=== PATIENT | male | born 1945 | race Hispanic/Latino ===

== ENCOUNTER 2018-07-03 10:36 | Emergency (ER) | payer MEDICARE ==
--- OUTSIDE RECORDS SUMMARY | 2018-07-03 10:38 | XMS REPORT | Clinical Summary ---
:1945 Author Organization [facility] Address [address] [place] [address] Care Team Providers Name Role Phone Unavailable Primary Care Provider Unavailable Allergies No Known Allergies Medications Medication Sig Dispensed Refills Start Date End Date Status tamsulosin (FLOMAX) 0.4 Take 0.4 mg by 0 Active mg Cap 24 hr capsule mouth daily. finasteride (PROSCAR) 5 Take 5 mg by 0 Active mg tablet mouth daily. pantoprazole (PROTONIX) Take 40 mg by 0 Active 40 MG tablet mouth daily. doxazosin (CARDURA) 2 MG Take 2 mg by 0 Active tablet mouth nightly. Active Problems Not on file Encounters Date Type Specialty Care Team Description 07/03/2018 Hospital Encounter Pre-Admission Testing Resource, Ana María Arrived Preadmit Phone after 07/02/2017 Social History Tobacco Use Types Packs/Day Years Used Date Former Smoker Quit: 2002 Smokeless Tobacco: Never Used Alcohol Use Drinks/Week oz/Week Comments No Alcohol Habits Answer Date Recorded How often do you have a drink containing alcohol? Never 07/03/2018 How many drinks containing alcohol do you have on a typical Not asked day when you are drinking? How often do you have six or more drinks on one occasion? Not asked Sex Assigned at Date Recorded Not on file Job Start Date Occupation Industry Not on file Not on file Not on file Travel History Travel Start Travel End No recent travel history available. Last Filed Vital Signs Vital Sign Reading Time Taken Blood Pressure - - Pulse - - Temperature - - Respiratory Rate - - Oxygen Saturation - - Inhaled Oxygen Concentration - - Weight 88.9 kg (196 lb) 07/03/2018 8:27 AM CONVERTIBLE SOFA BEDSPRING TESTER Height 165.1 cm (5' 5") 07/03/2018 8:27 AM CONVERTIBLE SOFA BEDSPRING TESTER Body Mass Index 32.62 07/03/2018 8:27 AM CONVERTIBLE SOFA BEDSPRING TESTER Plan of Treatment Date Type Specialty Care Team Description 07/05/2018 Hospital Encounter George Kaplan MD [address] [place] [address] 07/05/2018 Surgery George Kaplan MD CYSTOSCOPY,TURP [address] [place], [place] [id number] Results Not on fileafter 07/02/2017 Insurance Payer Benefit Plan / Group Subscriber ID Type Phone Address [employer] - MEDICARE AARP/MEDICARE COMPLETE xxxxxxxxx [facility] (Home) [place] [address]
--- NOTE | 2018-07-03 11:54 | RAD REPORT ---
EXAM DESCRIPTION: CT - Head Brain Wo Cont - 07/03/2018 11:43 am CLINICAL HISTORY: dizziness, dysequilibrium Headache, hypertension COMPARISON: HEAD BRAIN W O CONTRAST dated 01/07/2012; MAXILLOFACIAL W O CONTRAST dated 10/13/2011; Ches t Abdomen Pelvis W Cont dated 04/22/2016 TECHNIQUE: All CT scans are performed using dose optimization technique as appropriate and may inclu de automated exposure control or mA/KV adjustment according to patient size. FINDINGS: No intracranial hemorrhage, hydrocephalus or extra-axial fluid collection.Mild generalized brain atrophy is present with mild periventricular and deep white matter chronic microvascular ische amanda changes.No areas of brain edema or evidence of midline shift. Mild mucosal thickening is seen involving the ethmoid and sphenoid sinuses. The paranasal sinuses and mastoids are otherwise clear. The calvarium is intact. IMPRESSION: No acute intracranial abnormality.
[2018-07-03 12:05] LABS: Absolute Lymphocytes (CBC) 1.8 K/uL (0.7-4.9); Absolute Monocytes 0.8 K/uL (0.1-1.3); Basophils % 1.5 % (0-1.3); Eosinophils % 4.5 % (0-4.4); Lymphocytes % 19.8 % (15.3-44.8); Monocytes % 8.9 % (3.3-12.3); RBC Red Blood Cell Count 5.37 M/uL (4.33-5.43)
[2018-07-03 12:08] LABS: Protime INR 1.03
[2018-07-03] MEDS ORDERED: LORazepam 2 MG/ML VIAL ONE (12:10)
[2018-07-03 12:26] LABS: ALT/SGPT 31 U/L (12-78); AST/SGOT 19 U/L (15-37); Alkaline Phosphatase 88 U/L (45-117); BUN Blood Urea Nitrogen 12 mg/dL (7-18); Bicarbonate 27 mmol/L (21-32); Bilirubin Direct < 0.1 mg/dL (0-0.2); Bilirubin Total 0.3 mg/dL (0.2-1.0); Glucose Level 106 mg/dL (74-106); NT PRO-BNP 128 pg/mL (<125); Potassium 4.2 mmol/L (3.5-5.1); Protein, Total 8.7 g/dL (6.4-8.2); Sodium Level 140 mmol/L (136-145); Troponin (Emerg Dept Use Only) < 0.02 ng/mL (0.0-0.045)
[2018-07-03] MEDS ORDERED: DOXAZOSIN 2 MG TAB PO ONE (13:15)
[2018-07-03 13:45] LABS: Urine Blood NEGATIVE (NEG); Urine Glucose NEGATIVE (NEG); Urine Protein NEGATIVE (NEG); Urine Specific Gravity 1.015 (1.005-1.030); Urine pH 5.5 (5.0-7.0)
--- NOTE | 2018-07-03 14:38 | ER ---
Nurse's Notes [facility] Name: Jaswant Funes Age: 73 yrs Sex: Male : 1945 Arrival Date: 07/03/2018 Time: 10:39 Bed 5 Private MD: Malina Greenwood H Diagnosis: Elevated Blood Pressure;Intermittent Dizziness Presentation: 07/03 10:56 Presenting complaint: Patient states: "I'm about to have prostate surgery and ss the doctor told me to go to the ER because my blood pressure has been running high and they don't want me having a stroke." Pt reports he has been out of his BP medication x 3 week and he has not been able to get a refill due to finances. Pt c/o intermittent dizziness and headaches x 4 days. Transition of care: patient was not received from another setting of care. Onset of symptoms is unknown. Risk Assessment: Do you want to hurt yourself or someone else? Patient reports no desire to harm self or others. Initial Sepsis Screen: Does the patient meet any 2 criteria? No. Patient's initial sepsis screen is negative. Does the patient have a suspected source of infection? No. Patient's initial sepsis screen is negative. Care prior to arrival: None. 10:56 Method Of Arrival: Wheelchair ss 10:56 Acuity: TODD 4 ss Historical: - Allergies: 10:48 Morphine; tw2 - Home Meds: 10:58 tamsulosin 0.4 mg oral cp24 1 cap once daily [Active]; pantoprazole 40 mg oral TbEC 1 ss tab once daily [Active]; finasteride 5 mg oral tab 1 tab once daily [Active]; doxazosin 2 mg oral tab 1 tab once daily [Active]; - PMHx: 10:48 Bat Bite - left hand; GERD; Hypertension; Rattlesnake Bite - right hand; tw2 10:58 BPH; ss - Immunization history:: Adult Immunizations. - Social history:: Smoking status: . - Ebola Screening: : Patient denies travel to an Ebola-affected area in the 21 days before illness onset. - Family history:: pertinent for hypertension. - Hospitalizations: : No recent hospitalization is reported. Screenin:46 Abuse screen: Denies threats or abuse. Nutritional screening: No deficits noted. tw2 Tuberculosis screening: No symptoms or risk factors identified. Fall Risk None identified. Assessment: 11:30 General: Appears in no apparent distress. uncomfortable, Behavior is calm, cooperative, jl7 appropriate for age. Pain: Complains of pain in NG Pain currently is 5 out of 10 on a pain scale. Neuro: Level of Consciousness is awake, alert, obeys commands, Oriented to person, place, time, situation, Analog Ic Design Architect are equal bilaterally Moves all extremities. Full function Speech is normal, Facial symmetry appears normal. Cardiovascular: Patient's skin is warm and dry. Respiratory: Airway is patent Respiratory effort is even, unlabored, Respiratory pattern is regular, symmetrical. Derm: Skin is pink, warm \\T\\ dry. 11:50 Reassessment: Pt states "Can I get something to calm me down?" Pt appears mildly jl7 anxious at this time. Instructed pt to take some slow deeps breaths. ERD notified, see MAR for orders. 12:30 Reassessment: Patient appears in no apparent distress at this time. Patient and/or jl7 family updated on plan of care and expected duration. Pain level reassessed. Patient is alert, oriented x 3, equal unlabored respirations, skin warm/dry/pink. Patient states symptoms have improved. 13:30 Reassessment: Patient appears in no apparent distress at this time. Patient and/or jl7 family updated on plan of care and expected duration. Pain level reassessed. Patient is alert, oriented x 3, equal unlabored respirations, skin warm/dry/pink. 14:30 Reassessment: Patient appears in no apparent distress at this time. Patient and/or jl7 family updated on plan of care and expected duration. Pain level reassessed. Patient is alert, oriented x 3, equal unlabored respirations, skin warm/dry/pink. Patient states feeling better. Patient states symptoms have improved. Vital Signs: 10:58 BP 175 / 115; Pulse 75; Resp 18; Temp 97.6(TE); Pulse Ox 98% on R/A; Weight 88.9 kg; ss Height 5 ft. 5 in. (165.10 cm); Pain 5/10; 12:00 BP 149 / 101; Pulse 75; Resp 16 S; Pulse Ox 98% on R/A; jl7 13:00 BP 143 / 99; Pulse 73; Resp 16 S; Pulse Ox 98% on R/A; jl7 14:00 BP 130 / 79; Pulse 87; Resp 20 S; Pulse Ox 96% on R/A; jl7 10:58 Body Mass Index 32.62 (88.90 kg, 165.10 cm) ED Course: 10:39 Patient arrived in ED. mr 10:39 Malina Greenwood DO is Private Physician. mr 10:45 Belle Serrano, RN is Primary Nurse. 10:45 Hugo Meek MD is Attending Physician. wa 10:46 Arm band placed on. tw2 10:46 Bed in low position. Call light in reach. monitor car operator on. Pulse ox on. NIBP on. tw2 10:57 Triage completed. 11:17 Azalea Yoon RN is Primary Nurse. jl7 11:34 CT completed. Patient tolerated procedure well. Patient moved to CT via wheelchair. Patient moved back from CT. 11:43 CT Head Brain wo Cont In Process Unspecified. EDCA 12:00 Initial lab(s) drawn, by me, sent to lab. Inserted saline lock: 20 gauge in left hand, jl7 using aseptic technique. Blood collected. 14:36 Malina Greenwood DO is Referral Physician. wa 14:37 Colin Mace MD is Referral Physician. wa 14:54 No provider procedures requiring assistance completed. IV discontinued, intact, jl7 bleeding controlled, No redness/swelling at site. Pressure dressing applied. Administered Medications: 13:25 Drug: Doxazosin 2 mg Route: PO; jl7 14:24 Follow up: Response: No adverse reaction; Blood pressure is lowered jl7 14:54 Drug: Aspirin Chewable Tablet 324 mg Route: PO; jl7 14:54 Follow up: Response: Medication administered at discharge. jl7 Outcome: 14:37 Discharge ordered by . wa 14:54 Discharged to home ambulatory. jl7 14:54 Condition: stable 14:54 Discharge instructions given to patient, family, Instructed on discharge instructions, follow up and referral plans. medication usage, Demonstrated understanding of instructions, follow-up care, medications, Prescriptions given X 1. 14:55 Patient left the ED. jl7 Signatures: Dispatcher [employer] EDCA Sandy Coleman Thania Minaya Belle Serrano, RN RN ss Tamy Mora RN RN tw2 Azalea Yoon RN RN jl7 Hugo Meek MD MD wa Corrections: (The following items were deleted from the chart) : 10:48 Home Meds: Prevacid 30 mg Oral cpDR 1 cap once daily; 10:58 10:48 Home Meds: acetaminophen-codeine 300-30 mg Oral tab 1 tab as needed;
--- NOTE | 2018-07-03 14:39 | EDPHYS ---
Physician Documentation [facility] Name: Jaswant Funes Age: 73 yrs Sex: Male : 1945 Arrival Date: 07/03/2018 Time: 10:39 Bed 5 Private MD: Malina Greenwood H ED Physician Hugo Meek HPI: 07/03 11:37 This 73 yrs old Male presents to ER via Wheelchair with complaints of High wa Blood Pressure, Dizziness, Headache. 11:37 The patient presents with lightheadedness. Onset: The symptoms/episode began/occurred 4 wa day(s) ago. Context: c/o occasional dizziness x 1 month. last 4 days more persistent. describes as lightheaded, feeling like about to pass out. admits to mild NG. states BP elevated. Has not filled his doxaxosin for the past 2 weeks. slated for surgery on prostate this week. advised to seek care for elevated BP. denies vomiting or off balance. denies photophobia. Denies chest pain or SOB. admits to LE swelling. Also has chronic low back pain. denies bloody urine or difficulty voiding at the moment. denies fever or chills. Modifying factors: The symptoms are alleviated by nothing, the symptoms are aggravated by walking, standing.. Associated signs and symptoms: Pertinent positives: headache, Pertinent negatives: agitation, chest pain, confusion, diaphoresis, focal weakness, head injury, nausea, numbness, palpitations, shortness of breath, syncope, tingling, vomiting. Severity of symptoms: At their worst the symptoms were moderate in the emergency department the symptoms are unchanged. Patient's baseline: Neuro: alert and fully oriented, Motor: no deficits, Ambulation: walks without assistance, Speech: normal, The patient has a previous history of HTN. The patient has experienced similar episodes in the past, a few times. The patient has not recently seen a physician. PMD: Dr. Greenwood. Scheduled for a TURP at a [facility] location this week. Historical: - Allergies: 10:48 Morphine; tw2 - Home Meds: 10:58 tamsulosin 0.4 mg oral cp24 1 cap once daily [Active]; pantoprazole 40 mg oral TbEC 1 ss tab once daily [Active]; finasteride 5 mg oral tab 1 tab once daily [Active]; doxazosin 2 mg oral tab 1 tab once daily [Active]; - PMHx: 10:48 Bat Bite - left hand; GERD; Hypertension; Rattlesnake Bite - right hand; tw2 10:58 BPH; ss - Immunization history:: Adult Immunizations. - Social history:: Smoking status: . - Ebola Screening: : Patient denies travel to an Ebola-affected area in the 21 days before illness onset. - Family history:: pertinent for hypertension. - Hospitalizations: : No recent hospitalization is reported. ROS: 12:17 Constitutional: Negative for fever, chills, and weight loss, Eyes: Negative for injury, wa pain, redness, and discharge, ENT: Negative for injury, pain, and discharge, Neck: Negative for injury, pain, and swelling, Cardiovascular: Negative for chest pain, palpitations, and edema, Respiratory: Negative for shortness of breath, cough, wheezing, and pleuritic chest pain, Abdomen/GI: Negative for abdominal pain, nausea, vomiting, diarrhea, and constipation, Back: Negative for injury and pain, : Negative for injury, bleeding, discharge, and swelling, MS/Extremity: Negative for injury and deformity, Skin: Negative for injury, rash, and discoloration, Psych: Negative for depression, anxiety, suicide ideation, homicidal ideation, and hallucinations. 12:17 Neuro: Positive for dizziness, headache, Negative for seizure activity, syncope, tingling, tremor, visual changes, weakness. 12:17 All other systems are negative. Exam: 12:20 Constitutional: This is a well developed, well nourished patient who is awake, alert, wa and in no acute distress. Head/Face: Normocephalic, atraumatic. Eyes: Pupils equal round and reactive to light, extra-ocular motions intact. Lids and lashes normal. Conjunctiva and sclera are non-icteric and not injected. Cornea within normal limits. Periorbital areas with no swelling, redness, or edema. ENT: Nares patent. No nasal discharge, no septal abnormalities noted. Tympanic membranes are normal and external auditory canals are clear. Oropharynx with no redness, swelling, or masses, exudates, or evidence of obstruction, uvula midline. Mucous membranes moist. Neck: Trachea midline, no thyromegaly or masses palpated, and no cervical lymphadenopathy. Supple, full range of motion without nuchal rigidity, or vertebral point tenderness. No Meningismus. Chest/axilla: Normal chest wall appearance and motion. Nontender with no deformity. No lesions are appreciated. Cardiovascular: Regular rate and rhythm with a normal S1 and S2. No gallops, murmurs, or rubs. Normal PMI, no JVD. No pulse deficits. Respiratory: Lungs have equal breath sounds bilaterally, clear to auscultation and percussion. No rales, rhonchi or wheezes noted. No increased work of breathing, no retractions or nasal flaring. Abdomen/GI: Soft, non-tender, with normal bowel sounds. No distension or tympany. No guarding or rebound. No evidence of tenderness throughout. Back: No spinal tenderness. No costovertebral tenderness. Full range of motion. Skin: Warm, dry with normal turgor. Normal color with no rashes, no lesions, and no evidence of cellulitis. MS/ Extremity: Pulses equal, no cyanosis. Neurovascular intact. Full, normal range of motion. Psych: Awake, alert, with orientation to person, place and time. Behavior, mood, and affect are within normal limits. 12:20 Neuro: Orientation: is normal, Mentation: is normal, Memory: is normal, Cranial nerves: grossly normal, Cerebellar function: is grossly normal based on the patient's age, normal finger to nose testing, heel to villa testing is normal, able to perform alternating rapid hand movements. Vital Signs: 10:58 BP 175 / 115; Pulse 75; Resp 18; Temp 97.6(TE); Pulse Ox 98% on R/A; Weight 88.9 kg; ss Height 5 ft. 5 in. (165.10 cm); Pain 5/10; 12:00 BP 149 / 101; Pulse 75; Resp 16 S; Pulse Ox 98% on R/A; jl7 13:00 BP 143 / 99; Pulse 73; Resp 16 S; Pulse Ox 98% on R/A; jl7 14:00 BP 130 / 79; Pulse 87; Resp 20 S; Pulse Ox 96% on R/A; jl7 10:58 Body Mass Index 32.62 (88.90 kg, 165.10 cm) MDM: 10:45 Patient medically screened. hi 12:23 Differential diagnosis: dizziness. on tamsulosin started recently. also on finasteride wa and doxazosin. Consider med involvement. out of meds. noted HTN. needs work up to r/o neuro vs cardiovascular etiology. will monitor, work up and reassess. 12:39 Data reviewed: vital signs, nurses notes, lab test result(s), EKG, radiologic studies. wa Test interpretation: by ED physician or midlevel provider: EKG: interpreted by me: HR 74. [place] normal. Intervals within normal limits. normal QRS and T waves. no obvious ischemic or dysrhythmic changes. . 12:41 Test interpretation: by ED physician or midlevel provider: normal CBC; CMP; troponin; wa BNP; PT/INR. . 12:41 Test interpretation: by ED physician or midlevel provider: normal CXR. Head CT: no wa acute process. Response to treatment: the patient's symptoms have markedly improved after treatment, noted repeat BP at 1230 Hrs: 149/101. improved. pt resting comfortably. ordered own dose of doxazoxin. pending admin.. 12:52 Test interpretation: by ED physician or midlevel provider: UA normal. wa 13:44 ED course: 1345 hrs: BP 143/99. pt eating lunch. no complaints at this time. advised me wa to call pre-op nurse at [facility] regarding his results as they referred him here. got voice-mail. Left message to call back. 14:35 ED course: 1435 hrs: BP 143/79. spoke with pre-op nurse Latoya. will have pt take his wa results to his PCP to discuss clearance. . 07/03 11:27 Order name: Basic Metabolic Panel; Complete Time: 12:07/03 11:27 Order name: CBC with Diff; Complete Time: 12:24 07/03 11:27 Order name: Hepatic Function; Complete Time: 12:07/03 11:27 Order name: Magnesium; Complete Time: 12:07/03 11:27 Order name: Protime (+inr); Complete Time: 12:24 07/03 11:27 Order name: Troponin (emerg Dept Use Only); Complete Time: 12:31 07/03 11:27 Order name: CT Head Brain wo Cont; Complete Time: 12:03 07/03 11:27 Order name: EKG; Complete Time: 11:28 07/03 11:27 Order name: Cardiac monitoring; Complete Time: 13:04 hi 07/03 11:27 Order name: BNP; Complete Time: 12:29 hi 07/03 12:55 Order name: Urine Dipstick--Ancillary (enter results) 07/03 12:58 Order name: Diet Regular; Complete Time: 12:59 07/03 11:27 Order name: EKG - Nurse/Tech; Complete Time: 13:04 hi 07/03 11:27 Order name: IV Saline Lock; Complete Time: 13: hi 07/03 11:27 Order name: Labs collected and sent; Complete Time: 13:04 07/03 11:27 Order name: O2 Sat Monitoring; Complete Time: 13: hi 07/03 11:27 Order name: Urine Dipstick-Ancillary (obtain specimen); Complete Time: 14:17 hi Administered Medications: 13:25 Drug: Doxazosin 2 mg Route: PO; [facility] 14:24 Follow up: Response: No adverse reaction; Blood pressure is lowered [facility] 14:54 Drug: Aspirin Chewable Tablet 324 mg Route: PO; [facility] 14:54 Follow up: Response: Medication administered at discharge. [facility] Disposition: 07/03/18 14:37 Discharged to Home. Impression: Elevated Blood Pressure, Intermittent Dizziness. - Condition is Stable. - Discharge Instructions: Hypertension, Dizziness, [id number]. - Prescriptions for Doxazosin 2 mg Oral Tablet - take 1 tablet by ORAL route once daily; 30 tablet. - Medication Reconciliation Form, Thank You Letter, Antibiotic Education, Prescription Opioid Use form. - Follow up: Malina Greenwood DO; When: Today; Reason: discuss presentation. Follow up: Colin Mace MD; When: 2 - 3 days; Reason: Recheck today's complaints. - Problem is new. - Symptoms have improved. - Notes: call Dr. Greenwood to connect with your surgeon for clearance for surgery. follow up with Dr. Mace, the Neurologist, for further evaluation of your dizziness. Return to ER immediately if rapidly worsening symptoms and or concerns. Continue to take your blood pressure pills daily as prescribed. Signatures: Dispatcher [employer] EDAR Belle Serrano RN RN ss Tamy Mora RN RN 2 Azalea Yoon RN RN jl7 Hugo Meek MD MD wa Corrections: (The following items were deleted from the chart) 10:58 10:48 Home Meds: Prevacid 30 mg Oral cpDR 1 cap once daily; 2 10:58 10:48 Home Meds: acetaminophen-codeine 300-30 mg Oral tab 1 tab as needed; 2 14:55 14:37 07/03/2018 14:37 Discharged to Home. Impression: Elevated Blood Pressure; jl7 Intermittent Dizziness. Condition is Stable. Forms are Medication Reconciliation Form, Thank You Letter, Antibiotic Education, Prescription Opioid Use. Follow up: Malina Greenwood; When: Today; Reason: discuss presentation. Follow up: Colin Mace; When: 2 - 3 days; Reason: Recheck today's complaints. Problem is new. Symptoms have improved. ann marie
[2018-07-03] MEDS ORDERED: ASPIRIN 81 MG CHEWABLE TABLET ONE (14:57)
[2018-07-03 15:02] VITALS: TEMP 97.6
[2018-07-03 15:05] VITALS: BP 130/79; O2SAT 96
--- NOTE | 2018-07-03 17:08 | EKG ---
Test Date: 2018-07-03 Test Time: 11:49:20 Electrical System Specialist: ROXANNE MEASUREMENT RESULTS: Intervals: Rate: 74 AK: 188 QRSD: 80 QT: 366 QTc: 406 [place]: P: 35 AK: 188 QRS: 23 T: 50 INTERPRETIVE STATEMENTS: Normal sinus rhythm Normal ECG Compared to ECG 06/21/2018 11:37:05 ST (T wave) deviation no longer present Electronically Signed On 07-03-18 17:06:49 REAL ESTATE MANAGEMENT SPECIALIST by Alejandro Urrutia
== END 2018-07-03 14:55 | disposition home or self-care (01) ==
LOC: ER 10:36
DX: I10 Essential (primary) hypertension (principal); K21.9 Gastro-esophageal reflux disease without esophagitis; Z88.5 Allergy status to narcotic agent
CPT/HCPCS: 36415; 70450; 80048; 80076; 81003; 83735; 83880; 84484; 85025; 85610; 93005; 99285

== ENCOUNTER 2019-01-02 10:51 | Emergency (ER) | payer MEDICARE ==
--- OUTSIDE RECORDS SUMMARY | 2019-01-02 10:55 | XMS REPORT | Encounter Summary ---
:1945 Author Reason for Visit POST OP Instructions 1. Benign prostatic hyperplasia PSA, total + free, serum or plasma benign prostatic hyperplasia: care instructions Myrbetriq 25 mg tablet,extended release Discussion Note: None recorded. Plan of Care Reminders Provider Appointments FOLLOW-UP George Kaplan MD 30 02/13/2019 12:30PM Lab PSA, Total [facility] + Free, Serum or 08/09/2018 [facility] (Lab) Plasma Referral None recorded. Procedures None recorded. Surgeries None recorded. Imaging None recorded. Medications Name Start Date acetaminophen 300 mg-codeine 30 mg tablet amantadine HCl 100 mg capsule doxazosin 2 mg tablet finasteride 5 mg tablet Take 1 tablet every day by oral route for 90 days. Fluzone High-Dose [id number] (PF) 180 mcg/0.5 mL intramuscular syringe levofloxacin 500 mg tablet Myrbetriq 25 mg tablet,extended release Take 1 tablet every day by oral route. pantoprazole 40 mg tablet,delayed release ProAir HFA 90 mcg/actuation aerosol inhaler sulfamethoxazole 800 mg-trimethoprim 160 mg tablet Take 1 tablet twice a day by oral route for 5 days. tamsulosin 0.4 mg capsule Take 1 capsule every day by oral route. tramadol 50 mg tablet Medications Administered None recorded. Vitals Weight 185 lbs Lab Results None recorded. Allergies Code Code System Name Reaction Severity Status Onset NKDA Problems No Known Problems Procedures None recorded. Vaccine List None recorded. Social History Smoking Status Never Smoker Past Encounters 08/09/2018 Benign Prostatic Hyperplasia George Kaplan MD: [address] [place] [address], [address], [place] [address], Ph. [phone] History of Present Illness None recorded. Review of Systems None recorded. Physical Exam None recorded.
--- OUTSIDE RECORDS SUMMARY | 2019-01-02 10:55 | XMS REPORT | Encounter Summary ---
:1945 Author Reason for Visit Follow Up Results Instructions 1. Raised prostate specific antigen urinalysis, dipstick prostate biopsy and ultrasound: about this test Discussion Note: None recorded. Plan of Care Reminders Provider Appointments POST-op George Kaplan MD 08/09/2018 10:00AM Lab Urinalysis, In-House Results Dipstick 05/17/2018 Referral None recorded. Procedures None recorded. Surgeries None recorded. Imaging None recorded. Medications Name Start Date acetaminophen 300 mg-codeine 30 mg tablet amantadine HCl 100 mg capsule doxazosin 2 mg tablet finasteride 5 mg tablet Take 1 tablet every day by oral route for 90 days. Fluzone High-Dose [id number] (PF) 180 mcg/0.5 mL intramuscular syringe levofloxacin 500 mg tablet pantoprazole 40 mg tablet,delayed release ProAir HFA 90 mcg/actuation aerosol inhaler sulfamethoxazole 800 mg-trimethoprim 160 mg tablet Take 1 tablet twice a day by oral route for 5 days. tamsulosin 0.4 mg capsule Take 1 capsule every day by oral route. tramadol 50 mg tablet Medications Administered None recorded. Vitals None recorded. Lab Results Date Name Specimen Result Interpretation Description Value Range Status Address 07/02/2018 Urinalysis Normal Color, yellow Final [place] Complete, Urine [facility] (Lab): [address] [place] [address] Normal Appearance, clear clear Final [place] Urine [facility] (Lab): [address] [place] [address] Normal Urine negative negative Final [place] Glucose [facility] (Lab): [address] [place] [address] Normal Bilirubin, negative negative Final [place] Urine [facility] (Lab): [address] [place] [address] Normal Ketone, negative negative Final [place] Urine [facility] (Lab): [address] [place] [address] Normal Specific 1.017 1.003-1.03 Final [place] 0 [facility] (Lab): [address] [place] [address] Normal Blood Urine negative negative Final [place] [facility] (Lab): [address] [place] [address] Normal pH,urine 5.500 5-9 Final [place] [facility] (Lab): [address] [place] [address] Normal Protein negative negative Final [place] Urine (UA) [facility] (Lab): [address] [place] [address] Normal Urobilinoge normal 0.2-1.0 Final [place] n, Urine mg/dL mg/dL [facility] (Lab): [address] [place] [address] Normal Nitrate, negative negative Final [place] Urine [facility] (Lab): [address] [place] [address] Normal Urine negative negative Final [place] Leukocyte [facility] (Lab): [address] [place] [address] Normal RBC, Urine =1-5 0-5 /[hpf] Final [place] /[hpf] [facility] (Lab): [address] [place] [address] Normal WBC, Urine =1-5 0-5 /[hpf] Final [place] /[hpf] [facility] (Lab): [address] [place] [address] Normal Epithelial <1 /[hpf] 0-5 /[hpf] Final [place] Cell [facility] (Lab): [address] [place] [address] Normal Bacteria, none none Final [place] Urine detected [facility] /[hpf] /[hpf] [facility] (Lab): [address] [place] [address] Normal Casts,urine =2-5 /lpf none Final [place] [facility] /lpf [facility] (Lab): [address] [place] [address] Normal Urine no Final [place] Culture [facility] (Lab): [address] [place] [address] 07/02/2018 Culture, Bacteria Ur no growth Final [place] Urine Cult at 48 hrs. [facility] (Lab): [address] [place] [address] Allergies Code Code System Name Reaction Severity Status Onset NKDA Problems No Known Problems Procedures None recorded. Vaccine List None recorded. Social History Smoking Status Never Smoker Past Encounters 06/14/2018 George Kaplan MD: [address] [place] [address], [address], [place] [address], Ph. 05/17/2018 Raised Prostate Specific Antigen George Kaplan MD: [address] [place] [address], [facility], [place] [address], Ph. History of Present Illness None recorded. Review of Systems None recorded. Physical Exam None recorded.
--- OUTSIDE RECORDS SUMMARY | 2019-01-02 10:55 | XMS REPORT | Encounter Summary ---
:1945 Author Reason for Visit Follow Up Visit Instructions None recorded.Discussion Note: None recorded.Patient educational handouts: No information available. Plan of Care Reminders Provider Appointments None recorded. Lab None recorded. Referral None recorded. Procedures None recorded. Surgeries None recorded. Imaging None recorded. Medications Name Start Date acetaminophen 300 mg-codeine 30 mg tablet amantadine HCl 100 mg capsule doxazosin 2 mg tablet finasteride 5 mg tablet Take 1 tablet every day by oral route for 90 days. Flomax 0.4 mg capsule Take 1 capsule every day by oral route. Fluzone High-Dose 7649-8541 (PF) 180 mcg/0.5 mL intramuscular syringe levofloxacin 500 mg tablet Myrbetriq 25 mg tablet,extended release Take 1 tablet every day by oral route. pantoprazole 40 mg tablet,delayed release ProAir HFA 90 mcg/actuation aerosol inhaler sulfamethoxazole 800 mg-trimethoprim 160 mg tablet Take 1 tablet twice a day by oral route for 5 days. tramadol 50 mg tablet Medications Administered None recorded. Vitals Height Weight BMI Blood Pressure 57 in 185 lbs 40 kg/m2 130/80 mm[Hg] Lab Results None recorded. Allergies Code Code System Name Reaction Severity Status Onset NKDA Problems No Known Problems Procedures None recorded. Vaccine List None recorded. Social History Smoking Status Never Smoker Past Encounters 10/25/2018 George Kaplan MD: [address] [place] [address], [address], [place] [address], Ph. History of Present Illness None recorded. Review of Systems None recorded. Physical Exam None recorded.
--- OUTSIDE RECORDS SUMMARY | 2019-01-02 10:55 | XMS REPORT ---
:1945 Author Organization [facility] Address [address] [place] [address] [address] Care Team Providers Name Role Phone CHEYANNE HICKMAN Unavailable Unavailable Problems This patient has no known problems. Allergies, Adverse Reactions, Alerts This patient has no known allergies or adverse reactions. Medications This patient has no known medications. Results Test Description Test Time Test Comments Text Results Atomic Results Result Comments TISSUE EXAM 2018-07-11 14:20:00 Surgical Pathology Report Case: [id number] Authorizing Provider: Cheyanne Hickman MD Collected: 07/05/2018 1015 Ordering Location: [facility] PERIOPERATIVE Received: 07/05/2018 1218 SERVICES Pathologist: Roger Sun MD Specimen: Prostate, TURP, PROSTATE CHIPS PROSTATE, TURP: - NODULAR HYPERPLASIA Signing Pathologist Direct Phone Line: [phone] signed by Roger Sun MD on 07/11/2018 at 2:20 [id number] prostatic hyperplasiaProstate chipsThe specimen is received in a formalin-filled container and labeled with the patient's information and labeled "prostate chips" and consists of 9 gm of salas-pink prostate chips measuring 3.5 x 3 x 2 cm in aggregate. Grossly, no areas of suspicion are seen. The specimen is entirely submitted A1 through A8. CG/pl Performed. BASIC METABOLIC PANEL 2018-07-06 05:23:00 Test Item Value Reference Range Comments SODIUM (BEAKER) (test 136 meq/L 136-145 jueu=724) POTASSIUM (BEAKER) (test 4.3 meq/L 3.5-5.1 xfmm=426) CHLORIDE (BEAKER) (test 105 meq/L 98-107 mxsn=630) CO2 (BEAKER) (test yahl=424) 21 meq/L 22-29 BLOOD UREA NITROGEN (BEAKER) 15 mg/dL 7-21 (test ksgn=380) CREATININE (GREGAKER) (test 0.93 mg/dL 0.57-1.25 qsaj=044) GLUCOSE RANDOM (GREGAKER) 110 mg/dL 70-105 (test gpyy=828) CALCIUM (GREGAKER) (test 9.1 mg/dL 8.4-10.2 qpab=645) EGFR (MIKAELA) (test 80 mL/min/1.73 sq m ESTIMATED GFR IS NOT drej=3449) ACCURATE CREATININE CLEARANCE IN PREDICTING GLOMERULAR FILTRATION RATE. ESTIMATED GFR IS NOT APPLICABLE FOR DIALYSIS PATIENTS. HEMOGLOBIN AND [id number] 05:06:00 Test Item Value Reference Range Comments HEMOGLOBIN (MIKAELA) (test olei=450) 12.1 GM/DL 13.7-17.5 HEMATOCRIT (MIKAELA) (test pvka=269) 38.0 % 40.1-51.0 POCT-HEMOGLOBIN [id number] 07:55:00 Test Item Value Reference Range Comments POC-HEMOGLOBIN METER 12.9 g/dL 13.0-16.8 TESTED AT [facility] [address] (MIKAELA) (test zzpt=8423) [facility] [id number]
--- OUTSIDE RECORDS SUMMARY | 2019-01-02 10:55 | XMS REPORT | Clinical Summary ---
:[address] [facility] Address [address] [place] [address] Care Team Providers Name Role Phone Malina Greenwood Primary Care Provider Allergies No Known Allergies Medications Medication Sig Dispensed Refills Start Date End Date Status tamsulosin (FLOMAX) Take 0.4 mg 0 Active 0.4 mg Cap 24 hr by mouth capsule daily. finasteride (PROSCAR) Take 5 mg by 0 Active 5 mg tablet mouth daily. pantoprazole Take 40 mg by 0 Active (PROTONIX) 40 MG mouth daily. tablet doxazosin (CARDURA) 2 Take 2 mg by 0 Active MG tablet mouth nightly. traMADol (ULTRAM) 50 Take 2 30 tablet 0 07/06/2018 mg tablet tablets (100 9 mg total) by mouth every 6 (six) hours as needed for up to 10 days. Max Daily Amount: 400 mg docusate sodium Take 1 10 capsule 0 07/06/2018 (COLACE) 100 MG capsule (100 9 capsule mg total) by mouth 2 (two) times daily for 10 days. ciprofloxacin HCl Take 1 tablet 14 tablet 0 07/06/2018 Discontinued (CIPRO) 500 MG tablet (500 mg 9 total) by mouth 2 (two) times daily for 7 days. levoFLOXacin Take 1 tablet 7 tablet 0 07/06/2018 (LEVAQUIN) 500 MG (500 mg 9 tablet total) by mouth daily for 7 days. phenazopyridine Take 1 tablet 10 tablet 0 07/06/2018 (PYRIDIUM) 200 MG (200 mg 9 tablet total) by mouth 3 (three) times daily as needed for up to 3 days. Active Problems Problem Noted Date BPH (benign prostatic hyperplasia) 07/05/2018 Encounters Date Type Specialty Care Team Description 07/05/2018 Anesthesia Event Iván Moses MD 07/05/2018 Surgery George Kaplan CYSTOSCOPY,TURP MD Ariel 07/05/2018 - Hospital Encounter General Internal George Kaplan 07/06/2018 Medicine MD Ariel 07/05/2018 Travel 07/03/2018 Hospital Encounter Pre-Admission Resource, Oqmt Testing Preadmit Phone after 01/01/2018 Social History Tobacco Use Types Packs/Day Years [...] Vital Sign Reading Time Taken Blood Pressure 144/74 07/06/2018 11:34 AM [employer] Pulse 63 07/06/2018 11:34 AM [employer] Temperature 35.6 C (96.1 F) 07/06/2018 11:34 AM [employer] Respiratory Rate 16 07/06/2018 11:34 AM [employer] Oxygen Saturation 95% 07/06/2018 11:34 AM [employer] Inhaled Oxygen Concentration - - Weight 88.9 kg (196 lb) 07/05/2018 7:14 AM [employer] Height 165.1 cm (5' 5") 07/05/2018 7:14 AM [employer] Body Mass Index 32.62 07/05/2018 7:14 AM [employer] Plan of Treatment Not on file Procedures Procedure Name Priority Date/Time Associated Diagnosis Comments HEMOGLOBIN AND Routine 07/06/2018 3:39 Results for this HEMATOCRIT [facility] [employer] procedure are in the results section. BASIC METABOLIC Routine 07/06/2018 3:39 Results for this PANEL (7) [facility] [employer] procedure are in the results section. TISSUE EXAM AP Routine 07/05/2018 10:15 Results for this AM [employer] procedure are in the results section. CYSTOSCOPY,TURP 07/05/2018 8:00 Benign prostatic AM [employer] hyperplasia, unspecified whether lower urinary tract symptoms present Case Notes 60 MINS PER WES POCT-HEMOGLOBIN METER Routine 07/05/2018 7:54 AM [employer] after 01/01/2018 Results Hemoglobin and hematocrit - in AM (07/06/2018 3:39 AM [employer]) Hemoglobin 12.1 (L) 13.7 - 17.5 GM/DL [facility] Hematocrit 38.0 (L) 40.1 - 51.0 % [facility] Specimen Blood Performing Organization Address City/State/Zipcode Phone Number [address] [address] CENTER Basic Metabolic Panel - In AM (07/06/2018 3:39 AM [employer]) Sodium 136 136 - 145 meq/L [facility] Potassium 4.3 3.5 - 5.1 meq/L [facility] Chloride 105 98 - 107 meq/L [facility] CO2 21 (L) 22 - 29 meq/L [facility] BUN 15 7 - 21 mg/dL [facility] Creatinine 0.93 0.57 - 1.25 mg/dL [facility] Glucose 110 (H) 70 - 105 mg/dL [facility] Calcium 9.1 8.4 - 10.2 mg/dL [facility] EGFR 80Comment: ESTIMATED GFR IS mL/min/1.73 sq m [facility] NOT ACCURATE CREATININE [facility] CENTER CLEARANCE IN PREDICTING GLOMERULAR FILTRATION RATE. ESTIMATED GFR IS NOT APPLICABLE FOR DIALYSIS PATIENTS. Specimen Blood Performing Organization Address City/[facility] Phone Number [address] [address] [place] Tissue Exam (07/05/2018 10:15 AM [employer]) Case Report Surgical Pathology Report Case: [id number] [facility] Authorizing Provider:George Kaplan MDCollected: 07/05/2018 1015 [facility] Ordering Location: [facility] OQMT PERIOPERATIVE Received: 07/05/2018 1218 SERVICES Pathologist: Roger Sun MD Specimen:Prostate, TURP, PROSTATE CHIPS DIAGNOSIS PROSTATE, TURP: [facility] - NODULAR HYPERPLASIA [facility] Signing Pathologist Direct Phone Line: [phone] CPT Code(s) 865[address] [facility] CLINICAL HISTORY Benign prostatic [facility] hyperplasia [facility] SPECIMEN SOURCE Prostate chips [facility] GROSS DESCRIPTION The specimen is received in [facility] a formalin-filled container [facility] and labeled with the patient's information and labeled "prostate chips" and consists of 9 gm of salas-pink prostate chips measuring 3.5 x 3 x 2 cm in aggregate. Grossly, no areas of suspicion are seen. The specimen is entirely submitted A1 through A8. CG/pl MICROSCOPIC DESCRIPTION Performed. [facility] Specimen Tissue - Prostate, TURP Performing Organization Address City/[facility] Phone Number [address] [address] CENTER POC-Hemoglobin meter (07/05/2018 7:54 AM [employer]) POC-Hemoglobin Meter 12.9 (L)Comment: TESTED 13.0 - 16.8 g/dL [facility] AT [address] [address] Specimen Blood Performing Organization Address City/[facility] Phone Number [address] [address] CENTER after 01/01/2018 Insurance Payer Benefit Plan / Group Subscriber ID Type Phone Address [facility] - MEDICARE AARP/MEDICARE COMPLETE xxxxxxxxx MGD CARE Advance Directives For more information, please contact:[place] [phone] Bethany GarciamarianEast [place], [place] [phone] Code Status Date Activated Date Inactivated Comments Full Code 07/05/2018 10:49 AM This code status was determined by: Patient
--- OUTSIDE RECORDS SUMMARY | 2019-01-02 10:55 | XMS REPORT | Encounter Summary ---
:1945 Author Reason for Visit POST OP Instructions 1. Benign prostatic hyperplasia PSA, total + free, serum or plasma benign prostatic hyperplasia: care instructions Discussion Note: None recorded. Plan of Care Reminders Provider Appointments FOLLOW-UP George Kaplan MD 30 02/13/2019 12:30PM Lab PSA, Total [facility] + Free, Serum or 08/09/2018 [facility] (Lab) Plasma Referral None recorded. Procedures None recorded. Surgeries None recorded. Imaging None recorded. Medications Name Start Date acetaminophen 300 mg-codeine 30 mg tablet amantadine HCl 100 mg capsule doxazosin 2 mg tablet finasteride 5 mg tablet Take 1 tablet every day by oral route for 90 days. Fluzone High-Dose 2220-4112 (PF) 180 mcg/0.5 mL intramuscular syringe levofloxacin [...] 08/09/2018 Benign Prostatic Hyperplasia George Kaplan MD: [address] [place] [address], [address], [place] [address], Ph. History of Present Illness None recorded. Review of Systems None recorded. Physical Exam None recorded.
[2019-01-02] MEDS ORDERED: HYDROMORPHONE HCL 1 MG/ML INJ ONE (11:41)
[2019-01-02] MEDS ORDERED: PROMETHAZINE 25 MG/ML VIAL ONE (11:41)
[2019-01-02] MEDS ORDERED: FENTANYL CITR 100 MCG/2 ML ONE (11:45)
[2019-01-02] MEDS ORDERED: ONDANSETRON 4 MG/2 ML VIAL ONE (11:45)
[2019-01-02] MEDS ORDERED: NA CHLORIDE 0.9% 500 ML ONE (11:46)
[2019-01-02 11:57] LABS: Absolute Lymphocytes (CBC) 1.7 K/uL (0.7-4.9); Basophils % 0.9 % (0-1.3); Hematocrit 39.5 % (39.6-49.0); Lymphocytes % 21.8 % (15.3-44.8); MPV 8.9 fL (7.6-11.3); RBC Red Blood Cell Count 4.69 M/uL (4.33-5.43)
[2019-01-02 12:13] LABS: Bilirubin Direct 0.1 mg/dL (0-0.2); Bilirubin Total 0.3 mg/dL (0.2-1.0); Potassium 4.5 mmol/L (3.5-5.1); Protein, Total 8.3 g/dL (6.4-8.2)
[2019-01-02 12:53] LABS: Urine Blood NEGATIVE (NEG); Urine Glucose NEGATIVE (NEG); Urine Protein NEGATIVE (NEG); Urine Specific Gravity 1.015 (1.005-1.030)
--- NOTE | 2019-01-02 13:04 | RAD REPORT ---
EXAM DESCRIPTION: CTAbdomen Pelvis W Contrast - 01/02/2019 12:56 pm CLINICAL HISTORY: Abdominal pain. right flank pain COMPARISON: No comparisons TECHNIQUE: Biphasic CT imaging of the abdomen and pelvis was performed with 100 ml non-ionic IV cont rast. All CT scans are performed using dose optimization technique as appropriate and may include automated exposure control or mA/KV adjustment according to patient size. FINDINGS: The lung bases are clear.Small hiatal hernia. Mild fatty liver is noted. No aggressive mass or biliary dilatation. The spleen, pancreas and adrenal glands are normal. Multiple bilateral renal cysts are present, including a large exophytic cyst post erior left kidney measuring 5.5 cm. No bowel obstruction, free air, free fluid or abscess. Prominent diverticulosis of the sigmoid colon seen. No finding to indicate diverticulitis. Small appendiceal stump seen. Bilateral fat containing i nguinal hernias, slightly larger on the left. No evidence of significant lymphadenopathy. Prostate gl and is mildly prominent and projects into the bladder base. Lumbar degenerative changes are present. IMPRESSION: Moderate to large bilateral inguinal hernias, slightly larger on the left. No bowel invo lvement. Prominent sigmoid diverticulosis without diverticulitis.
[2019-01-02] MEDS ORDERED: DIAZEPAM 10 MG/2 ML INJ SYRINGE ONE (15:03)
[2019-01-02] MEDS ORDERED: dexAMETHasone 10 MG/ML VIAL ONE (15:03)
--- NOTE | 2019-01-02 15:38 | ER ---
Nurse's Notes [facility] Name: Jaswant Funes Age: 73 yrs Sex: Male : 1945 Arrival Date: 01/02/2019 Time: 10:55 Bed 19 Private MD: Malina Greenwood H Diagnosis: Inguinal hernia;Sciatica, right side Presentation: 01/02 11:08 Presenting complaint: Right flank pain that radiates to right groin x 2 weeks, fall hb from standing yesterday, pain is worse after fall. Denies fever/urinary s/s. On Bactrim Day 7 for UTI. Transition of care: patient was not received from another setting of care. Onset of symptoms was December 31, 2018. Risk Assessment: Do you want to hurt yourself or someone else? Patient reports no desire to harm self or others. Initial Sepsis Screen: Does the patient meet any 2 criteria? No. Patient's initial sepsis screen is negative. Does the patient have a suspected source of infection? No. Patient's initial sepsis screen is negative. Care prior to arrival: None. 11:08 Method Of Arrival: Wheelchair hb 11:08 Acuity: TODD 3 hb Historical: - Allergies: 11:12 Morphine; hb - Home Meds: 11:12 doxazosin 2 mg Oral tab 1 tab once daily [Active]; finasteride 5 mg Oral tab 1 tab once hb daily [Active]; pantoprazole 40 mg Oral TbEC 1 tab once daily [Active]; tamsulosin 0.4 mg Oral cp24 1 cap once daily [Active]; - PMHx: 11:12 Bat Bite - left hand; BPH; GERD; Hypertension; Rattlesnake Bite - right hand; hb - PSHx: 11:12 TURP; hb - Immunization history:: Adult Immunizations up to date. - Social history:: Smoking status: Patient/guardian denies using tobacco. - Ebola Screening: : No symptoms or risks identified at this time. Screenin:40 Abuse screen: Denies threats or abuse. Denies injuries from another. Nutritional jl7 screening: No deficits noted. Tuberculosis screening: No symptoms or risk factors identified. Fall Risk IV access (20 points). Total Tucker Fall Scale indicates No Risk (0-24 pts). Assessment: 11:40 General: Appears in no apparent distress. uncomfortable, Behavior is cooperative, jl7 anxious. Pain: Complains of pain in right lower quadrant Pain currently is 8 out of 10 on a pain scale. Quality of pain is described as sharp, Pain began 2-3 days ago. Is continuous. Neuro: Level of Consciousness is awake, alert, obeys commands, Oriented to person, place, time, situation. Cardiovascular: Patient's skin is warm and dry. Respiratory: Airway is patent Respiratory effort is even, unlabored, Respiratory pattern is regular, symmetrical. GI: Abdomen is round non-distended, Reports lower abdominal pain. : Reports Currently being treated for UTI. Derm: Skin is pink, warm \\T\\ dry. 12:30 Reassessment: Patient appears in no apparent distress at this time. Patient and/or jl7 family updated on plan of care and expected duration. Pain level reassessed. Patient is alert, oriented x 3, equal unlabored respirations, skin warm/dry/pink. 13:44 Reassessment: Patient appears in no apparent distress at this time. Patient and/or jl7 family updated on plan of care and expected duration. Pain level reassessed. Patient is alert, oriented x 3, equal unlabored respirations, skin warm/dry/pink. pt denies any pain at this time, reports "It hurts if I move though.". 15:22 Reassessment: Pt ambulated with cane approximately 50 ft with steady gate, reports jl7 decreased pain at this time. Vital Signs: 11:10 BP 127 / 83; Pulse 77; Resp 16; Temp 98.8(TE); Pulse Ox 100% on R/A; Weight 88.9 kg; hb Height 5 ft. 5 in. (165.10 cm); Pain 8/10; 13:00 BP 131 / 79; Pulse 69; Resp 16 S; Pulse Ox 100% on R/A; jl7 13:46 BP 135 / 76; Pulse 64; Resp 16; Pulse Ox 99% ; Pain 0/10; jl7 14:30 BP 140 / 76; Pulse 68; Resp 16 S; Pulse Ox 100% on R/A; Pain 2/10; jl7 15:24 Pain 0/10; jl7 15:25 Pain 0/10; jl7 15:48 BP 136 / 75; Pulse 67; Resp 16 S; Pulse Ox 100% on R/A; jl7 11:10 Body Mass Index 32.62 (88.90 kg, 165.10 cm) hb ED Course: 10:55 Patient arrived in ED. ag5 10:56 Malina Greenwood DO is Private Physician. ag5 11:10 Triage completed. hb 11:10 Arm band placed on. hb 11:14 Salo Esposito PA is PHCP. [facility] 11:14 Julio C Lopes MD is Attending Physician. m 11:26 Azalea Yoon RN is Primary Nurse. jl7 11:40 Patient has correct armband on for positive identification. Bed in low position. Call jl7 light in reach. Side rails up X 1. Pulse ox on. NIBP on. 11:45 No provider procedures requiring assistance completed. Inserted saline lock: 20 gauge jl7 in right forearm, using aseptic technique. Blood collected. 11:45 Initial lab(s) drawn, by wa, sent to lab. First set of blood cultures drawn by wa. jl7 12:03 Second set of blood cultures drawn by me. jl7 12:56 CT Abd/Pelvis - IV Contrast Only In Process Unspecified. EDMS 15:37 Malina Greenwood DO is Referral Physician. [facility] 15:49 IV discontinued, intact, bleeding controlled, No redness/swelling at site. Pressure jl7 dressing applied. Administered Medications: 11:45 Drug: NS 0.9% 500 ml Route: IV; Rate: bolus; Site: right forearm; jl7 12:30 Follow up: Response: No adverse reaction; IV Status: Completed infusion; IV Intake: jl7 500ml 11:45 Drug: Zofran 4 mg Route: IVP; Site: right forearm; jl7 12:30 Follow up: Response: No adverse reaction jl7 11:47 Drug: fentaNYL (PF) 25 mcg Route: IVP; Site: right forearm; jl7 12:15 Follow up: Response: No adverse reaction; Pain is decreased jl7 14:55 Drug: Valium 2 mg Route: IVP; Site: right antecubital; jl7 15:24 Follow up: Pain 0/10 Adult; Response: No adverse reaction; Pain is decreased jl7 14:58 Drug: Decadron - Dexamethasone 10 mg Route: IVP; Site: right antecubital; jl7 15:25 Follow up: Pain 0/10 Adult; Response: No adverse reaction; Pain is decreased jl7 Intake: 12:30 IV: 500ml; Total: 500ml. jl7 Outcome: 15:37 Discharge ordered by . orlin 15:49 Discharged to home ambulatory, with cane jl7 15:49 Condition: stable 15:49 Discharge instructions given to patient, Instructed on discharge instructions, follow up and referral plans. medication usage, Demonstrated understanding of instructions, follow-up care, medications, Prescriptions given X 1. 15:50 Patient left the ED. jl7 Signatures: Dispatcher [employer] EDMS Salo Esposito PA PA jmm Baxter, Heather RN RN Azalea Sin RN RN jl7 Carly Anderson ag5 Corrections: (The following items were deleted from the chart) 11:14 11:08 Presenting complaint: Right flank pain that radiates to right groin x 2 days. hb Denies fever/urinary s/s. On Bactrim Day 7 for UTI hb
--- NOTE | 2019-01-02 15:38 | EDPHYS ---
Physician Documentation [facility] Name: Jaswant Funes Age: 73 yrs Sex: Male : 1945 Arrival Date: 01/02/2019 Time: 10:55 Bed 19 Private MD: Malina Greenwood H ED Physician Julio C Lopes HPI: 01/02 11:21 This 73 yrs old Male presents to ER via Wheelchair with complaints of Back jmm Pain, Fall Injury, Shortness Of Breath. 11:21 The patient presents with pain that is acute. Onset: The symptoms/episode jmm began/occurred acutely, 2 week(s) ago. The pain radiates to the abdomen. Associated signs and symptoms: Pertinent positives: fever. This is a 73 year old male with a history of GERD, HTN, that presents to the ED with complaints of right flank pain for the past 2 weeks. Began bactrim 1 week ago with no relief of symptoms. patient complaints of subjective fever and chills. . Historical: - Allergies: 11:12 Morphine; hb - Home Meds: 11:12 doxazosin 2 mg Oral tab 1 tab once daily [Active]; finasteride 5 mg Oral tab 1 tab once hb daily [Active]; pantoprazole 40 mg Oral TbEC 1 tab once daily [Active]; tamsulosin 0.4 mg Oral cp24 1 cap once daily [Active]; - PMHx: 11:12 Bat Bite - left hand; BPH; GERD; Hypertension; Rattlesnake Bite - right hand; hb - PSHx: 11:12 TURP; hb - Immunization history:: Adult Immunizations up to date. - Social history:: Smoking status: Patient/guardian denies using tobacco. - Ebola Screening: : No symptoms or risks identified at this time. ROS: 11:21 Cardiovascular: Negative for chest pain, palpitations, and edema, Respiratory: Negative jmm for shortness of breath, cough, wheezing, and pleuritic chest pain. 11:21 : Negative for injury, bleeding, discharge, and swelling, MS/Extremity: Negative for injury and deformity, Skin: Negative for injury, rash, and discoloration, Neuro: Negative for headache, weakness, numbness, tingling, and seizure. 11:21 Constitutional: Positive for body aches, fever. 11:21 Abdomen/GI: Positive for abdominal pain. 11:21 Back: Positive for flank pain, on the right. Exam: 11:21 Head/Face: atraumatic. Eyes: EOMI, no conjunctival erythema appreciated ENT: Moist jm Mucus Membranes Neck: Trachea midline, Supple Chest/axilla: Normal chest wall appearance and motion. Cardiovascular: Regular rate and rhythm. No edema appreciated Respiratory: Normal respirations, no respiratory distress appreciated 11:21 Constitutional: The patient appears in no acute distress, alert, awake. 11:21 Abdomen/GI: Inspection: abdomen appears normal, Bowel sounds: normal, Palpation: soft, mild abdominal tenderness, in the right lower quadrant. 11:21 Back: CVA tenderness, that is moderate, is noted on the right. 11:21 Musculoskeletal/extremity: ROM: no acute changes. 11:21 Neuro: Orientation: is normal, Mentation: is normal, Memory: is normal, Motor: is normal. 11:21 Psych: Behavior/mood is pleasant, cooperative. Vital Signs: 11:10 BP 127 / 83; Pulse 77; Resp 16; Temp 98.8(TE); Pulse Ox 100% on R/A; Weight 88.9 kg; hb Height 5 ft. 5 in. (165.10 cm); Pain 8/10; 13:00 BP 131 / 79; Pulse 69; Resp 16 S; Pulse Ox 100% on R/A; jl7 13:46 BP 135 / 76; Pulse 64; Resp 16; Pulse Ox 99% ; Pain 0/10; jl7 14:30 BP 140 / 76; Pulse 68; Resp 16 S; Pulse Ox 100% on R/A; Pain 2/10; jl7 15:24 Pain 0/10; jl7 15:25 Pain 0/10; jl7 15:48 BP 136 / 75; Pulse 67; Resp 16 S; Pulse Ox 100% on R/A; jl7 11:10 Body Mass Index 32.62 (88.90 kg, 165.10 cm) hb MDM: 11:21 Patient medically screened. [facility] 15:36 Data reviewed: vital signs, nurses notes. Counseling: I had a detailed discussion with orlin the patient and/or guardian regarding: the historical points, exam findings, and any diagnostic results supporting the discharge/admit diagnosis, lab results, radiology results, the need for outpatient follow up, to return to the emergency department if symptoms worsen or persist or if there are any questions or concerns that arise at home. ED course: Decreased pain in the ED. Patient able to ambulate. Extensor hallucis longus intact. I do not suspect cord compression or cauda equina. Patient will follow up with pcp and otherwise advised to return to the ED if symptoms worsen. . 01/02 11:24 Order name: Basic Metabolic Panel; Complete Time: 12:48 [facility] 01/02 11:24 Order name: CBC with Diff; Complete Time: 12:05 [facility] 01/02 11:24 Order name: Creatinine for Radiology; Complete Time: 12:12 [facility] 01/02 11:24 Order name: Hepatic Function; Complete Time: 12:48 [facility] 01/02 11:24 Order name: Lipase; Complete Time: 12:48 [facility] 01/02 11:24 Order name: Blood Culture Adult (2) [facility] 01/02 11:24 Order name: Procalcitonin; Complete Time: 12:48 [facility] 01/02 11:24 Order name: Lactate; Complete Time: 12:48 [facility] 01/02 11:24 Order name: CT Abd/Pelvis - IV Contrast Only; Complete Time: 13:07 [facility] 01/02 12:27 Order name: Urine Dipstick--Ancillary (enter results); Complete Time: 12:55 01/02 11:24 Order name: IV Saline Lock; Complete Time: 12:07 [facility] 01/02 11:24 Order name: Labs collected and sent; Complete Time: 12:07 [facility] 01/02 11:24 Order name: Urine Dipstick-Ancillary (obtain specimen); Complete Time: 12:28 [facility] 01/02 11:51 Order name: Labs - recollect needed; Complete Time: 12:06 bd Administered Medications: 11:45 Drug: NS 0.9% 500 ml Route: IV; Rate: bolus; Site: right forearm; jl7 12:30 Follow up: Response: No adverse reaction; IV Status: Completed infusion; IV Intake: jl7 500ml 11:45 Drug: Zofran 4 mg Route: IVP; Site: right forearm; jl7 12:30 Follow up: Response: No adverse reaction jl7 11:47 Drug: fentaNYL (PF) 25 mcg Route: IVP; Site: right forearm; jl7 12:15 Follow up: Response: No adverse reaction; Pain is decreased jl7 14:55 Drug: Valium 2 mg Route: IVP; Site: right antecubital; jl7 15:24 Follow up: Pain 0/10 Adult; Response: No adverse reaction; Pain is decreased jl7 14:58 Drug: Decadron - Dexamethasone 10 mg Route: IVP; Site: right antecubital; jl7 15:25 Follow up: Pain 0/10 Adult; Response: No adverse reaction; Pain is decreased jl7 Disposition: 16:21 Co-signature as Attending Physician, Julio C Lopes MD. rn Disposition: 01/02/19 15:37 Discharged to Home. Impression: Inguinal hernia, Sciatica, right side. - Condition is Stable. - Discharge Instructions: Sciatica, Inguinal Hernia, Adult. - Prescriptions for Valium 2 mg Oral Tablet - take 1 tablet by ORAL route every 8 hours As needed; 20 tablet. - Medication Reconciliation Form, Thank You Letter, Antibiotic Education, Prescription Opioid Use form. - Follow up: Malina Greenwood DO; When: 2 - 3 days; Reason: Recheck today's complaints, Continuance of care, Re-evaluation by your physician. Signatures: Dispatcher [employer] EDMS Ani Madden Joel, PA PA [facility] Julio C Lopes MD MD rn Baxter, Heather, RN RN hb Leal, Jahala, RN RN jl7 Corrections: (The following items were deleted from the chart) 15:50 15:37 01/02/2019 15:37 Discharged to Home. Impression: Inguinal hernia; Sciatica, right jl7 side. Condition is Stable. Forms are Medication Reconciliation Form, Thank You Letter, Antibiotic Education, Prescription Opioid Use. Follow up: Malina Greenwood; When: 2 - 3 days; Reason: Recheck today's complaints, Continuance of care, Re-evaluation by your physician. reyes
[2019-01-02 16:15] VITALS: O2SAT 100
[2019-01-02 16:19] VITALS: BP 136/75
== END 2019-01-02 15:50 | disposition home or self-care (01) ==
LOC: ER 10:51
DX: K40.90 Unilateral inguinal hernia, without obstruction or gangrene, not specified as recurrent (principal); M54.31 Sciatica, right side; I10 Essential (primary) hypertension; N40.0 Benign prostatic hyperplasia without lower urinary tract symptoms; K21.9 Gastro-esophageal reflux disease without esophagitis; Z88.5 Allergy status to narcotic agent
CPT/HCPCS: 87040 ×2; 85025; 80048; 36415; 80076; 83605; 81003; 83690; 84145; 74177; Q9967; J3360; J3010; J1100; J2405; J1170; J2550

== ENCOUNTER 2019-01-04 12:30 | Emergency (ER) | payer MEDICARE ==
--- OUTSIDE RECORDS SUMMARY | 2019-01-04 12:31 | XMS REPORT ---
:1945 [facility] Address [address] [place] [address] [address] Care Team Providers Name Role Phone CHEYANNE HICKMAN Unavailable Unavailable Problems This patient has no known problems. Allergies, Adverse Reactions, Alerts This patient has no known allergies or adverse reactions. Medications This patient has no known medications. Results Test Description Test Time Test Comments Text Results Atomic Results Result Comments TISSUE EXAM 2018-07-11 14:20:00 Surgical Pathology Report Case: [id number] Authorizing Provider: Cheyanne Hickman MD Collected: 07/05/2018 1015 Ordering Location: [facility] PERIOPERATIVE Received: 07/05/2018 1218 SERVICES Pathologist: Roger Sun MD Specimen: Prostate, TURP, PROSTATE CHIPS PROSTATE, TURP: - NODULAR HYPERPLASIA Signing Pathologist Direct Phone Line: [phone] signed by Roger Sun MD on 07/11/2018 at 2:20 [id number] prostatic hyperplasiaProstate chipsThe specimen is received in [...] Comments SODIUM (BEAKER) (test 136 meq/L 136-145 loyy=630) POTASSIUM (BEAKER) (test 4.3 meq/L 3.5-5.1 jezo=073) CHLORIDE (BEAKER) (test 105 meq/L 98-107 jwrp=233) CO2 (BEAKER) (test kutx=272) 21 meq/L 22-29 BLOOD UREA NITROGEN (BEAKER) 15 mg/dL 7-21 (test xndc=302) CREATININE (GREGAKER) (test 0.93 mg/dL 0.57-1.25 kjoz=365) GLUCOSE RANDOM (GREGAKER) 110 mg/dL 70-105 (test pwip=586) CALCIUM (GREGAKER) (test 9.1 mg/dL 8.4-10.2 qygr=239) EGFR (MIKAELA) (test 80 mL/min/1.73 sq m ESTIMATED GFR IS NOT ergp=7579) ACCURATE CREATININE CLEARANCE IN PREDICTING GLOMERULAR FILTRATION RATE. ESTIMATED GFR IS NOT APPLICABLE FOR DIALYSIS PATIENTS. HEMOGLOBIN AND [id number] 05:06:00 Test Item Value Reference Range Comments HEMOGLOBIN (MIKAELA) (test uevx=021) 12.1 GM/DL 13.7-17.5 HEMATOCRIT (MIKAELA) (test olka=582) 38.0 % 40.1-51.0 POCT-HEMOGLOBIN [id number] 07:55:00 Test Item Value Reference Range Comments POC-HEMOGLOBIN METER 12.9 g/dL 13.0-16.[address] [facility] [address] (MIKAELA) (test wzoj=9784) [facility] [id number]
--- OUTSIDE RECORDS SUMMARY | 2019-01-04 12:31 | XMS REPORT | Clinical Summary ---
:1945 Author Organization [facility] Address [address] [place] [address] Care Team Providers Name Role Phone Malina [...] Pre-Admission Resource, Oqmt Testing Preadmit Phone after 01/03/2018 Social History Tobacco Use Types Packs/Day Years [...] Taken Blood Pressure 144/74 07/06/2018 11:34 AM SENIOR INFORMATION SECURITY ANALYST Pulse 63 07/06/2018 11:34 AM SENIOR INFORMATION SECURITY ANALYST Temperature 35.6 C (96.1 F) 07/06/2018 11:34 AM SENIOR INFORMATION SECURITY ANALYST Respiratory Rate 16 07/06/2018 11:34 AM SENIOR INFORMATION SECURITY ANALYST Oxygen Saturation 95% 07/06/2018 11:34 AM SENIOR INFORMATION SECURITY ANALYST Inhaled Oxygen Concentration - - Weight 88.9 kg (196 lb) 07/05/2018 7:14 AM SENIOR INFORMATION SECURITY ANALYST Height 165.1 cm (5' 5") 07/05/2018 7:14 AM SENIOR INFORMATION SECURITY ANALYST Body Mass Index 32.62 07/05/2018 7:14 AM SENIOR INFORMATION SECURITY ANALYST Plan of Treatment Not on file Procedures Procedure Name Priority Date/Time Associated Diagnosis Comments HEMOGLOBIN AND Routine 07/06/2018 3:39 Results for this HEMATOCRIT AM SENIOR INFORMATION SECURITY ANALYST procedure are in the results section. BASIC METABOLIC Routine 07/06/2018 3:39 Results for this PANEL (7) AM SENIOR INFORMATION SECURITY ANALYST procedure are in the results section. TISSUE EXAM AP Routine 07/05/2018 10:15 Results for this AM SENIOR INFORMATION SECURITY ANALYST procedure are in the results section. CYSTOSCOPY,TURP 07/05/2018 8:00 Benign prostatic AM SENIOR INFORMATION SECURITY ANALYST hyperplasia, unspecified whether lower urinary tract symptoms present Case Notes 60 MINS PER WES POCT-HEMOGLOBIN METER Routine 07/05/2018 7:54 AM SENIOR INFORMATION SECURITY ANALYST after 01/03/2018 Results Hemoglobin and hematocrit - in AM (07/06/2018 3:39 AM SENIOR INFORMATION SECURITY ANALYST) Hemoglobin 12.1 (L) 13.7 - 17.5 GM/DL [facility] Hematocrit 38.0 (L) 40.1 - 51.0 % [facility] Specimen Blood Performing Organization Address City/State/Zipcode Phone Number [address] [address] CENTER Basic Metabolic Panel - In AM (07/06/2018 3:39 AM SENIOR INFORMATION SECURITY ANALYST) Sodium 136 136 - 145 meq/L [facility] Potassium 4.3 3.5 - 5.1 meq/L [facility] Chloride 105 98 - 107 meq/L [facility] CO2 21 (L) 22 - 29 meq/L [facility] BUN 15 7 - 21 mg/dL [facility] Creatinine 0.93 0.57 - 1.25 mg/dL [facility] Glucose 110 (H) 70 - 105 mg/dL [facility] Calcium 9.1 8.4 - 10.2 mg/dL [facility] EGFR 80Comment: ESTIMATED GFR IS mL/min/1.73 sq m [facility] NOT ACCURATE CREATININE [facility] CLEARANCE IN PREDICTING GLOMERULAR FILTRATION RATE. ESTIMATED GFR IS NOT APPLICABLE FOR DIALYSIS PATIENTS. Specimen Blood Performing Organization Address City/[facility]/Zipcode Phone Number [address] [address] [phone] [facility] Tissue Exam (07/05/2018 10:15 AM SENIOR INFORMATION SECURITY ANALYST) Case Report Surgical Pathology Report Case: [id number] [facility] Authorizing Provider:George Kaplan MDCollected: 07/05/2018 1015 [facility] Ordering Location: [facility] OQMT PERIOPERATIVE Received: 07/05/2018 1218 SERVICES Pathologist: Roger Sun MD Specimen:Prostate, TURP, PROSTATE CHIPS DIAGNOSIS PROSTATE, TURP: [facility] - NODULAR HYPERPLASIA [facility] Signing Pathologist Direct Phone Line: [phone] CPT Code(s) [address]4825 [facility] CLINICAL HISTORY Benign prostatic [facility] hyperplasia [facility] SPECIMEN SOURCE Prostate chips [facility] GROSS DESCRIPTION The specimen is received in [facility] a formalin-filled container [facility] and labeled with the patient's information and labeled "prostate chips" and consists of 9 gm of salas-pink prostate chips measuring 3.5 x 3 x 2 cm in aggregate. Grossly, no areas of suspicion are seen. The specimen is entirely submitted A1 through A8. CG/pl MICROSCOPIC DESCRIPTION Performed. [facility] Specimen Tissue - Prostate, TURP Performing Organization Address City/[facility] Phone Number [address] [address] [phone] CENTER POC-Hemoglobin meter (07/05/2018 7:54 AM SENIOR INFORMATION SECURITY ANALYST) POC-Hemoglobin Meter 12.9 (L)Comment: TESTED 13.0 - 16.8 g/dL [facility] AT [address] [address] Specimen Blood Performing Organization Address City/[facility] Cent[facility]ode Phone Number [address] [address] CENTER after 01/03/2018 Insurance Payer Benefit Plan / Group Subscriber ID Type Phone Address [facility] - MEDICARE AARP/MEDICARE COMPLETE xxxxxxxxx MGD CARE Advance Directives For more information, please contact:[place] [phone] Bethany GarciamarianSaint [place], [place] [phone] Code Status Date Activated Date Inactivated Comments Full Code 07/05/2018 10:49 AM This code status was determined by: Patient
[2019-01-04] MEDS ORDERED: FENTANYL CITR 100 MCG/2 ML ONE ×2 (13:07→14:32)
[2019-01-04] MEDS ORDERED: ONDANSETRON 4 MG/2 ML VIAL ONE (13:07)
[2019-01-04] MEDS ORDERED: NA CHLORIDE 0.9% 1,000 ML ONE (13:07)
[2019-01-04 13:25] LABS: Absolute Lymphocytes (CBC) 2.8 K/uL (0.7-4.9); Basophils % 0.5 % (0-1.3); Hematocrit 42.3 % (39.6-49.0); Lymphocytes % 27.4 % (15.3-44.8); MPV 9.4 fL (7.6-11.3); RBC Red Blood Cell Count 4.97 M/uL (4.33-5.43)
[2019-01-04 13:26] LABS: ALT/SGPT 40 U/L (12-78); AST/SGOT 17 U/L (15-37); Albumin 4.3 g/dL (3.4-5.0); Alkaline Phosphatase 79 U/L (45-117); BUN Blood Urea Nitrogen 23 mg/dL (7-18); Bicarbonate 25 mmol/L (21-32); Bilirubin Direct < 0.1 mg/dL (0-0.2); Bilirubin Total 0.2 mg/dL (0.2-1.0); Glucose Level 85 mg/dL (74-106); Lipase 143 U/L (73-393); Potassium 4.9 mmol/L (3.5-5.1); Protein, Total 8.5 g/dL (6.4-8.2); Sodium Level 140 mmol/L (136-145)
--- NOTE | 2019-01-04 14:48 | RAD REPORT ---
EXAM DESCRIPTION: CT - Stone Protocol - 01/04/2019 2:31 pm CLINICAL HISTORY: Abdominal pain. Flank pain COMPARISON: January 02, 2019 CT TECHNIQUE: Computed axial tomography of the abdomen pelvis was obtained without oral or IV contrast. Lack of IV and oral contrast limits evaluation of solid organs, bowel, and vessels. Coronal reformat mahesh images were obtained and reviewed. All CT scans are performed using dose optimization technique as appropriate and may include automated exposure control or mA/KV adjustment according to patient size. FINDINGS: A renal calculus is not seen. An ureteral calculus is not noted. A bladder calculus is not present. Bilateral renal cysts. No change since the prior exam The liver, spleen, pancreas and adrenals appear grossly normal There is no evidence of diverticulitis. Small hiatal hernia Small umbilical hernia. Moderate bilateral fat containing inguinal hernias. A small portion of sigmoi d colon is present within the left inguinal hernia. Prostate gland is moderately enlarged. IMPRESSION: Negative for a genitourinary calculus Bilateral inguinal hernias
[2019-01-04] MEDS ORDERED: DIAZEPAM 10 MG/2 ML INJ SYRINGE ONE (15:19)
[2019-01-04] MEDS ORDERED: dexAMETHasone 10 MG/ML VIAL ONE (15:19)
[2019-01-04] MEDS ORDERED: NA CHLORIDE 0.9% 250 ML ONE (16:36)
--- NOTE | 2019-01-04 18:13 | EDPHYS ---
Physician Documentation [facility] Name: Jaswant Funes Age: 73 yrs Sex: Male : 1945 Arrival Date: 01/04/2019 Time: 12:32 Bed 7 Private MD: Malina Greenwood H ED Physician Guanaco Mccall HPI: 01/04 13:10 This 73 yrs old Male presents to ER via Wheelchair with complaints of cp Abdominal Pain. 13:10 The patient presents with abdominal pain in the lower abdomen. cp 13:10 Onset: The symptoms/episode began/occurred 2 week(s) ago, and became worse 2 day(s) ago.cp 13:10 The symptoms radiate to cp 13:10 Associated signs and symptoms: Pertinent negatives: blood in stools, constipation, cp dysuria, fever, hematuria, testicular pain, vomiting. Modifying factors: the symptoms are aggravated by movement, walking. Severity of pain: in the emergency department the pain is unchanged despite home interventions. Patient reports history of bilateral inguinal hernias and having appt with DR Herrera next week. Historical: - Allergies: 12:37 Morphine; hb - Immunization history:: Adult Immunizations up to date. - Social history:: Smoking status: Patient/guardian denies using tobacco. - Ebola Screening: : No symptoms or risks identified at this time. ROS: 13:17 Constitutional: Negative for body aches, chills, fever, poor PO intake. cp 13:17 Eyes: Negative for injury, pain, redness, and discharge. cp 13:17 ENT: Negative for drainage from ear(s), ear pain, sore throat, difficulty swallowing, difficulty handling secretions. 13:17 Cardiovascular: Negative for chest pain, edema, palpitations. 13:17 Respiratory: Negative for cough, shortness of breath, wheezing. 13:17 Abdomen/GI: Positive for abdominal pain, Negative for vomiting, diarrhea, constipation, black/tarry stool, flatulence. 13:17 : Positive for groin pain, Negative for urinary symptoms, penile pain. 13:17 All other systems are negative. Exam: 13:20 ECG was reviewed by the Attending Physician. cp 13:25 Constitutional: The patient appears in no acute distress, alert, awake, cp non-diaphoretic, non-toxic, well developed, well nourished, uncomfortable. 13:25 Head/Face: Normocephalic, atraumatic. cp 13:25 Eyes: Periorbital structures: appear normal, Conjunctiva: normal, no exudate, no injection, Sclera: no appreciated abnormality, Lids and lashes: appear normal, bilaterally. 13:25 ENT: External ear(s): are unremarkable, Nose: is normal, Mouth: is normal, Posterior pharynx: Airway: no evidence of obstruction, patent. 13:25 Neck: ROM/movement: is normal, is supple, without pain, no range of motions limitations, no nuchal rigidity. 13:25 Chest/axilla: Inspection: normal, Palpation: is normal, no crepitus, no tenderness. 13:25 Cardiovascular: Rate: normal, Rhythm: regular, Edema: is not appreciated, JVD: is not appreciated. 13:25 Respiratory: the patient does not display signs of respiratory distress, Respirations: normal, no use of accessory muscles, no retractions, no splinting, no tachypnea, labored breathing, is not present, Breath sounds: are clear throughout, no decreased breath sounds, no stridor, no wheezing. 13:25 Abdomen/GI: Inspection: abdomen appears normal, Bowel sounds: active, all quadrants, Palpation: soft, in all quadrants, moderate abdominal tenderness, in the right lower quadrant and left lower quadrant, rebound tenderness, is not appreciated, voluntary guarding, is not appreciated, involuntary guarding, is not appreciated. 13:25 Back: pain, that is moderate, ROM is painful, with all movement, Straight leg raises: of both lower extremities does not illicit pain. 13:25 Skin: no rash present. 13:25 Neuro: Orientation: to person, place \T\ time. Mentation: is normal, Cerebellar function: is grossly normal, Motor: moves all fours, strength is normal, Sensation: no obvious gross deficits, Deep tendon reflexes are 2+ (normal) in the right patellar, right Achilles, left patellar and left Achilles. Vital Signs: 12:36 BP 138 / 75; Pulse 76; Resp 15; Temp 99.4(TE); Pulse Ox 98% ; Weight 74.84 kg; Height 5 hb ft. 5 in. (165.10 cm); Pain 10/10; 13:41 BP 132 / 69; Pulse 71; Resp 16; Pulse Ox 97% on R/A; aj 14:44 BP 123 / 71; Pulse 62; Resp 16; Pulse Ox 99% on R/A; aj 15:53 BP 114 / 58; Pulse 57; Resp 16; Pulse Ox 98% on R/A; aj 17:25 BP 144 / 86; Pulse 66; Resp 18; Pulse Ox 98% on R/A; aj 18:35 BP 135 / 82; Pulse 67; Resp 18; Pulse Ox 99% on R/A; aj 12:36 Body Mass Index 27.46 (74.84 kg, 165.10 cm) hb MDM: 12:50 Patient medically screened. cp 14:00 Differential diagnosis: Pyelonephritis, Testicular Torsion, Ureterolithiasis, urinary cp tract infection, incarcerated hernia, cauda equina, spinal stenosis. 18:11 Data reviewed: vital signs, nurses notes, lab test result(s), radiologic studies, CT cp scan. 18:11 Counseling: I had a detailed discussion with the patient and/or guardian regarding: the cp historical points, exam findings, and any diagnostic results supporting the discharge/admit diagnosis, radiology results, the need for outpatient follow up, a general surgeon, to return to the emergency department if symptoms worsen or persist or if there are any questions or concerns that arise at home. Response to treatment: the patient's symptoms have markedly improved after treatment, VSS. Pain markedly improved. Will discharge to home for continued monitoring. 01/04 13:01 Order name: Basic Metabolic Panel; Complete Time: 14:04 cp 01/04 14:04 Interpretation: Normal except: BUN 23; CRE 1.46; GFR 48. cp 01/04 13:01 Order name: CBC with Diff; Complete Time: 14:04 cp 01/04 13:01 Order name: Creatinine for Radiology; Complete Time: 14:04 cp 01/04 13:01 Order name: Hepatic Function; Complete Time: 14:04 cp 01/04 13:01 Order name: Lipase; Complete Time: 14:04 cp 01/04 14:04 Order name: CT Stone Protocol; Complete Time: 15:05 cp 01/04 14:05 Order name: EKG Electrocardiogram; Complete Time: 14:46 EDMS 01/04 13:01 Order name: IV Saline Lock; Complete Time: 13:03 cp 08/02 13:01 Order name: Labs collected and sent; Complete Time: 13:03 cp EC:20 Rate is 70 beats/min. Rhythm is regular. MT interval is normal. QRS interval is normal. cp QT interval is normal. Interpreted by me. Reviewed by me. Administered Medications: 13:11 Drug: Zofran 4 mg Route: IVP; Site: right antecubital; aj 16:30 Follow up: Response: No adverse reaction bp 13:11 Drug: fentaNYL (PF) 25 mcg Route: IVP; Site: right antecubital; aj 16:30 Follow up: Response: No adverse reaction bp 14:36 Drug: fentaNYL (PF) 25 mcg Route: IVP; Site: right antecubital; aj 16:30 Follow up: Response: No adverse reaction bp 15:20 Drug: Decadron - Dexamethasone 10 mg Route: IVP; Site: right antecubital; bp 16:30 Follow up: Response: No adverse reaction bp 15:20 Drug: Diazepam 2 mg Route: IVP; Site: right antecubital; bp 16:30 Follow up: Response: No adverse reaction bp 16:39 Drug: NS 0.9% 250 ml Route: IV; Rate: bolus; Site: right antecubital; aj 18:36 Follow up: Response: No adverse reaction; IV Status: Completed infusion; IV Intake: aj 250ml Disposition: 01/04/19 18:12 Discharged to Home. Impression: Bilateral inguinal hernia, without obstruction or gangrene, Low back pain. - Condition is Stable. - Discharge Instructions: Back Pain, Adult, Inguinal Hernia, Adult. - Prescriptions for Tramadol 50 mg Oral Tablet - take 1 tablet by ORAL route every 8 hours as needed; 20 tablet. ketoprofen 50 mg Oral capsule - take 1 capsule by ORAL route every 6 hours; 30 capsule. - Medication Reconciliation Form, Thank You Letter, Antibiotic Education, Prescription Opioid Use form. - Follow up: Malina Greenwood DO; When: 2 - 3 days; Reason: Recheck today's complaints. - Problem is an ongoing problem. - Symptoms have improved. Addendum: 01/07/2019 09:04 Co-signature as Attending Physician, Guanaco Mccall MD I agree with the assessment and k dr plan of care. Signatures: Dispatcher [employer] EDSahara Atkins RN RN aj Rittger, Kevin, MD MD kdr Lalo Walter PA PA cp Kathy Spicer RN RN Jadiel Crowley RN RN bp Corrections: (The following items were deleted from the chart) 01/04 18:20 13:02 UA MICROSCOPIC+U.LAB.BRZ ordered. EDMS EDMS 18:37 18:12 01/04/2019 18:12 Discharged to Home. Impression: Bilateral inguinal hernia, aj without obstruction or gangrene; Low back pain. Condition is Stable. Forms are Medication Reconciliation Form, Thank You Letter, Antibiotic Education, Prescription Opioid Use. Follow up: Malina Greenwood; When: 2 - 3 days; Reason: Recheck today's complaints. Problem is an ongoing problem. Symptoms have improved. cp
--- NOTE | 2019-01-04 18:13 | ER ---
Nurse's Notes [facility] Name: Jaswant Funes Age: 73 yrs Sex: Male : 1945 Arrival Date: 01/04/2019 Time: 12:32 Bed 7 Private MD: Malina Greenwood H Diagnosis: Bilateral inguinal hernia, without obstruction or gangrene;Low back pain Presentation: 01/04 12:35 Presenting complaint: Low back pain that wraps around to abdomen x 2 weeks, worse over hb last 2 days. Transition of care: patient was not received from another setting of care. Onset of symptoms was January 04, 2019. Risk Assessment: Do you want to hurt yourself or someone else? Patient reports no desire to harm self or others. Care prior to arrival: None. 12:35 Method Of Arrival: Wheelchair hb 12:35 Acuity: TODD 3 hb Historical: - Allergies: 12:37 Morphine; hb - Immunization history:: Adult Immunizations up to date. - Social history:: Smoking status: Patient/guardian denies using tobacco. - Ebola Screening: : No symptoms or risks identified at this time. Screenin:11 Abuse screen: Denies threats or abuse. Denies injuries from another. Nutritional aj screening: No deficits noted. Tuberculosis screening: No symptoms or risk factors identified. Fall Risk None identified. Assessment: 13:11 General: Appears in no apparent distress. comfortable, Behavior is calm, cooperative, aj appropriate for age. Pain: Complains of pain in abdomen. Neuro: Level of Consciousness is awake, alert, obeys commands, Oriented to person, place, time, situation, Appropriate for age. Respiratory: Airway is patent Respiratory effort is even, unlabored, Respiratory pattern is regular, symmetrical. GI: Abdomen is non-distended, obese, Bowel sounds present X 4 quads. Abd is soft and non tender X 4 quads. Reports lower abdominal pain, upper abdominal pain. Derm: Skin is intact, is healthy with good turgor, Skin is pink, warm \T\ dry. normal. 18:35 Reassessment: Patient appears in no apparent distress at this time. No changes from aj previously documented assessment. Patient and/or family updated on plan of care and expected duration. Pain level reassessed. Patient is alert, oriented x 3, equal unlabored respirations, skin warm/dry/pink. Ambulated to wheelchair with steady slow gait. Vital Signs: 12:36 BP 138 / 75; Pulse 76; Resp 15; Temp 99.4(TE); Pulse Ox 98% ; Weight 74.84 kg; Height 5 hb ft. 5 in. (165.10 cm); Pain 10/10; 13:41 BP 132 / 69; Pulse 71; Resp 16; Pulse Ox 97% on R/A; aj 14:44 BP 123 / 71; Pulse 62; Resp 16; Pulse Ox 99% on R/A; aj 15:53 BP 114 / 58; Pulse 57; Resp 16; Pulse Ox 98% on R/A; aj 17:25 BP 144 / 86; Pulse 66; Resp 18; Pulse Ox 98% on R/A; aj 18:35 BP 135 / 82; Pulse 67; Resp 18; Pulse Ox 99% on R/A; aj 12:36 Body Mass Index 27.46 (74.84 kg, 165.10 cm) hb ED Course: 12:32 Patient arrived in ED. cl3 12:32 Malina Greenwood DO is Private Physician. cl3 12:36 Triage completed. hb 12:36 Arm band placed on. hb 12:41 Lalo Walter PA is PHCP. cp 12:41 Guanaco Mccall MD is Attending Physician. cp 12:59 Sahara Mackay RN is Primary Nurse. aj 12:59 Initial lab(s) drawn, by id, sent to lab. Inserted saline lock: 18 gauge in right aa5 antecubital area, using aseptic technique. Blood collected. 13:11 Patient has correct armband on for positive identification. aj 13:17 EKG done, by solar fabrication technician. reviewed by Lalo VILLATORO. at1 14:32 CT Stone Protocol In Process Unspecified. EDMS 18:11 Malina Greenwood DO is Referral Physician. cp 18:35 No provider procedures requiring assistance completed. IV discontinued, intact, aj bleeding controlled, No redness/swelling at site. Pressure dressing applied. Administered Medications: 13:11 Drug: Zofran 4 mg Route: IVP; Site: right antecubital; aj 16:30 Follow up: Response: No adverse reaction bp 13:11 Drug: fentaNYL (PF) 25 mcg Route: IVP; Site: right antecubital; aj 16:30 Follow up: Response: No adverse reaction bp 14:36 Drug: fentaNYL (PF) 25 mcg Route: IVP; Site: right antecubital; aj 16:30 Follow up: Response: No adverse reaction bp 15:20 Drug: Decadron - Dexamethasone 10 mg Route: IVP; Site: right antecubital; bp 16:30 Follow up: Response: No adverse reaction bp 15:20 Drug: Diazepam 2 mg Route: IVP; Site: right antecubital; bp 16:30 Follow up: Response: No adverse reaction bp 16:39 Drug: NS 0.9% 250 ml Route: IV; Rate: bolus; Site: right antecubital; aj 18:36 Follow up: Response: No adverse reaction; IV Status: Completed infusion; IV Intake: aj 250ml Intake: 18:36 IV: 250ml; Total: 250ml. aj Outcome: 18:12 Discharge ordered by MD. cp 18:35 Discharged to home via wheelchair, with family. aj 18:35 Condition: good 18:35 Discharge instructions given to patient, Instructed on discharge instructions, follow up and referral plans. medication usage, Demonstrated understanding of instructions, follow-up care, medications, Prescriptions given X 1. 18:37 Patient left the ED. aj Signatures: Dispatcher [employer] Sahara Thomas RN RN aj Calderon, Audri RN RN aa5 Sahara Funes, metal bumper EKG Tat1 Lalo Walter PA PA cp Baxter, Heather, RN RN hb Peltier, Brian, RN RN bp Lewis, Charde cl3
[2019-01-04 18:44] VITALS: TEMP 99.4
[2019-01-04 18:51] VITALS: BP 135/82; O2SAT 99
--- NOTE | 2019-01-05 06:49 | EKG ---
Test Date: 2019-01-04 Test Time: 13:12:03 Master Cosmetologist: ROXANNE MEASUREMENT RESULTS: Intervals: Rate: 70 RI: 170 QRSD: 86 QT: 372 QTc: 401 [place]: P: 4 RI: 170 QRS: 25 T: 35 INTERPRETIVE STATEMENTS: Normal sinus rhythm Normal ECG Compared to ECG 07/03/2018 11:49:20 No significant changes Electronically Signed On 01-05-19 06:46:16 CDT by Alejandro Urrutia
== END 2019-01-04 18:37 | disposition home or self-care (01) ==
LOC: ER 12:30
DX: K40.20 Bilateral inguinal hernia, without obstruction or gangrene, not specified as recurrent (principal); M54.5 Low back pain; Z88.5 Allergy status to narcotic agent
CPT/HCPCS: 96365; 93005; 85025; 80048; 36415; 80076; 83690; 76377; 74176; 96375; 99284; 96366; J3360; J3010 ×2; J1100; J7030; J2405

== ENCOUNTER 2020-02-12 17:40 | Observation (INO) | payer MEDICARE, OTHER ==
--- OUTSIDE RECORDS SUMMARY | 2020-02-12 17:43 | XMS REPORT | Clinical Summary ---
:1945 Author Organization [facility] Address [address] [place] [address] Care Team Providers Name Role Phone Malina Greenwood DO Primary Care Provider Allergies Active Allergy Reactions Severity Noted Date Comments Morphine Rash Low 07/11/2019 chills Medications Medication Sig Dispensed Refills Start Date End Date Status cyclobenzaprine Take 5 mg by 0 05/27/2019 Active (FLEXERIL) 5 mg tablet mouth. pantoprazole (PROTONIX) Take 40 mg by 0 07/04/2019 Active 40 MG EC tablet mouth daily. doxazosin (CARDURA) 2 MG Take 2 mg by 0 Active tablet mouth nightly. gabapentin (NEURONTIN) Take 600 mg by 0 Active 600 mg tablet mouth 2 (two) times a day. lisinopril (PRINIVIL) 5 Take 5 mg by 0 Active mg tablet mouth daily. HYDROcodone-acetaminophen Take 1 tablet 0 09/11/2019 Active (NORCO) 10-325 mg per by mouth. tablet Active Problems Problem Noted Date Right arm weakness 11/01/2019 Traumatic brain injury with loss of consciousness 10/04 Involuntary jerky movements 11/01/2019 Encounters Date Type Specialty Care Team Description 12/16/2019 Telephone Neurology Maria G Thurman MA 11/21/2019 Hospital Encounter Neurology Shoaib Linares ry bette Zendejas MD movements 11/21/2019 Hospital Encounter Radiology Vijay, Right arm weakness; MD Cristiana Traumatic brain injury with loss of consciousness, sequela (HCC) 11/21/2019 Hospital Encounter Radiology Vijay, Right arm weakness; MD Cristiana Traumatic brain injury with loss of consciousness, sequela (HCC); Involuntary bharat ky movements 11/21/2019 Travel 11/15/2019 Travel 11/13/2019 Travel 11/04/2019 Travel 11/01/2019 Office Visit Neurology Vijay, Right arm weakn ess (Primary Dx); MD Cristiana Traumatic brain injury with loss of consciousness, sequela (HCC); Involuntary bharat ky movements 11/01/2019 Travel 09/19/2019 Telephone Orthopedic Surgery Luke Contractu re of hand Irvin Mccullough MD 09/16/2019 Telephone Orthopedic Surgery Sally Prakash MA 08/05/2019 Office Visit Orthopedic Surgery Luke, Cubital t unnel syndrome on right (Primary Dx); Irvin Mcclulough MD Stiffness of right hand joint 07/18/2019 Procedure visit Neurology Luke, Contracture of hand joint, right; Irvin Mccullough MD Nerve entrapment; Vijay, Carpal tunnel s yndrome, right upper limb; MD Cristiana Lesion of ulnar nerve, right upper limb; Right hand pain 07/11/2019 Office Visit Orthopedic Surgery Luke Contractu re of hand joint, right (Primary Dx); Irvin Mccullough MD Nerve entrap ment 07/10/2019 Orders Only Orthopedic Surgery Dwain, Pain of r ight hand AGUEDA Zavala (Primary Dx) after 02/11/2019 Family History Medical History Relation Name Comments Liver disease Father Cesar Cancer Sister Sandy cohen Relation Name Status Comments Father Tejarino Sister Sandy cohen Social History Tobacco Use Types Packs/Day Years Used Date Former Smoker 0 0 Smokeless Tobacco: Never Used Comments: Quit 15 yrs ago Alcohol Use Drinks/Week oz/Week Comments Yes seldom Sex Assigned at Date Recorded Not on file Job Start Date Occupation Industry Not on file Not on file Not on file Travel History Travel Start Travel End No recent travel history available. 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 MRI BRAIN WO Routine 11/21/2019 9:57 AM Right arm we akness Results for this CONTRAST CDT Traumatic brain procedure ar e in injury with loss of the resu lts consciousness, section. sequela (HCC) Involuntary jerky movements MRI CERVICAL SPINE Routine 11/21/2019 9:40 AM Right arm weakness Results for this WO CONTRAST CDT Traumatic brain procedure ar e in injury with loss of the resu lts consciousness, section. sequela (HCC) XR HAND 3+ VW RIGHT Routine 07/11/2019 10:32 AM Pain of right hand Results for this [employer]CH[employer]IAN procedure are i n the results section. after 02/11/2019 Results Outpatient EEG (11/21/2019 11:06 AM CDT) Impressions Performed At This is a normal electroencephalogram. N o epileptiform activity is seen. Cristiana Linares MD Narrative Performed At This result has an attachment that is no t available. REFERRING PHYSICIAN:Cristiana Linares MD INTRODUCTION: The patient is a 34-year-old gentleman with history of right leg shaking.EEG was performed to evaluate for seizures or other focal abnormalities. TECHNIQUE: This is a routine electroencephalogram recorded using the International 10/20 electrode placement system. The EEG is technical ly adequate for interpretation. FINDINGS: There is an occipital dominant rhythm of 9Hz, which is symmetrical and well sustained with eye closure. With the onset of erik wsiness, there is mild attenuation and slowing of the background rhythm. During sleep, there are vertex waves and sleep spindles present, which are symmetrical. No epileptiform discharges, focal or lateralizing abnorma lities are seen. Photic stimulation was performed with no abnormalities elicited. MRI Brain Wo Contrast (11/21/2019 9:57 AM CDT) Specimen Narrative Performed At EXAMINATION: MRI BRAIN WO CONTRAST [facility] MRI BRAIN WITHOUT CONTRAST: CLINICAL HISTORY: Syncope and right arm weakness. Hi story of traumatic brain injury COMPARISON: None available. TECHNIQUE: Multiplanar multisequence images were obt ained through the brain without intravenous contrast. FINDINGS: The ventricles, sulci and CSF-containing spaces are no rmal size and configuration for the patient's age. Foci of increased signal intensity on T2 and FLAIR sequences are seen within the supraten torial white matter. No other macrostructural abnormalities are noted in th e cerebral hemispheres, basal ganglia, brainstem or cerebellum. There is no diffusion signal abnormality to suggest ac daniel ischemia. There is no evidence of hemorrhage, focal mass, mass effect or extra-axial collection. The major arteries and dural sinuses are patent. Although this examination is not optimized for the ladi la, pituitary is grossly normal in appearance. The craniovertebral junction and visualized portion of upper cord are unremarkable. Bilateral orbits are unremarkable; there is no evidenc e of mass of inflammatory changes seen. The visualized parts of the upper neck, skull base and face are normal. Diffuse mucosal thickening of the parana rasta sinuses. IMPRESSION: 1. Negative for acute intracranial abnormality, mass, hemorrhage, extra-axial fluid collection or hydrocep halus. 2. Foci of increased signal intensity on T2 and FLAIR seen within the supratentorial white matter. This is a nonspecific fin dings most likely represents chronic microvascular ischemi c changes. 3. Diffuse mucosal thickening of the paranasal sinuses suggestive for sinusitis. [id number] Procedure Note Hm Interface, Radiology Results Incoming - 11/21/2019 10:27 AM CDT EXAMINATION: MRI BRAIN WO CONTRAST MRI BRAIN WITHOUT CONTRAST: CLINICAL HISTORY: Syncope and right arm weakness. History of traumatic brain injury COMPARISON: None available. TECHNIQUE: Multiplanar multisequence im ages were obtained through the brain without intravenous contrast. FINDINGS: The ventricles, sulci and CSF-containing spaces are normal size and configuration for the patient's age. Foci of increased signal intensity on T2 and FLAIR sequences are seen within the supratentorial white matter. No other macrostructural abnormalities a re noted in the cerebral hemispheres, basal ganglia, brainstem or cerebellum. There is no diffusion signal abnormality to suggest acute ischemia. There is no evidence of hemorrhage, focal mass, mass effect or extra-axial collection. The major arteries and dural sinuses are patent. Although this examination is not optimiz ed for the sella, pituitary is grossly normal in appearance. The craniovertebral junction and visuali zed portion of upper cord are unremarkable. Bilateral orbits are unremarkable; there is no evidence of mass of inflammatory changes seen. The visualized parts of the upper neck, skull base and face are normal. Diffuse mucosal thickening of the paranasal sinuses. IMPRESSION: 1. Negative for acute intracranial abnor mality, mass, hemorrhage, extra-axial fluid collection or hydrocephalus. 2. Foci of increased signal intensity on T2 and FLAIR seen within the supratentorial white matter. This is a nonspecific findings most likely represents chronic microvascular ischemic changes. 3. Diffuse mucosal thickening of the par anasal sinuses suggestive for sinusitis. [id number] Performing Organization Address City/State/Zipcode Phone Number [facility] [address] [place] [address] MRI Cervical Spine Wo Contrast (11/21/2019 9:40 AM CDT) Specimen Narrative Performed At EXAMINATION: MRI CERVICAL SPINE WO CON TRAST [facility] CLINICAL HISTORY: Right arm and leg we akness. COMPARISON: None. TECHNIQUE: Multiplanar multisequence images were obt ained through the cervical spine including the following pulse sequences , sagittal T2, sagittal STIR, sagittal T1, axial T2 FSE and T2 gradient echo. DISCUSSION: There is straightening of cervical lordosis. 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 Status post posterio r cervical decompression and fusion. Stability sacha fact associated to surgical hardware slightly limiting i nterpretation. There is long segment area of increased signal intensi ty on T2/STIR seen within the central cervical cord at C3-C 5. The visualized posterior fossa and craniocervical junc tion are unremarkable. There is no evidence of intra or extradural mass or co llection. There is atrophy of posterior paraspinal muscles. Evaluation of individual intervertebral disc demonstra te the following findings: - C1-C2: Degenerative thickening of tectorial membrane and atlantodental ligamental apparatus there is chronic erosions of the odontoid process of C2 most likely degenerative. - C2-C3: Facet arthropathy. No significant posterior d isc disease, spinal canal or neural foraminal stenosi s. - C3-C4: Mild facet arthropathy. Otherwi se, unremarkable. - C4-C5: Mild facet arthropathy. Otherwi se, unremarkable. - C5-C6: Mild uncovertebral and facet arthropathy. Oth erwise, unremarkable. - C6-C7: Mild facet arthropathy. Otherwi se, unremarkable. - C7-T1: Shallow posterior disc protrusion remodeling the ventral thecal sac. Otherwise, unremarkable. IMPRESSION: 1. 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 2. Postsurgical changes seen within the cervical spine associated posterior decompression and fusion. Susceptibility art ifact used to surgical hardware slightly limiting inte rpretation. 3. There is long segment area of increased signal inte nsity on T2/STIR seen within the central cervical cord at C3-C5 suggest golden for myelomalacia/chronic compressive myelopa thy. 4. Multilevel uncovertebral and facet arthropathy resu lting in mild neural foraminal stenosis. The central c anal appears patent. 5. There is atrophy of posterior paraspi nal muscles. [id number] Procedure Note Hm Interface, Radiology Results - 11/21/2019 11:52 AM CDT EXAMINATION: MRI CERVICAL SPINE WO CONTRAST CLINICAL HISTORY: Right arm and leg wea kness. COMPARISON: None. TECHNIQUE: Multiplanar multisequence im ages were obtained through the cervical spine including the following pulse sequences, sagittal T2, sagittal STIR, sagittal T1, axial T2 FSE and T2 gradient echo. DISCUSSION: There is straightening of cervical lordo sis. 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 Status post posterior cervical decompression and fusion. Stability sacha fact associated to surgical hardware slightly limiting i nterpretation. There is long segment area of increased signal intensity on T2/STIR seen within the central cervical cord at C3-C5. The visualized posterior fossa and crani ocervical junction are unremarkable. There is no evidence of intra or extradu ral mass or collection. There is atrophy of posterior paraspinal muscles. Evaluation of individual intervertebral disc demonstrate the following findings: - C1-C2: Degenerative thickening of tect orial membrane and atlantodental ligamental apparatus there is chronic erosions of the odontoid process of C2 most likely degenerative. - C2-C3: Facet arthropathy. No significa nt posterior disc disease, spinal canal or neural foraminal stenosis. - C3-C4: Mild facet arthropathy. Otherwi se, unremarkable. - C4-C5: Mild facet arthropathy. Otherwi se, unremarkable. - C5-C6: Mild uncovertebral and facet ar thropathy. Otherwise, unremarkable. - C6-C7: Mild facet arthropathy. Otherwi se, unremarkable. - C7-T1: Shallow posterior disc protrusi on remodeling the ventral thecal sac. Otherwise, unremarkable. IMPRESSION: 1. 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 2. Postsurgical changes seen within the cervical spine associated posterior decompression and fusion. Susceptibility artifact used to surgical hardware slightly limiting interpretation. 3. There is long segment area of increas ed signal intensity on T2/STIR seen within the central cervical cord at C3-C5 suggestive for myelomalacia/chronic compressive myelopathy. 4. Multilevel uncovertebral and facet ar thropathy resulting in mild neural foraminal stenosis. The central canal appears patent. 5. There is atrophy of posterior paraspi nal muscles. 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 [email or web address] Xrays: The x-rays were ordered and personally reviewed by me. 

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
--- OUTSIDE RECORDS SUMMARY | 2020-02-12 17:43 | XMS REPORT | Clinical Summary ---
:1945 Author Organization [facility] Address [address] [place] [address] Care Team Providers Name Role Phone Casey Greenwood Primary Care Provider Allergies No Known [...] 0 Active tablet mouth nightly. Active Problems Problem Noted Date BPH (benign prostatic hyperplasia) 07/05/2018 Social History Tobacco Use Types Packs/Day Years [...] six or more drinks on one occasion? No t asked Sex Assigned at Date Recorded Not on file Job Start Date Occupation Industry Not on file Not on file Not on file Travel History Travel Start Travel End No recent travel history available. Last Filed Vital Signs Not on file Plan of Treatment Not on file Results Not on fileafter 02/11/2019 Insurance Payer Benefit Plan / Group Subscriber ID Type Phone A ddress [facility] MEDICARE AARP/MEDICARE COMPLETE xxxxxxxxx MGD CARE Advance Directives For more information, please contact:[address] [place], [place] [phone] Code Status Date Activated Date Inactivated Comments Full Code 07/05/2018 10:49 AM This code status was determined by: Patient
--- NOTE | 2020-02-12 18:12 | RAD REPORT ---
EXAM DESCRIPTION: CT - Ct Stroke Brain Wo Cont - 02/12/2020 5:54 pm CLINICAL HISTORY: LEFT ARM NUMBNESS Headache, drowsiness COMPARISON: Head Brain Wo Cont dated 07/03/2018; HEAD BRAIN W O CONTRAST dated 01/07/2012 TECHNIQUE: All CT scans are performed using dose optimization technique as appropriate and may inclu de automated exposure control or mA/KV adjustment according to patient size. FINDINGS: No intracranial hemorrhage, hydrocephalus or extra-axial fluid collection.Moderate brain a trophy is seen. Mild periventricular chronic microvascular ischemic changes. No areas of brain edema or evidence of midline shift. Mild mucosal thickening is present involving the ethmoid sphenoid sinuses. The calvarium is intact. IMPRESSION: No acute intracranial abnormality. The findings were discussed with Dr. Lopes On 02/12/2020 at 6:05 p.m. by telephone.
[2020-02-12 18:21] LABS: Absolute Lymphocytes (CBC) 2.3 K/uL (0.7-4.9); Basophils % 1.3 % (0-1.3); Hematocrit 39.3 % (39.6-49.0); Lymphocytes % 24.8 % (15.3-44.8); MPV 8.8 fL (7.6-11.3); RBC Red Blood Cell Count 4.77 M/uL (4.33-5.43)
[2020-02-12 18:25] LABS: Protime INR 0.99
--- NOTE | 2020-02-12 18:29 | EDPHYS ---
Physician Documentation [facility] Name: Jaswant Funes Age: 75 yrs Sex: Male : 1945 Arrival Date: 02/12/2020 Time: 17:41 Bed 20 Private MD: ED Physician Julio C Lopes HPI: 02/11 18:05 This 75 yrs old Male presents to ER via Unassigned with complaints of Numbness rn Of Arm - leg. 18:05 The patient or guardian complains of weakness. rn 18:05 The patient presents to the emergency department with weakness of the left upper rn extremity, left lower extremity, a speech or higher order brain function problem, paresthesias of the left lower extremity, left upper extremity. Severity of symptoms: At their worst the symptoms were moderate in the emergency department the symptoms have improved. Current symptoms: weakness LUE/LLE. The patient has not experienced similar symptoms in the past. Reports around 1330, noticed left sided weakness and numbness, assoc with difficulty speaking and dizziness, speaking has improved, but still feels weak on left side, requiring help to move. Numbness improving as well. No recent head injury or surgery. Did just come from eye doctor and received "eye injection" of unknown medication. No acute change in vision. . Historical: - Allergies: 18:07 Morphine; ca1 - PMHx: 18:07 Bat Bite - left hand; BPH; GERD; Hypertension; Rattlesnake Bite - right hand; ca1 - PSHx: 18:07 R shoulder Surgery; ca1 - Immunization history:: Adult Immunizations up to date. - Social history:: Smoking status: Patient/guardian denies using tobacco, the patient reports quitting approximately 15 years ago. - Family history:: not pertinent. - Hospitalizations: : No recent hospitalization is reported. ROS: 18:20 Constitutional: Negative for fever, chills, and weight loss, Eyes: Negative for injury, rn pain, redness, and discharge, Neck: Negative for injury, pain, and swelling, Cardiovascular: Negative for palpitations, and edema, Respiratory: Negative for cough, wheezing, and pleuritic chest pain, Abdomen/GI: Negative for abdominal pain, nausea, vomiting, diarrhea, and constipation, MS/Extremity: Negative for injury and deformity, Skin: Negative for injury, rash, and discoloration, Neuro: Negative for seizure Exam: 18:20 Constitutional: Overweight male, requires assistance to get out of wheelchair rn Head/Face: Normocephalic, atraumatic. Eyes: Pupils equal round and reactive to light, extra-ocular motions intact. Cardiovascular: Regular rate and rhythm . No pulse deficits. Respiratory: Mild tachypnea, no retractions Abdomen/GI: soft, non-tender Skin: Warm, dry MS/ Extremity: Pulses equal, no cyanosis. Neuro: Awake and alert, GCS 15. Vital Signs: 17:50 BP 136 / 80; Pulse 82; Resp 16 S; Temp 97.5(TE); Pulse Ox 100% on R/A; Weight 84.82 kg ca1 (R); Height 5 ft. 5 in. (165.10 cm) (R); 18:30 BP 117 / 69; Pulse 76; Resp 16; Pulse Ox 99% on R/A; jr10 19:09 BP 120 / 70; Pulse 72; Resp 16; Pulse Ox 98% on R/A; Pain 0/10; jr10 21:00 BP 106 / 71; Pulse 54; Resp 11; Pulse Ox 97% on R/A; vc 21:48 BP 85 / 64; Pulse 80; Resp 20; Pulse Ox 99% on R/A; vc 21:51 BP 115 / 67; Pulse 62; Resp 12; Pulse Ox 99% on R/A; vc 17:50 Body Mass Index 31.12 (84.82 kg, 165.10 cm) ca1 NIH Stroke Scale Scores: 18:05 NIHSS Score: 1 jr10 18:19 NIHSS Score: 4 rn MDM: 17:47 Patient medically screened. rn 18:20 ED course: Consulted with Dr. correa at 1808, states outside of window, and does not rn recommend TPA. Requests standard stroke w/u, aspirin, folic acid, and admission for stroke w/u. Had long discussion with patient, and understands that outside TPA window and not indicated at this time, patient had gone to eye doctor and didn't want to miss appt, then wanted his family to get him and bring him, so presented late. . 18:27 Data reviewed: vital signs, nurses notes, radiologic studies, CT scan, and as a result, rn I will admit patient. Counseling: I had a detailed discussion with the patient and/or guardian regarding: the historical points, exam findings, and any diagnostic results supporting the discharge/admit diagnosis, radiology results, the need for further work-up and treatment in the hospital. Admission orders: after a detailed discussion of the patient's condition and case, the admit orders are written by me. 02/11 18:04 Order name: Basic Metabolic Panel; Complete Time: 18:43 rn 02/11 18:04 Order name: CBC with Diff; Complete Time: 18:43 rn 02/11 18:04 Order name: Protime (+inr); Complete Time: 18:43 rn 02/11 18:04 Order name: Ptt, Activated; Complete Time: 18:43 rn 02/11 18:15 Order name: Glucose, Ancillary Testing; Complete Time: 18:24 EDNM 02/11 18:19 Order name: Troponin (emerg Dept Use Only) rn 02/11 17:51 Order name: Ct Stroke Brain Wo Cont; Complete Time: 18:24 EDNM 02/11 18:04 Order name: Stroke CXR 1 View rn 02/11 18:04 Order name: EKG; Complete Time: 18:04 rn 02/11 18:04 Order name: Accucheck; Complete Time: 18:18 rn 02/11 19:20 Order name: CONS Physician Consult EDNM 02/11 18:04 Order name: Cardiac monitoring; Complete Time: 18:18 rn 02/11 18:04 Order name: EKG - Nurse/Tech; Complete Time: 18:18 rn 02/11 18:04 Order name: IV Saline Lock; Complete Time: 18:18 rn 02/11 18:04 Order name: Labs collected and sent; Complete Time: 18:18 rn 02/11 18:04 Order name: NPO; Complete Time: 18:18 rn 02/11 18:04 Order name: O2 Per Protocol; Complete Time: 18:18 rn 02/11 18:04 Order name: O2 Sat Monitoring; Complete Time: 18:18 rn 02/11 18:04 Order name: Stroke Swallow Screen; Complete Time: 18:18 rn Administered Medications: 18:30 Drug: Aspirin Chewable Tablet 324 mg Route: PO; jr10 19:27 Follow up: Response: No adverse reaction jr10 18:30 Drug: foLIC Acid 1 mg Route: IVPB; Site: right antecubital; jr10 19:27 Follow up: Response: No adverse reaction; IV Status: Completed infusion 10 Point of Care Testing: Blood Glucose: 18:03 Blood Glucose: 88 mg/dL; tw2 Ranges: Critical Glucose Levels:Adult <50 mg/dl or >400 mg/dl <40 mg/dl or >180 mg/dl Disposition: 02/12/20 18:28 Hospitalization ordered by Chicho Lowe for Inpatient Admission. Preliminary diagnosis are Weakness, Dysarthria following cerebral infarction, Paresthesia of skin. - Bed requested for Telemetry/MedSurg (Inpatient). - Status is Inpatient Admission. vc - Condition is Stable. - Problem is new. - Symptoms are unchanged. NIH Stroke Scale - NIH Stroke Score Date: 02/12/2020 Time: 18:05 Total Score = 1 1a. Level of Consciousness (LOC) - 0(Alert) 1b. Level of Consciousness (LOC) (Year \\T\\ Age) - 0(Both) 1c. LOC Commands (Open \\T\\ Closes Eyes/Spot Facer) - 0(Both) 2. Best Gaze (Lateral Gaze Paresis) - 0(Normal) 3. Visual Field Loss - 0(No visual loss) 4. Facial Palsy - 0(Normal) 5a. Left Arm: Motor (10-second hold) - 0(No drift) 5b. Right Arm: Motor (10-second hold) - 0(No drift) 6a. Left Leg: Motor (5-second hold - always test supine) - 0(No drift) 6b. Right Leg: Motor (5-second hold - always test supine) - 0(No drift) 7. Limb Ataxia (finger/nose \\T\\ heel/villa - test with eyes open) - 0(Absent) 8. Sensory Loss (pinprick arms/legs/face) - 0(Normal) 9. Best Language: Aphasia (description/naming/reading) - 1(Mild to moderate aphasia) 10. Dysarthria (speech clarity - read or repeat words) - 0(Normal) 11. Extinction and Inattention (visual/tactile/auditory/spatial/personal) - 0(No abnormality) Initials: jr10 NIH Stroke Scale - NIH Stroke Score Date: 02/12/2020 Time: 18:19 Total Score = 4 1a. Level of Consciousness (LOC) - 0(Alert) 1b. Level of Consciousness (LOC) (Year \\T\\ Age) - 0(Both) 1c. LOC Commands (Open \\T\\ Closes Eyes/Spot Facer) - 0(Both) 2. Best Gaze (Lateral Gaze Paresis) - 0(Normal) 3. Visual Field Loss - 0(No visual loss) 4. Facial Palsy - 0(Normal) 5a. Left Arm: Motor (10-second hold) - 1(Drift) 5b. Right Arm: Motor (10-second hold) - 0(No drift) 6a. Left Leg: Motor (5-second hold - always test supine) - 1(Drift) 6b. Right Leg: Motor (5-second hold - always test supine) - 0(No drift) 7. Limb Ataxia (finger/nose \\T\\ heel/villa - test with eyes open) - 0(Absent) 8. Sensory Loss (pinprick arms/legs/face) - 1(Mild to moderate loss) 9. Best Language: Aphasia (description/naming/reading) - 0(No aphasia) 10. Dysarthria (speech clarity - read or repeat words) - 1(Mild to Moderate) 11. Extinction and Inattention (visual/tactile/auditory/spatial/personal) - 0(No abnormality) Initials: rn Signatures: Dispatcher [employer] EDNM Julio C Lopes MD MD rn Lasagna, Tonya, RN RN tl1 Arianna Brink, RN RN Katelin Casper, RN Allison Covington vc, RN RN jr10 Corrections: (The following items were deleted from the chart) 18:24 18:20 Constitutional: Overweight male, requires assistance to get out of rn wheelchair Head/Face: Normocephalic, atraumatic. Eyes: Pupils equal round and reactive to light, extra-ocular motions intact. Cardiovascular: Regular rate and rhythm . No pulse deficits. Respiratory: Mild tachypnea, no retractions Abdomen/GI: soft, non-tender Skin: Warm, dry MS/ Extremity: Pulses equal, no cyanosis. Neuro: Awake and alert, GCS 15. rn 18:38 18:04 CT-STROKE BRAIN W/O CONTRAST+CT.RAD.BRZ ordered. EDNM EDMS 21:37 18:28 Hospitalization Ordered by Chicho Lowe for Inpatient Admission. tl1 Preliminary diagnosis is Weakness; Dysarthria following cerebral infarction; Paresthesia of skin. Bed requested for Telemetry/MedSurg (Inpatient). Status is Inpatient Admission. Condition is Stable. Problem is new. Symptoms are unchanged. rn 23:09 21:37 02/12/2020 18:28 Hospitalization Ordered by Chicho Lowe for Inpatient vc Admission. Preliminary diagnosis is Weakness; Dysarthria following cerebral infarction; Paresthesia of skin. Bed requested for Telemetry/MedSurg (Inpatient). Status is Inpatient Admission. Condition is Stable. Problem is new. Symptoms are unchanged. tl1
--- NOTE | 2020-02-12 18:29 | ER ---
Nurse's Notes [facility] Name: Jaswant Funes Age: 75 yrs Sex: Male : 1945 Arrival Date: 02/12/2020 Time: 17:41 Bed 20 Private MD: Diagnosis: Weakness;Dysarthria following cerebral infarction;Paresthesia of skin Presentation: 02/11 17:50 Chief complaint: Patient states: Around 1330 this afternoon started feeling dizziness, ca1 blurring of vision, headache, numbness of L arm and numbness of L leg. Still complains of numbness L arm at this time, L sided headache and L sided neck pain. Denies HX of stroke. Pt got dizzy on CT when sitting up after laying flat. A\T\Ox4. Coronavirus screen: Client denies travel out of the [place] in the last 14 days. At this time, the client does not indicate any symptoms associated with coronavirus-19. Ebola Screen: Patient negative for fever greater than or equal to 101.5 degrees Fahrenheit, and additional compatible Ebola Virus Disease symptoms Patient denies exposure to infectious person. Patient denies travel to an Ebola-affected area in the 21 days before illness onset. No symptoms or risks identified at this time. Initial Sepsis Screen: Does the patient meet any 2 criteria? No. Patient's initial sepsis screen is negative. Does the patient have a suspected source of infection? No. Patient's initial sepsis screen is negative. Risk Assessment: Do you want to hurt yourself or someone else? Patient reports no desire to harm self or others. Onset of symptoms was February 12, 2020 at 13:30. 17:50 Method Of Arrival: Wheelchair ca1 17:50 Acuity: TODD 2 ca1 Historical: - Allergies: 18:07 Morphine; ca1 - PMHx: 18:07 Bat Bite - left hand; BPH; GERD; Hypertension; Rattlesnake Bite - right hand; ca1 - PSHx: 18:07 R shoulder Surgery; ca1 - Immunization history:: Adult Immunizations up to date. - Social history:: Smoking status: Patient/guardian denies using tobacco, the patient reports quitting approximately 15 years ago. - Family history:: not pertinent. - Hospitalizations: : No recent hospitalization is reported. Screenin:05 Abuse screen: Denies threats or abuse. Denies injuries from another. Nutritional jr10 screening: No deficits noted. Tuberculosis screening: No symptoms or risk factors identified. VAN Screening: Arm Drift: Patient shows no arm weakness. Patient is VAN negative. Fall Risk No fall in past 12 months (0 pts). No secondary diagnosis (0 pts). IV access (20 points). Ambulatory Aid- None/Bed Rest/Nurse Assist (0 pts). Gait- Weak (10 pts.). Mental Status- Oriented to own ability (0 pts). Assessment: 17:47 Reassessment: Pt to CT. ca1 17:55 VAN Scoring: Arm Drift: Patients demonstrates NO arm weakness. Patient is VAN Negative. ca1 18:05 Patient has been NPO before screening. The patient is alert, and able to follow jr10 commands. The patient does not exhibit slurred or garbled speech. The patient is not exhibiting difficulty speaking. The patient does not exhibit difficulty understanding words. The patient is able to swallow own secretions with no drooling or need for suction. Patient tolerated one teaspoon of water. No drooling, immediate coughing, gurgling, or clearing of the throat was noted. The patient tolerated 90mL of water. No drooling, immediate coughing, gurgling, or clearing of the throat was noted. The patient passed the bedside swallow screening. Oral medications may be given as ordered. Contact Physician for further diet orders. Provider notified of bedside swallow screening results: Julio C Lopes MD. T-PA (Activase) Screening: Contraindications: Intracranial hemorrhage and its risk factor and suspicion of subarachnoid bleed: Yes. Patient reports onset of signs and symptoms of stroke greater than 6 hours ago: No. General: Appears in no apparent distress. Behavior is anxious. Pain: Complains of pain in chest Pain does not radiate. Pain currently is 8 out of 10 on a pain scale. Quality of pain is described as heavy, pressure, Pain began at 1330 Is continuous, Noted to be grimacing, moaning. Neuro: Level of Consciousness is awake, alert, obeys commands, Oriented to person, place, time, situation, Appropriate for age Home Appliance Technician are equal bilaterally Moves all extremities. Gait is steady, Speech mild stutter noted. Facial symmetry appears normal, Pupils are Pupil Size: right 4mm, left 2mm; this is pt baseline; hx of head injury 7 years ago Intact Reports dizziness, numbness paresthesias weakness that started at approx 1330 this afternoon; states that he was going to get an injection in his eye when he started to experience numbness and weakness to his left side extremities with difficulty in speech. Pt reports hx of head injury with head bleed approx 7 years ago, denies the use of blood thinners currently; denies any hx of CVA, TIA, ND; pt denies numbness/tingling to affected extremities at present, does continue to report weakness; denies NG, no aphasia noted however pt does have a mild stutter which he reports is not normal for him. Cardiovascular: Reports chest pain, shortness of breath, Patient's skin is warm and dry. Pulses are all present. Edema is 2+ to left ankle, left foot, right ankle and right foot Rhythm is sinus rhythm. Respiratory: Reports shortness of breath on exertion cough that is dry, Airway is patent Respiratory effort is even, unlabored, Respiratory pattern is symmetrical, tachypnea Breath sounds are clear bilaterally. GI: No deficits noted. No signs and/or symptoms were reported involving the gastrointestinal system. Patient currently denies nausea, vomiting. : No deficits noted. No signs and/or symptoms were reported regarding the genitourinary system. EENT: No deficits noted. No signs and/or symptoms were reported regarding the EENT system. Derm: No deficits noted. No signs and/or symptoms reported regarding the dermatologic system. Musculoskeletal: No deficits noted. Reports weakness in left arm and left leg. 18:34 Reassessment: Pt family contact information: Sandy Almonte (daughter): [phone]. jr10 19:00 Reassessment: Assumed care from LUIS Cooper. vc 20:00 Reassessment: Patient appears in no apparent distress at this time. Patient and/or vc family updated on plan of care and expected duration. Pain level reassessed. Patient is alert, oriented x 3, equal unlabored respirations, skin warm/dry/pink. 21:00 Reassessment: Patient appears in no apparent distress at this time. Patient and/or vc family updated on plan of care and expected duration. Pain level reassessed. Patient is alert, oriented x 3, equal unlabored respirations, skin warm/dry/pink. Patient states symptoms have improved. 21:52 Reassessment: Patient appears in no apparent distress at this time. Patient and/or vc family updated on plan of care and expected duration. Pain level reassessed. Patient is alert, oriented x 3, equal unlabored respirations, skin warm/dry/pink. Patient states symptoms have improved. 22:00 Reassessment: Patient and/or family updated on plan of care and expected duration. Pain vc level reassessed. Patient is alert, oriented x 3, equal unlabored respirations, skin warm/dry/pink. Patient given a sandwich and some water, patient able to eat and drink without coughing. 23:06 Reassessment: Patient appears in no apparent distress at this time. Patient and/or vc family updated on plan of care and expected duration. Pain level reassessed. Patient is alert, oriented x 3, equal unlabored respirations, skin warm/dry/pink. Vital Signs: 17:50 BP 136 / 80; Pulse 82; Resp 16 S; Temp 97.5(TE); Pulse Ox 100% on R/A; Weight 84.82 kg ca1 (R); Height 5 ft. 5 in. (165.10 cm) (R); 18:30 BP 117 / 69; Pulse 76; Resp 16; Pulse Ox 99% on R/A; jr10 19:09 BP 120 / 70; Pulse 72; Resp 16; Pulse Ox 98% on R/A; Pain 0/10; jr10 21:00 BP 106 / 71; Pulse 54; Resp 11; Pulse Ox 97% on R/A; vc 21:48 BP 85 / 64; Pulse 80; Resp 20; Pulse Ox 99% on R/A; vc 21:51 BP 115 / 67; Pulse 62; Resp 12; Pulse Ox 99% on R/A; vc 17:50 Body Mass Index 31.12 (84.82 kg, 165.10 cm) ca1 NIH Stroke Scale Scores: 18:05 NIHSS Score: 1 jr10 18:19 NIHSS Score: 4 buyer intern Course: 17:41 Patient arrived in ED. as 17:47 Julio C Lopes MD is Attending Physician. rn 17:51 Ct Stroke Brain Wo Cont In Process Unspecified. EDMS 18:05 Patient has correct armband on for positive identification. Placed in gown. Bed in low jr10 position. Call light in reach. Side rails up X2. monitor and storage bin tender on. Pulse ox on. NIBP on. 18:06 Triage completed. ca1 18:07 Arm band placed on right wrist. ca1 18:18 Allison Coleman, LUIS is Primary Nurse. jr10 18:19 No provider procedures requiring assistance completed. Inserted saline lock: 20 gauge jr10 in right antecubital area, using aseptic technique. IV is patent, is intact, with good blood return, Flushed. 18:28 Chicho Lowe is Hospitalizing Provider. rn 18:55 Stroke CXR 1 View In Process Unspecified. EDMS 19:25 Report given to LUIS Thomason. jr10 Administered Medications: 18:30 Drug: Aspirin Chewable Tablet 324 mg Route: PO; jr10 19:27 Follow up: Response: No adverse reaction jr10 18:30 Drug: foLIC Acid 1 mg Route: IVPB; Site: right antecubital; jr10 19:27 Follow up: Response: No adverse reaction; IV Status: Completed infusion jr10 Point of Care Testing: Blood Glucose: 18:03 Blood Glucose: 88 mg/dL; tw2 Ranges: Outcome: 18:28 Decision to Hospitalize by Provider. rn 23:08 Admitted to Med/surg accompanied by tech, via wheelchair, room 218, with chart, Report vc called to LUIS Rankin 23:08 Condition: stable 23:08 Instructed on the need for admit. 23:09 Patient left the ED. vc NIH Stroke Scale - NIH Stroke Score Date: 02/12/2020 Time: 18:05 Total Score = 1 1a. Level of Consciousness (LOC) - 0(Alert) 1b. Level of Consciousness (LOC) (Year \T\ Age) - 0(Both) 1c. LOC Commands (Open \T\ Closes Eyes/Travel Registered Nurse Oncology) - 0(Both) 2. Best Gaze (Lateral Gaze Paresis) - 0(Normal) 3. Visual Field Loss - 0(No visual loss) 4. Facial Palsy - 0(Normal) 5a. Left Arm: Motor (10-second hold) - 0(No drift) 5b. Right Arm: Motor (10-second hold) - 0(No drift) 6a. Left Leg: Motor (5-second hold - always test supine) - 0(No drift) 6b. Right Leg: Motor (5-second hold - always test supine) - 0(No drift) 7. Limb Ataxia (finger/nose \T\ heel/villa - test with eyes open) - 0(Absent) 8. Sensory Loss (pinprick arms/legs/face) - 0(Normal) 9. Best Language: Aphasia (description/naming/reading) - 1(Mild to moderate aphasia) 10. Dysarthria (speech clarity - read or repeat words) - 0(Normal) 11. Extinction and Inattention (visual/tactile/auditory/spatial/personal) - 0(No abnormality) Initials: marisol NIH Stroke Scale - NIH Stroke Score Date: 02/12/2020 Time: 18:19 Total Score = 4 1a. Level of Consciousness (LOC) - 0(Alert) 1b. Level of Consciousness (LOC) (Year \T\ Age) - 0(Both) 1c. LOC Commands (Open \T\ Closes Eyes/Travel Registered Nurse Oncology) - 0(Both) 2. Best Gaze (Lateral Gaze Paresis) - 0(Normal) 3. Visual Field Loss - 0(No visual loss) 4. Facial Palsy - 0(Normal) 5a. Left Arm: Motor (10-second hold) - 1(Drift) 5b. Right Arm: Motor (10-second hold) - 0(No drift) 6a. Left Leg: Motor (5-second hold - always test supine) - 1(Drift) 6b. Right Leg: Motor (5-second hold - always test supine) - 0(No drift) 7. Limb Ataxia (finger/nose \T\ heel/villa - test with eyes open) - 0(Absent) 8. Sensory Loss (pinprick arms/legs/face) - 1(Mild to moderate loss) 9. Best Language: Aphasia (description/naming/reading) - 0(No aphasia) 10. Dysarthria (speech clarity - read or repeat words) - 1(Mild to Moderate) 11. Extinction and Inattention (visual/tactile/auditory/spatial/personal) - 0(No abnormality) Initials: rn Signatures: Dispatcher [employer] Karen Rogers Roman, MD MD rn Wise, Tara RN RN tw2 Arianna Brink RN RN ca1 Katelin Huizar, RN Allison Covington vc, RN RN jr10
[2020-02-12 18:31] LABS: Potassium 4.4 mmol/L (3.5-5.1)
[2020-02-12] MEDS ORDERED: ASPIRIN 81 MG CHEWABLE TABLET ONE (18:33)
[2020-02-12] MEDS ORDERED: FOLIC ACID 5 MG/ML VIAL ONE (18:36)
--- NOTE | 2020-02-12 19:36 | RAD REPORT ---
EXAM DESCRIPTION: RAD - Chest Single View - 02/12/2020 6:56 pm CLINICAL HISTORY: weakness, numbness Chest pain. COMPARISON: Chest Pa And Lat (2 Views) dated 06/21/2018; Chest Single View dated 06/16/2017; Abdomen 1 View (KUB) dated 04/21/2016; Chest Pa And Lat (2 Views) dated 11/27/2015 FINDINGS: Portable technique limits examination quality. The lungs are grossly clear. The heart is mildly enlarged in size with a tortuous thoracic aorta. No displaced fractures. IMPRESSION: No acute intrathoracic process suspected.
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
[2020-02-12 23:31] VITALS: BMI 31.6
[2020-02-13] MEDS: HEPARIN 5000 UNIT/ML 1 ML VIAL SQ SCH ×3 (01:12→17:00)
[2020-02-13] MEDS: NA CHLORIDE 0.9% 1,000 ML IV SCH ×3 (01:12→10:46)
[2020-02-13 02:54] VITALS: O2SAT 94
[2020-02-13 05:37] LABS: Basophils % 1.1 % (0-1.3); Hematocrit 34.1 % (39.6-49.0); Lymphocytes % 27.9 % (15.3-44.8); MPV 8.8 fL (7.6-11.3); RBC Red Blood Cell Count 4.16 M/uL (4.33-5.43)
[2020-02-13 05:51] LABS: Magnesium 2.3 mg/dL (1.8-2.4)
[2020-02-13 08:03] LABS: Urine Appearance CLEAR; Urine Bilirubin NEGATIVE (NEG); Urine Blood NEGATIVE (NEG); Urine Color YELLOW; Urine Glucose NEGATIVE (NEG); Urine Protein NEGATIVE (NEG); Urine Urobilinogen 0.2 mg/dL (0.2-1.0); Urine pH 5.5 (5.0-7.0)
[2020-02-13 08:04] LABS: Urine Microscopic Reflex NO UMIC
[2020-02-13] MEDS ORDERED: ASPIRIN 81 MG CHEWABLE TABLET PO SCH (09:00)
--- NOTE | 2020-02-13 10:10 | CON ---
Date of Consultation: 02/13/2020 Reason For Consultation: TIA and second-degree AV block. History Of Present Illness: Mr. Funes is a 75-year-old Latin-Tongan male with history of gastro esophageal reflux and hypertension. He has had history of cat bite and snake bite in the past. He c cheli in with what appeared to be a CVA with left lower extremity and upper extremity numbness and weak ness that has completely resolved since admission. While he was asleep at night, he was noted to be bradycardic with a second-degree AV block and I was consulted. I noted that the block is a second-de gree Wenckebach block type 1 with no need for intervention. He is in sinus rhythm. Today, his basel ine EKG is normal. He had a brain CT that was negative. His blood work was all unremarkable except for a creatinine of 2.05. Past Medical History: As stated above. Allergies: INCLUDE MORPHINE. Medications: At home include Prilosec and Cardura. Review of Systems: Negative. Social History: Negative. Family History: Negative. Physical Examination: Vital Signs: Stable. He was in sinus rhythm, rate of 68. HEENT: Negative. Neck: Supple with no bruit, lymphadenopathy, JVD, or thyromegaly. Chest: Clear to auscultation and percussion. Cardiac: Reveals a regular rhythm and rate. No murmurs, gallops, or rubs. Abdomen: Benign. Extremities: Revealed no clubbing, cyanosis, or edema. Neurologic: He was nonfocal. Impression: 1.Second-degree atrioventricular block, type 1. This is Wenckebach block. No need for intervention . This is normal during sleep pattern. No syncope reported, no palpitations, no chest pain. 2.Renal insufficiency. 3.Transient ischemic attack. I think Nephrology, Neurology consultation may be reasonable. He has an echocardiogram and a carotid Doppler that are pending. I will discuss the case further with Dr. Baez. LIDIA/MARTÍNEZ Voice ID: [id number] Report ID: [id number]
--- NOTE | 2020-02-13 16:52 | RAD REPORT ---
EXAM DESCRIPTION: MRI - Brain Wo Cont - 02/13/2020 4:06 pm CLINICAL HISTORY: cva COMPARISON: Ct Stroke Brain Wo Cont dated 02/12/2020 TECHNIQUE: Sagittal T1-weighted images were obtained along with axial PD, heavily T2-weighted and T2 -FLAIR images. Axial DWI and ADC mapping sequences were also obtained along with coronal heavily T2-w eighted images. FINDINGS: No intracranial hemorrhage, mass or acute infarction. There is no edema or shift of midlin e structures. No extra-axial fluid collections. Ruth-matter/white matter junction is preserved. Signa l voids are seen as a normal finding in the major intracranial vessels. Patient has chronic ischemic change scattered in the cerebral white matter with a mild underlying atr ophy. Mastoid air cells are clear. Scattered sinus mucosal thickening. Basilar artery is ectatic. No aneurysm suspected. IMPRESSION: Atrophy and chronic ischemic changes are present as detailed. No acute or subacute infar ction changes.
--- NOTE | 2020-02-13 17:13 | RAD REPORT ---
EXAM DESCRIPTION: US - CP - 02/13/2020 4:37 pm CLINICAL HISTORY: cva COMPARISON: CT HEAD CSPINE MPR WO CONTRAST dated 10/13/2011 TECHNIQUE: Real-time sonographic evaluation of bilateral carotid and vertebral systems was performed . Ruth scale and Doppler interrogation were performed with waveform tracing bilaterally. FINDINGS: Normal high resistance waveforms are noted in both external carotid arteries. The common c arotid arteries and internal carotid arteries show normal low resistance waveforms. Mild plaquing changes are seen in the bulb and ICA regions of each carotid distribution. No significa nt luminal narrowing identified. Peak systolic and end diastolic velocity values and the ICA/CCA rati os are in the non-hemodynamically significant range. Dissection findings. Antegrade flow seen in both vertebral arteries. Velocity values and ratios were recorded and are retained in the patient's imaging records. IMPRESSION: Mild bilateral atherosclerotic change. No evidence of a hemodynamically significant stenosis.
[2020-02-13 18:34] VITALS: BP 176/78; TEMP 97.1
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
--- NOTE | 2020-02-14 09:26 | ECHO ---
HEIGHT: 5 ft 5 in WEIGHT: 190 lb 0 oz DATE OF STUDY: 02/13/[address]: Kalen Knox 2-DIMENSIONAL: YES M.MODE: YES DOPPLER: YES COLOR FLOW: YES TDS: NO PORTABLE: NO DEFINITY: NO BUBBLE STUDY: NO DIAGNOSIS: CEREBRAL VASCULAR ACCIDENT CARDIAC HISTORY: CATHERIZATION: SURGERY: PROSTHETIC VALVE: PACEMAKER: MEASUREMENTS (cm) DIASTOLIC (NORMALS) SYSTOLIC (NORMALS) IVSd 0.9 (0.6-1.2) LA Diam (1.9-4.0) LVEF 56% LVIDd 4.3 (3.5-5.7) LVIDs 3.1 (2.0-3.5) %FS 29% LVPWd 1.0 (0.6-1.2) Ao Diam 3.1 (2.0-3.7) 2 DIMENSIONAL ASSESSMENT: RIGHT ATRIUM: NORMAL LEFT ATRIUM: NORMAL RIGHT VENTRICLE: NORMAL LEFT VENTRICLE: NORMAL TRICUSPID VALVE: NORMAL MITRAL VALVE: NORMAL PULMONIC VALVE: NORMAL AORTIC VALVE: NORMAL PERICARDIAL EFFUSION: NONE AORTIC ROOT: NORMAL LEFT VENTRICULAR WALL MOTION: NORMAL DOPPLER/COLOR FLOW: NORMAL COMMENTS: NORMAL LEFT VENTRICULAR EJECTION FRACTION 55-60%. NORMAL WALL MOTION. TECHNOLOGIST: Dewayne AGUIRRE
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
== END 2020-02-13 18:47 | disposition home or self-care (01) ==
LOC: ER 17:40 → ERHOLD 19:25 → 2ND 22:23
PROVIDERS: ADMIT Hospitalist; ATTEND Hospitalist
DX: G45.9 Transient cerebral ischemic attack, unspecified (principal); I44.1 Atrioventricular block, second degree; I12.9 Hypertensive chronic kidney disease with stage 1 through stage 4 chronic kidney disease, or unspecified chronic kidney disease; N18.9 Chronic kidney disease, unspecified; N17.9 Acute kidney failure, unspecified; R13.10 Dysphagia, unspecified; K21.9 Gastro-esophageal reflux disease without esophagitis; N40.0 Benign prostatic hyperplasia without lower urinary tract symptoms; R00.1 Bradycardia, unspecified; R29.704 NIHSS score 4; Z87.891 Personal history of nicotine dependence; Z88.6 Allergy status to analgesic agent
CPT/HCPCS: 96365; 93005 ×2; 93306; 85025 ×2; 80048 ×2; 36415; 83735; 85610; 82947; 85730; 81003; 84484; 70450; 71045; 93880; 70551; 99285; U0002; J1644 ×2; J7030 ×2; G0378 ×2

== ENCOUNTER 2020-05-17 15:56 | Emergency (ER) | payer MEDICARE ==
--- OUTSIDE RECORDS SUMMARY | 2020-05-17 15:59 | XMS REPORT | Clinical Summary ---
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); Irvin Mccullough MD Stiffness of right hand joint 07/18/2019 Procedure visit Neurology Luke, Contracture of hand joint, right; Irvin Mccullough MD Nerve entrapment; Vijay, Carpal tunnel s yndrome, right upper limb; MD Cristiana Lesion of ulnar nerve, right upper limb; Right hand pain 07/11/2019 Office Visit Orthopedic Surgery Kobe Butleru re of hand joint, right (Primary Dx); Irvin Mccullough MD Nerve entrap ment 07/10/2019 Orders Only Orthopedic Surgery Dwain, Pain of r ight hand AGUEDA Zavala (Primary Dx) after 05/17/2019 Surgical History Surgery Date Site/Laterality Comments SPINE SURGERY Neck surgery Medical History Medical History Date Comments Arthritis Two months ago Cancer (HCC) 1 1/2 years ago Family History Medical History Relation Name Comments Liver disease Father Cesar Cancer Sister Sandy cohen Relation Name Status Comments Father Lashao Sister Sandy cohen Social History Tobacco Use Types Packs/Day Years Used Date Former Smoker 0 0 Smokeless Tobacco: Never Used Comments: Quit 15 yrs ago Alcohol Use Drinks/Week oz/Week Comments Yes seldom Sex Assigned at Date Recorded Not on file Last Filed Vital Signs Vital Sign Reading Time Taken Comments Blood Pressure - - Pulse - - Temperature - - Respiratory Rate - - Oxygen Saturation - - Inhaled Oxygen Concentration - - Weight 84.2 kg (185 lb 9.6 oz) 08/05/2019 9:12 AM [employer] Height 165.1 cm (5' 5") 11/01/2019 8:49 AM CDT Body Mass Index 30.89 08/05/2019 9:12 AM [employer]KE P[employer]ER Plan of Treatment Health Maintenance Due Date Last Done Comments COLONOSCOPY SCREENING 1997 SHINGLES VACCINES (#1) 1997 65+ PNEUMOCOCCAL VACCINE (1 of 1 - PPSV23) 02/04/2012 INFLUENZA VACCINE 01/04/2020 Procedures Procedure Name Priority Date/Time Associated Diagnosis [...] Pain of right hand Results for this [employer]KE 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 after 05/17/2019 Results Outpatient EEG (11/21/2019 11:06 AM CDT) [...] of the paranasal sinuses suggestive for sinusitis. [id number] Procedure Note Hm Interface, Radiology Results Incoming [...] the par anasal sinuses suggestive for sinusitis. [facility]-[id number] Performing Organization Address City/State/ZIP Code Phon e Number [facility] [address] [place] [address] MRI Cervical Spine Wo Contrast (11/21/2019 9:40 [...] is atrophy of posterior paraspi nal muscles. [id number] Procedure Note Hm Interface, Radiology Results 11/21/2019 11:52 AM CDT EXAMINATION: MRI CERVICAL [...] is atrophy of posterior paraspi nal muscles. [id number] Performing Organization Address [facility] Phon e Number [facility] [address] [place] [address] XR Hand 3+ Vw Right (07/11/2019 10:32 AM SHAKE PACKER) Specimen Narrative Performed At This result has an attachment that is no t available. [facility] Xrays: The x-rays were ordered and personally reviewed by me. 3 views of the right hand Reason for exam: Right hand dysfunction Impression: Flexor posturing of the hand does limit vi ews thumb CMC and STT arthritis noted Performing Organization Address [facility] Code Phon e Number [facility] [address] [place] [address] after 05/17/2019 [id number] 1 Advance Directives For more information, please contact: [phone] Type Date Recorded Patient Saw Filer Explanati on Advance Directives, Living Will 11/21/2019 7:48 AM and Medical Power of Brush Worker
--- OUTSIDE RECORDS SUMMARY | 2020-05-17 15:59 | XMS REPORT | Clinical Summary ---
:1945 Author Organization [facility] Address [address] [place] [address] Care Team Providers Name Role Phone Casey [...] Not on file Last Filed Vital Signs Not on file Plan of Treatment Health Maintenance Due Date Last Done Comments COLON CANCER SCREENING COLONOSCOPY 1945 PNEUMOCOCCAL 65+ YRS (1 of 1 - [id number] PCV13) 02/04/2012 MEDICARE ANNUAL WELLNESS (YEAR 2 or FIRST YEAR if no 06/06/2019 IPPE) INFLUENZA VACCINE (#1) 2020 Results Not on fileafter 05/17/2019 Insurance Payer Benefit Plan / Subscriber ID Effective Dates Phone Addre ss Type Group [facility]/MEDICARE [id number] 2018-Present MEDICARE MGD CARE COMPLETE Advance Directives For more information, please contact: [phone] Code Status Date Activated Date Inactivated Comments Full Code 07/05/2018 10:49 AM This code status was determined by: Patient
--- OUTSIDE RECORDS SUMMARY | 2020-05-17 16:00 | XMS REPORT | Continuity of Care Document ---
:1945 Author Organization [facility] t Address [address] [place] [address] Dr. Azar [address] [place] [id number] Care Team Providers Name Role Phone Casey Greenwood Primary Care Physician Olman ROMEO Attending Clinician Unavailable Gary MURGUIA Attending Clinician Jamel Butler MD Attending Clinician Dwain ROMEO Attending Clinician Unavailable Tray MURGUIA Attending Clinician Kalina SMITH Attending Clinician Hoang MURGUIA Attending Clinician MEREDITH HICKMAN Attending Clinician Unavailable Tray MURGUIA Admitting Clinician MEREDITH HICKMAN Admitting Clinician Unavailable Payers Payer Name Policy Type Policy Effective Date Expiration Date Sour ce Number [facility] MEDICAREAARP [id number] 2019 [place] MEDICARE ADVANTAGE 00:00:00 Method ist PLAN HMO-POS (Incentient)[id number] 2019-PresentHM O Problems Condition Condition Condition Status Onset Resolution [...] Active [place] jerky 10-31 Methodi movements movements 00:00: st 00 BPH BPH Disease Active [facility] ([facility]ign [facility]benign [facility] - prostatic prostatic 00:00: Medi troy hyperplasi hyperplasi 00 Ce nter a) a) Allergies, Adverse Reactions, Alerts Allergy Allergy Status Severity Reaction(s) Onset Inactive Treating Comm ents Source Name Type Date Date Clinician Morphine Propensi Active Rash chills [place] to 206 [facility] adverse 00:00: st reaction 00 s to drug Family History Family Member Diagnosis Comments Start Date Stop Date Source Natural father Liver disease [facility] Natural sister Cancer [facility] thodi Social History Social Habit Start Date Stop Date Quantity Comments Source History of tobacco Current sm[facility] History SDAR [facility] - Alcohol Std Drinks [facility] History [facility] - Alcohol Binge [facility] Sex Assigned At [facility] ethodist Tobacco use and 2019-11-01 2019-11-01 Never used [facility]ist exposure 00:00:00 00:00:00 Alcohol intake 2019-11-01 2019-11-01 Current drinker [place] [facility] 00:00:00 00:00:00 of alcohol (finding) Tobacco Comment 2019-07-11 2019-07-11 Quit 15 yrs ago [place] [facility] 00:00:00 00:00:00 Alcohol Comment 2019-07-11 2019-07-11 seldom [facility] ethodist 00:00:00 00:00:00 History SDOH 2018-07-03 2018-07-[address] [facility] - Alcohol Frequency 00:00:00 00:00:00 Medical Center Smoking Status Start Date Stop Date Source Never Smoker [facility] Former smoker 2019-11-01 00:00:00 2019-11-01 00:00:00 [facility] Medications Ordered Filled Start Stop Current Ordering Indication Dosage Frequency Signature Comments Components Source Medication Medication Date Date Medication? Clinician (SIG) Name Name doxazosin Yes 2mg QD Take 2 mg Robert rahman (CARDURA) 2 10-31 by mouth Meth oli MG tablet 08:48: nightly. st 38 gabapentin 2020-0 Yes 600mg Q.5D Take 600 [place] (NEURONTIN) 5-29 mg by Methodi 600 mg 08:48: mouth 2 st tablet 38 (two) times a day. lisinopril 2020-0 Yes 5mg QD Take 5 mg [place] (PRINIVIL) 5-29 by mouth Metho di 5 mg tablet 08:48: daily. st 38 HYDROcodone 2019-0 Yes 1{tbl} Take 1 [place] -acetaminop 4-08 tablet by Met willy hopkins (NORCO) 00:00: mouth. st 10-325 mg 00 per tablet pantoprazol 2019-0 Yes 40mg QD Take 40 mg Odell e 1-30 by mouth Methodi (PROTONIX) 00:00: daily. st 40 MG EC 00 tablet cyclobenzap 2018-06 Yes 5mg Take 5 mg [place] rine 2-23 by mouth. Methodi (FLEXERIL) 00:00: st 5 mg tablet 00 tamsulosin 0 Yes .4mg QD Take 0.[address] (FLOMAX) 2-01 mg by [facility] - 0.4 mg Cap 16:21: mouth Medica l 24 hr 36 daily. Center capsule finasteride 2018-0 Yes 5mg QD Take [address] (PROSCAR) 5 2-01 by mouth Luke s - mg tablet 16:21: daily. Medica l 36 Center pantoprazol 2018-0 Yes 40mg QD Take [address] e 2-01 by mouth [facility] - (PROTONIX) 16:21: daily. Medic al 40 MG 36 Center tablet doxazosin 0 Yes 2mg QD Take [address] (CARDURA) 2 2-01 by mouth Luke s - MG tablet 16:21: nightly. Medi troy 36 Center acetaminoph acetaminoph No acetaminop [place] [...] Fluzone [place] High-Dose High-Dose High-Dose da 2017-2019 [id number] Medical (PF) 180 (PF) 180 (PF) 180 [...] Source BP Diastolic 2018-10-25 00:00:00 80 mm[Hg] [facility] Height 2018-10-25 00:00:00 57 [in_i] [facility] BMI (Body Mass 2018-10-25 00:00:00 40 kg/m2 [employer] Medical Index) Group BP Systolic 2018-10-25 00:00:00 130 mm[Hg] [facility] Body Weight 2018-10-25 00:00:00 185 [lb_av] [facility] Body Weight 2018-08-09 00:00:00 185 [lb_av] [facility] BP Diastolic 2018-06-14 00:00:00 75 mm[Hg] [facility] BP Systolic 2018-06-14 00:00:00 146 mm[Hg] [facility] Body Weight 2018-06-14 00:00:00 185 [lb_av] [facility] Body height 2019-11-01 08:49:00 [...] Planned Date Details Comments Source Future Scheduled 2020-02-04 INFLUENZA VACCINE (#1) [facility] Test 00:00:00 [code = INFLUENZA Medical Ce nter VACCINE (#1)] Future Scheduled 2020-01-04 INFLUENZA VACCINE [place] [facility] Test 00:00:00 [code = INFLUENZA VACCINE] Future Scheduled 2019-06-[address] [facility] - Test 00:00:00 WELLNESS (YEAR 2 or Medical Center FIRST YEAR if no IPPE) [code = MEDICARE ANNUAL WELLNESS (YEAR 2 or FIRST YEAR if no IPPE)] Future Scheduled 2012-02-04 PNEUMOCOCCAL 65+ [facility] - Test 00:00:00 (1 of 1 - Medical Center [id number] PCV13) [code = PNEUMOCOCCAL 65+ YRS (1 of 1 - [id number] PCV13)] Future Scheduled 2012-02-04 65+ PNEUMOCOCCAL [place] [facility] Test 00:00:00 VACCINE (1 of 1 - PPSV23) [code = 65+ PNEUMOCOCCAL VACCINE (1 of 1 - PPSV23)] Future Scheduled 1997 COLONOSCOPY SCREENING [place] [facility] Test 00:00:00 [code = COLONOSCOPY SCREENING] Future Scheduled 1997 SHINGLES VACCINES (#1) [place] [facility] Test 00:00:00 [code = SHINGLES VACCINES (#1)] Future Scheduled [address] [facility] - Test 00:00:00 malignant neoplasm of [facility] colon (procedure) [code = 134218734] Encounters Start End Encounter Admission Attending Care Care Encounter Source Date/Time Date/Time Type Type Clinicians Facility Department ID 2019-11-21 2019-11-21 Outpatient [facility] [id number] [place] 00:00:00 00:00:00 , CRISTIANA [address] 2019-11-21 2019-11-21 Outpatient [facility] [id number] [place] 00:00:00 00:00:00 , CRISTIANA [address] 2019-11-21 2019-11-21 Outpatient [facility] [id number] [place] 00:00:00 00:00:00 , CRISTIANA [address] 2019-11-01 2019-11-01 Outpatient [facility] [id number] [place] 00:00:00 00:00:00 , CRISTIANA [address] 2019-08-05 2019-08-05 Outpatient [facility] [id number] [place] 00:00:00 00:00:00 IRVIN Warren Method i st 2019-01-11 2019-01-11 Patient Salvador Feliz [id number] 00:00:00 00:00:00 Secure Msg [place] [id number] [place] [id number] 2019-01-09 2019-01-09 Transition Rajinder Gilman [id number] 00:00:00 00:00:00 of Care Fallon Jang [id number] [place] [id number] 2019-01-06 2019-01-08 [facility] Gildardo Bolton [id number] 14:48:44 20:45:00 Encounter Salvador Feliz [id number] [place] [id number] 2018-10-25 2018-10-25 George Archibald [facility] [place] - [id number] [place] 00:00:00 00:00:00 MD Rosaura: [place] [phone] , Ph. 2018-08-09 2018-08-09 George Archibald [facility] [place] - [id number] [place] 00:00:00 00:00:00 MD Rosaura: [place] [phone] , Ph. 2018-06-14 2018-06-14 George Archibald [facility] [place] - [id number] [place] 00:00:00 00:00:00 MD Rosaura: [place] [address], [place] [phone] , Ph. 2018-05-17 2018-05-17 George Archibald [facility] [place] - [id number] [place] 00:00:00 00:00:00 MD Rosaura: [place] [address], [place] [phone] , Ph. 2018-03-15 2018-03-15 George Archibald [facility] [place] - [id number] [place] 00:00:00 00:00:00 MD Rosaura: [employer] [address] Group Alyssa Doyle - [address], [place] [address] , Ph. Results Test Description Test Test Results Result Source Time Comments Comments Outpatient EEG 2019-11- This is a normal [place] electroencephalogram. No [facility] 13:18:26 epileptiform activity is seen. Cristiana Linares [...] performed with no abnormalities elicited. MRI Cervical 2019-11- Interface, Radiology [place] Spine Wo 18 Results Incoming - Method [...] patent.5. There is atrophy of posterior paraspinal muscles.[facility]-[id number] MRI Brain Wo 2019-11- Interface, Radiology [place] Contrast 18 Results Incoming - Method ist [...] thickening of the paranasal sinuses suggestive for sinusitis.[facility]-[id number] TISSUE EXAM 2018-07- Surgical Pathology 06 Report 14:20:00 Case: [id number] Authorizing Provider: George Hickman MD Collected: 07/05/2018 1015 Ordering Location: [facility] PERI[facility] Received: 07/05/2018 1218 SERVICES Pathologist: Roger Sun MD Specimen: Prostate, TURP, PROSTATE CHIPS PROSTATE, TURP: - NODULAR HYPERPLASIA Signing Pathologist Direct Phone Line: [phone] ly signed by Roger Sun MD on 07/11/2018 at 2:20 [id number] prostatic hyperplasiaProstate chipsThe specimen is received in [...] code 9.1 mg/dL 8.4-10.2 = 697) EGFR (MIKAELA) (test code = 80 mL/min/1.73 sq m ESTIMATED GFR IS NOT 1092) ACCURATE CRE ATININE CLEARANCE IN CA EDICTING GLOMERULAR FILT RATION RATE. ESTIMATED GFR IS NOT APPLICABLE FOR DIALYSIS PATIENTS. HEMOGLOBIN AND [id number] 05:06:00 Test Item Value Reference Range Interpretation Comments HEMOGLOBIN (MIKAELA) (test code = 12.1 GM/DL 13.7-17.5 L 410) HEMATOCRIT (MIKAELA) (test code = 38.0 % 40.1-51.0 L 411) POCT-HEMOGLOBIN [id number] 07:55:00 Test Item Value Reference Range Interpretation Comments POC-HEMOGLOBIN METER 12.9 g/dL 13.0-16.[address] [facility] 6720 (MIKAELA) (test code = [place] 1539) [address] Urinalysis macro (dipstick) panel - [id number] 11:40:00 Test Item Value Reference Range Interpretation Comments Color of Urine by Auto (test yellow code = 03475-2) Appearance of Urine (test code clear clear = 5767-9) Glucose [Presence] in Urine by negative negative Automated test strip (test code = 46396-9) Bilirubin.total [Mass/volume] negative negative in Urine (test code = 1978-6) Ketones [Mass/volume] in Urine negative negative by Automated test strip (test code = 31322-4) Specific gravity of Urine by 1.017 1.003-1.030 Automated test strip (test code = 49971-6) blood urine (test code = blood negative negative urine) pH of Urine (test code = 5.500 5-9 2756-5) protein urine (UA) (test code = negative negative protein urine (UA)) Urobilinogen [Presence] in normal 0.2-1.0 Urine (test code = 07326-0) Nitrite [Presence] in Urine by negative negative Test strip (test code = 5802-4) Leukocyte esterase [Presence] negative negative in Urine by Automated test strip (test code = 27470-9) Erythrocytes [#/volume] in =1-5 0-5 Urine by Automated count (test code = 798-9) Leukocytes [#/area] in Urine =1-5 0-5 sediment by Automated count (test code = 80401-7) Epithelial cells [Presence] in <1 0-5 Urine sediment by Light microscopy (test code = 85629-1) Bacteria identified in Urine by none detected none detect Culture (test code = 630-4) Casts [#/area] in Urine =2-5 none detect sediment by Automated count (test code = 49898-2) urine culture added? (test code no = urine culture added?) [facility] by [id number] 11:40:00 Test Item Value Reference Range Interpretation Comments Bacteria identified in no growth at 48 hrs. Urine by Culture (test code = 630-4) [facility]dipstick[facility] panel - [id number] 10:42:00 Test Item Value Reference Range Interpretation Comments Leukocytes (test code = Leukocytes) Negative Nitrite (test code = Nitrite) negative Urobilinogen (test code = .2 Urobilinogen) Protein (test code = Protein) Negative pH (test code = pH) 6.0 Blood (test code = Blood) Moderate Specific [place] (test code = 1.020 Specific [place]) Ketone (test code = Ketone) Negative Bilirubin (test code = Bilirubin) Negative Glucose (test code = Glucose) Negative [facility] (dipstick) panel - [id number] 10:42:00 Test Item Value Reference Range Interpretation Comments Leukocytes (test code = Leukocytes) Negative Nitrite (test code = Nitrite) negative Urobilinogen (test code = .2 Urobilinogen) Protein (test code = Protein) Negative pH (test code = pH) 6.0 Blood (test code = Blood) Moderate Specific [place] (test code = 1.020 Specific [place]) Ketone (test code = Ketone) Negative Bilirubin (test code = Bilirubin) Negative Glucose (test code = Glucose) Negative [facility]
[2020-05-17 17:20] LABS: Urine Appearance TURBID; Urine Blood 3+ (NEG); Urine Color RED; Urine Glucose NEGATIVE (NEG); Urine Protein 1+ (NEG)
--- NOTE | 2020-05-17 17:32 | RAD REPORT ---
EXAM DESCRIPTION: CT - Stone Protocol - 05/17/2020 5:05 pm CLINICAL HISTORY: Abd pain;Hematuria COMPARISON: Stone Protocol dated 01/04/2019 TECHNIQUE: Axial 3 mm thick images were obtained without oral or IV contrast. The [id number]-yg-tyum span s the entirety of the system including uppermost abdomen and lung bases. All CT scans are performed using dose optimization technique as appropriate and may include automated exposure control or mA/KV adjustment according to patient size. FINDINGS: No hydronephrosis is present and no obstructing ureteral calculi. No suspicious renal mass es. Isodense masses and pyelonephritis are not excluded on a stone protocol CT scan. Multiple bilater al renal cysts are present including a large exophytic 6.6 cm cyst posterior to the left kidney. No s ignificant adrenal finding. No urinary bladder wall thickening. There is a lobulated prostate gland p rojecting into the bladder base. Ill-defined hyperdense focus in the posterior bladder is probably he morrhagic material. A bladder base mass is not confirmed. Imaged portions of the liver, spleen and pancreas show no suspicious findings on non-contrast imaging . No gallbladder or biliary tree abnormality identified. Minimal hiatal hernia is present. No gastric wall thickening or mass. No dilated large or small bowel loops. Patient has prominent diverticulosis without diverticulitis. No mass or bulky lymphadenopathy. Large bilateral fat filled inguinal hernias are present. No free ai r, free fluid or inflammatory stranding. No significant bony abnormality. IMPRESSION: No hydronephrosis, obstructing calculus or acute renal or ureteral finding. Patient has bilateral benign-appearing renal cysts similar to the comparison. Heterogeneous hyperdense material in the posterior bladder believed be hemorrhagic material. A bladde r wall mass is not confirmed. Lobulated prostate gland projecting into the bladder base. Isodense masses and pyelonephritis are not excluded on stone protocol technique.
--- NOTE | 2020-05-17 17:33 | RAD REPORT ---
EXAM DESCRIPTION: RAD - Chest Single View - 05/17/2020 5:23 pm CLINICAL HISTORY: ABDOMINAL DISTENTION COMPARISON: February 12, 2020 TECHNIQUE: AP portable chest image was obtained 05/17/2020 5:23 pm . FINDINGS: No focal lung parenchymal process. Interstitial pattern is prominent similar to comparison . Heart and vasculature are normal. No measurable pleural effusion and no pneumothorax. No acute bony abnormality seen. No acute aortic findings suspected. IMPRESSION: No acute cardiopulmonary process. No significant change from comparison study.
[2020-05-17 17:34] LABS: Urine Microscopic Reflex ORDER UMIC
[2020-05-17] MEDS ORDERED: NA CHLORIDE 0.9% 1,000 ML ONE (17:35)
[2020-05-17] MEDS ORDERED: CEFTRIAXONE/SWI 1gm 1 GM/10 ML SYR ONE (17:36)
[2020-05-17 17:44] LABS: Absolute Lymphocytes (CBC) 1.9 K/uL (0.7-4.9); Basophils % 1.4 % (0-1.3); Hematocrit 40.1 % (39.6-49.0); Lymphocytes % 19.4 % (15.3-44.8); MPV 8.8 fL (7.6-11.3); Protime INR 1.06; RBC Red Blood Cell Count 4.86 M/uL (4.33-5.43)
[2020-05-17 18:01] LABS: ALT/SGPT 24 U/L (12-78); AST/SGOT 19 U/L (15-37); Alkaline Phosphatase 77 U/L (45-117); BUN Blood Urea Nitrogen 19 mg/dL (7-18); Bicarbonate 28 mmol/L (21-32); Bilirubin Direct < 0.1 mg/dL (0-0.2); Bilirubin Total 0.2 mg/dL (0.2-1.0); Glucose Level 84 mg/dL (74-106); Lipase 110 U/L (73-393); NT PRO-BNP 142 pg/mL (<125); Potassium 3.9 mmol/L (3.5-5.1); Protein, Total 8.5 g/dL (6.4-8.2); Sodium Level 140 mmol/L (136-145); Troponin (Emerg Dept Use Only) < 0.02 ng/mL (0.0-0.045)
[2020-05-17 18:01] LABS: Urine Bacteria <20 /HPF (NONE SEEN); Urine Bilirubin NEGATIVE (NEG); Urine RBC LOADED /HPF (NONE SEEN)
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
--- NOTE | 2020-05-17 18:06 | EDPHYS ---
Physician Documentation [facility] Name: Jaswant Funes Age: 75 yrs Sex: Male : 1945 Arrival Date: 05/17/2020 Time: 15:58 Bed 6 Private MD: Malina Greenwood H ED Physician Lalo Kevin HPI: 05/17 16:50 This 75 yrs old Male presents to ER via Wheelchair with complaints of Blood In arely Urine. 16:50 The patient presents with urinary symptoms, dribbling of urine, dysuria, hematuria. arely Onset: The symptoms/episode began/occurred 2 day(s) ago. Modifying factors: The symptoms are alleviated by nothing, the symptoms are aggravated by nothing. Associated signs and symptoms: Pertinent positives: abdominal pain. Severity of symptoms: At their worst the symptoms were mild, moderate, in the emergency department the symptoms are unchanged. The patient has not experienced similar symptoms in the past. Historical: - Allergies: 16:20 Morphine; ca1 - PMHx: 16:20 Bat Bite - left hand; BPH; GERD; Hypertension; Rattlesnake Bite - right hand; ca1 - PSHx: 16:20 R shoulder Surgery; ca1 - Immunization history:: Adult Immunizations up to date, Pneumococcal vaccine is up to date, Flu vaccine is up to date. - Social history:: Smoking status: Patient/guardian denies using tobacco, the patient reports quitting approximately 15 years ago. ROS: 16:52 Constitutional: Negative for fever, chills, and weight loss, Eyes: Negative for injury, arely pain, redness, and discharge, ENT: Negative for injury, pain, and discharge, Neck: Negative for injury, pain, and swelling, Cardiovascular: Negative for chest pain, palpitations, and edema, Respiratory: Negative for shortness of breath, cough, wheezing, and pleuritic chest pain, Back: Negative for injury and pain, MS/Extremity: Negative for injury and deformity, Skin: Negative for injury, rash, and discoloration, Neuro: Negative for headache, weakness, numbness, tingling, and seizure, Psych: Negative for depression, anxiety, suicide ideation, homicidal ideation, and hallucinations, Allergy/Immunology: Negative for hives, rash, and allergies, Endocrine: Negative for neck swelling, polydipsia, polyuria, polyphagia, and marked weight changes, Hematologic/Lymphatic: Negative for swollen nodes, abnormal bleeding, and unusual bruising. 16:52 Abdomen/GI: Positive for abdominal pain, abdominal cramps, abdominal distension, of the suprapubic area. Exam: 16:52 Constitutional: This is a well developed, well nourished patient who is awake, alert, arely and in no acute distress. Head/Face: Normocephalic, atraumatic. Eyes: Pupils equal round and reactive to light, extra-ocular motions intact. Lids and lashes normal. Conjunctiva and sclera are non-icteric and not injected. Cornea within normal limits. Periorbital areas with no swelling, redness, or edema. ENT: Nares patent. No nasal discharge, no septal abnormalities noted. Tympanic membranes are normal and external auditory canals are clear. Oropharynx with no redness, swelling, or masses, exudates, or evidence of obstruction, uvula midline. Mucous membranes moist. Neck: Trachea midline, no thyromegaly or masses palpated, and no cervical lymphadenopathy. Supple, full range of motion without nuchal rigidity, or vertebral point tenderness. No Meningismus. Chest/axilla: Normal chest wall appearance and motion. Nontender with no deformity. No lesions are appreciated. Cardiovascular: Regular rate and rhythm with a normal S1 and S2. No gallops, murmurs, or rubs. Normal PMI, no JVD. No pulse deficits. Respiratory: Lungs have equal breath sounds bilaterally, clear to auscultation and percussion. No rales, rhonchi or wheezes noted. No increased work of breathing, no retractions or nasal flaring. Back: No spinal tenderness. No costovertebral tenderness. Full range of motion. Skin: Warm, dry with normal turgor. Normal color with no rashes, no lesions, and no evidence of cellulitis. MS/ Extremity: Pulses equal, no cyanosis. Neurovascular intact. Full, normal range of motion. Neuro: Awake and alert, GCS 15, oriented to person, place, time, and situation. Cranial nerves II-XII grossly intact. Motor strength 5/5 in all extremities. Sensory grossly intact. Cerebellar exam normal. Normal gait. Psych: Awake, alert, with orientation to person, place and time. Behavior, mood, and affect are within normal limits. 16:52 Abdomen/GI: Inspection: distension, Bowel sounds: normal, Palpation: mild abdominal tenderness, in the suprapubic area, right lower quadrant and left lower quadrant, Liver: no appreciated palpable abnormalities, Hernia: not appreciated. Vital Signs: 16:16 BP 183 / 101; Pulse 89; Resp 16 S; Temp 97.7(TE); Pulse Ox 96% on R/A; Weight 83.91 kg ca1 (R); Height 5 ft. 5 in. (165.10 cm) (R); Pain 5/10; 18:07 BP 124 / 68; Pulse 63; Resp 16; Pulse Ox 98% on R/A; iw 16:16 Body Mass Index 30.79 (83.91 kg, 165.10 cm) ca1 MDM: 16:15 Patient medically screened. arely 16:54 Differential diagnosis: nonspecific abdominal pain, UTI, urinary retention, arely prostatitis, urethritis, bowel obstruction, non-specific abd pain, pancreatitis, Ureterolithiasis, urinary tract infection. Data reviewed: vital signs, nurses notes, lab test result(s), EKG, radiologic studies, CT scan, plain films. Data interpreted: monitor and storage bin tender: rate is 89 beats/min, rhythm is regular, Pulse oximetry: on room air is 96 %. Test interpretation: by ED physician or midlevel provider: ECG, plain radiologic studies. Counseling: I had a detailed discussion with the patient and/or guardian regarding: the historical points, exam findings, and any diagnostic results supporting the discharge/admit diagnosis, the presence of at least one elevated blood pressure reading (>120/80) during this emergency department visit, lab results, radiology results. 18:07 ED course: pvr 0, lucina. [facility] 05/17 16:50 Order name: Basic Metabolic Panel [facility] 05/17 16:50 Order name: CBC with Diff; Complete Time: 17:57 [facility] 05/17 16:50 Order name: LFT's [facility] 05/17 16:50 Order name: Magnesium [facility] 05/17 16:50 Order name: NT PRO-BNP [facility] 05/17 16:50 Order name: PT-INR; Complete Time: 17:57 [facility] 05/17 16:50 Order name: Troponin (emerg Dept Use Only) [facility] 05/17 16:50 Order name: XRAY Chest (1 view); Complete Time: 17:57 [facility] 05/17 16:50 Order name: Lipase [facility] 05/17 16:50 Order name: Urine Culture [facility] 05/17 16:50 Order name: Basic Metabolic Panel [facility] 05/17 16:50 Order name: Liver (Hepatic) Function [facility] 05/17 17:09 Order name: Urinalysis 05/17 17:48 Order name: Urine Microscopic Only [facility] 05/17 16:50 Order name: EKG; Complete Time: 16:51 [facility] 05/17 16:50 Order name: Cardiac monitoring; Complete Time: 17:34 [facility] 05/17 16:50 Order name: EKG - Nurse/Tech; Complete Time: 17:34 [facility] 05/17 16:50 Order name: IV Saline Lock; Complete Time: 17:22 [facility] 05/17 16:50 Order name: Labs collected and sent; Complete Time: 17:22 [facility] 05/17 16:50 Order name: O2 Per Protocol; Complete Time: 17:22 [facility] 05/17 16:50 Order name: O2 Sat Monitoring; Complete Time: 17:22 [facility] 05/17 16:50 Order name: Urine Dipstick-Ancillary (obtain specimen); Complete Time: 17:34 [facility] 05/17 16:50 Order name: Bladder Scanner; Complete Time: 17:23 [facility] 05/17 16:50 Order name: CT Stone Protocol; Complete Time: 17:33 [facility] Administered Medications: 17:24 Drug: NS 0.9% 1000 ml Route: IV; Rate: 125 ml/hr; Site: left antecubital; jl7 17:24 Drug: Rocephin 1 grams Route: IV; Rate: per protocol; Site: left antecubital; jl7 17:30 Follow up: IV Status: Completed infusion iw 18:46 Drug: Cipro 500 mg Route: PO; iw 19:00 Follow up: Response: No adverse reaction iw 18:46 Drug: Flomax 0.4 mg Route: PO; iw 19:00 Follow up: Response: No adverse reaction iw 18:46 Drug: HYDROcodone-acetaminophen 10 mg-325 mg 1 tabs Route: PO; iw 19:38 Follow up: Response: No adverse reaction iw 18:47 Drug: NS 0.9% 500 ml Route: IV; Rate: bolus; Site: left antecubital; iw Disposition: 05/17/20 18:05 Discharged to Home. Impression: Hematuria, Urinary tract infection, site not specified, Dysuria. - Condition is Stable. - Discharge Instructions: Dysuria, Hematuria, Adult, Urinary Tract Infection, Adult, Urinary Tract Infection, Adult, [id number]. - Prescriptions for Flomax 0.4 mg Oral Capsule, Sust. Release 24 hr - take 1 capsule by ORAL route once daily 1/2 hour following the same meal each day; 30 capsule. Cipro 500 mg Oral Tablet - take 1 tablet by ORAL route every 12 hours for 7 days; 14 tablet. - Medication Reconciliation Form, Thank You Letter, Antibiotic Education, Prescription Opioid Use form. - Follow up: Malina Greenwood DO; When: 2 - 3 days; Reason: Recheck today's complaints, Continuance of care, Re-evaluation by your physician. Follow up: Abhay Bassett MD; When: 1 - 2 days; Reason: Recheck today's complaints, Re-evaluation by your physician. - Problem is new. - Symptoms have improved. Signatures: Dispatcher [employer] Katie No, RN RN dmLalo Guardado MD MD cha Williams, Irene, RN RN iw Leal, Jahala, RN RN jl7 Arianna Brink RN RN ca1 Corrections: (The following items were deleted from the chart) 19:18 18:05 05/17/2020 18:05 Discharged to Home. Impression: Hematuria; Urinary tract dm5 infection, site not specified; Dysuria. Condition is Stable. Forms are Medication Reconciliation Form, Thank You Letter, Antibiotic Education, Prescription Opioid Use. Follow up: Malina Greenwood; When: 2 - 3 days; Reason: Recheck today's complaints, Continuance of care, Re-evaluation by your physician. Follow up: Abhay Bassett; When: 1 - 2 days; Reason: Recheck today's complaints, Re-evaluation by your physician. Problem is new. Symptoms have improved. arely
[2020-05-17] MEDS ORDERED: TAMSULOSIN 0.4 MG SR CAP ONE (18:52)
[2020-05-17] MEDS ORDERED: CIPROFLOXACIN HCL 500 MG TAB ONE (18:52)
[2020-05-17] MEDS ORDERED: NA CHLORIDE 0.9% 0 ML ONE (18:53)
[2020-05-17] MEDS ORDERED: HYDROCODONE/APAP 10/325 TAB ONE (18:58)
[2020-05-21 02:34] VITALS: TEMP 97.7
[2020-05-21 02:35] VITALS: BP 124/68; O2SAT 98
== END 2020-05-17 19:18 | disposition home or self-care (01) ==
LOC: ER 15:56
DX: N39.0 Urinary tract infection, site not specified (principal); R31.9 Hematuria, unspecified; I10 Essential (primary) hypertension; Z88.5 Allergy status to narcotic agent
CPT/HCPCS: 93005; 87088; 85025; 87086; 80048; 36415; 83735; 85610; 80076; 84484; 83690; 83880; 76377; 74176; 71045; J0696; J7030; 81003; 81015; 96374; 99284; J7040

== ENCOUNTER 2021-06-24 12:29 | Emergency (ER) | payer MEDICARE, OTHER ==
--- OUTSIDE RECORDS SUMMARY | 2021-06-24 12:52 | XMS REPORT | Continuity of Care Document ---
:1945 Author Organization [facility] t Address [address] [place] [address] Care Team Providers Name Role Phone Cristian Attending Clinician Unavailable GARY Attending Clinician Unavailable MICHELLE Attending Clinician Unavailable Tray MURGUIA Attending Clinician Kalina SMITH Attending Clinician Hoang MURGUIA Attending Clinician MEREDITH HICKMAN Attending Clinician Unavailable Cristian Admitting Clinician Unavailable Tray MURGUIA Admitting Clinician MEREDITH HICKMAN Admitting Clinician Unavailable Payers Payer Name Policy Type Policy Number Effective Date Expiration Date S aneta [facility] MEDIC[facility] [id number] COMPLETE (MEDICARE REPLACEMENT HMO) Problems This patient has no known problems. Allergies, Adverse Reactions, Alerts This patient has no known allergies or adverse reactions. Social History Smoking Status Start Date Stop Date Source Never Smoker [facility] Medications Ordered Filled Start Stop Current Ordering Indication Dosage Frequency Signature Comments Components Source Medication Medication Date Date Medication? Clinician (SIG) Name Name acetaminoph acetaminoph No acetaminop [place] [facility] [...] Source BP Diastolic 2018-10-25 00:00:00 80 mm[Hg] [facility] Height 2018-10-25 00:00:00 57 [in_i] [facility] BMI (Body Mass 2018-10-25 00:00:00 40 kg/m2 [facility]) Group BP Systolic 2018-10-25 00:00:00 130 mm[Hg] [facility] Body Weight 2018-10-25 00:00:00 185 [lb_av] [facility] Body Weight 2018-08-09 00:00:00 185 [lb_av] [facility] BP Diastolic 2018-06-14 00:00:00 75 mm[Hg] [facility] BP Systolic 2018-06-14 00:00:00 146 mm[Hg] [facility] Body Weight 2018-06-14 00:00:00 185 [lb_av] [facility] Procedures This patient has no known procedures. Encounters Start End Encounter Admission Attending Care Care Encounter Source Date/Time Date/Time Type Type Clinicians Facility Department ID 2020-12-16 2020-12-16 Outpatient [facility] [id number] [facility] 00:00:00 00:00:00 [facility] 2020-04-22 2020-04-22 Outpatient Cristian [facility] MMG [id number] [place] 02:24:00 02:24:00 [facility] 2019-11-21 2019-11-21 Outpatient GARY [facility] [id number] [place] 00:00:00 00:00:00 , OPAL [address] 2019-11-21 2019-11-21 Outpatient GARY [facility] [id number] [place] 00:00:00 00:00:00 , OPAL [address] 2019-11-21 2019-11-21 Outpatient GARY [facility] [id number] [place] 00:00:00 00:00:00 , OPAL [address] 2019-11-01 2019-11-01 Outpatient GARY [facility] [id number] [place] 00:00:00 00:00:00 , OPAL [address] 2019-08-05 2019-08-05 Outpatient [facility] [id number] [place] 00:00:00 00:00:00 BISHOP [address] 2019-01-11 2019-01-11 Patient Salvador Feliz [id number] 00:00:00 00:00:00 Secure Msg [place] [id number] [place] [id number] 2019-01-09 2019-01-09 Transition Rajinder Gilman [id number] 00:00:00 00:00:00 of Care Fallonsantiago Jang [id number] [place] [id number] 2019-01-06 2019-01-08 Hospital Gildardo Bolton [id number] 14:48:44 20:45:00 Encounter Salvador Felizy [id number] [place] [id number] 2018-10-25 2018-10-25 George Archibald [facility] [place] - [id number] [place] 00:00:00 00:00:00 MD Rosaura: [place] [phone] , Ph. 2018-08-09 2018-08-09 George Archibald [facility] [place] - [id number] [place] 00:00:00 00:00:00 MD Rosaura: [address] [phone] , Ph. 2018-06-14 2018-06-14 George Archibald MM [place] - [id number] [place] 00:00:00 00:00:00 MD Rosaura: [address] [phone] , Ph. 2018-05-17 2018-05-17 George Archibald MM [place] - [id number] [place] 00:00:00 00:00:00 MD Rosaura: [address], [place] [address] , Ph. 2018-03-15 2018-03-15 George Archibald MMG [place] - [id number] M [place] 00:00:00 00:00:00 MD Rosaura: [address], [place] [address] , Ph. Results Test Description Test Time Test Comments Results Result [facility] e Comments TISSUE EXAM 2018-07-11 Surgical Pathology 14:20:00 Report Case: [id number] Authorizing Provider: George Hickman MD Collected: 07/05/2018 1015 Ordering Location: [facility] PERIOPERATIVE Received: 07/05/2018 1218 SERVICES Pathologist: Roger Sun MD Specimen: Prostate, TURP, PROSTATE CHIPS PROSTATE, TURP: - NODULAR HYPERPLASIA Signing Pathologist Direct Phone Line: [phone] ly signed by Roger Sun MD on 07/11/2018 at 2:20 [id number] prostatic hyperplasiaProstate chipsThe specimen is received in [...] mg/dL 0.57-1.25 code = 358) GLUCOSE RANDOM ([facility]) 110 mg/dL 70-105 H (test code = 652) CALCIUM (MIKAELA) (test code 9.1 mg/dL 8.4-10.2 = 697) EGFR ([facility]) (test code = 80 mL/min/1.73 sq m ESTIMATED GFR IS NOT 1092) ACCURATE CRE ATININE CLEARANCE IN SC EDICTING GLOMERULAR FILT RATION RATE. ESTIMATED GFR IS NOT APPLICABLE FOR DIALYSIS PATIENTS. HEMOGLOBIN AND [id number] 05:06:00 Test Item Value Reference Range Interpretation Comments HEMOGLOBIN (MIKAELA) (test code = 12.1 GM/DL 13.7-17.5 L 410) HEMATOCRIT (MIKAELA) (test code = 38.0 % 40.1-51.0 L 411) POCT-HEMOGLOBIN [id number] 07:55:00 Test Item Value Reference Range Interpretation Comments POC-HEMOGLOBIN METER 12.9 g/dL 13.0-16.[address] [facility] 6720 ([facility]) (test code = [place] 1539) [address] Urinalysis macro (dipstick) panel - [id number] 11:40:00 Test Item Value Reference Range Interpretation Comments Color of Urine by Auto (test yellow code = 10361-5) Appearance of Urine (test code clear clear = 5767-9) Glucose [Presence] in Urine by negative negative Automated test strip (test code = 76335-3) Bilirubin.total [Mass/volume] negative negative in Urine (test code = 1978-6) Ketones [Mass/volume] in Urine negative negative by Automated test strip (test code = 53575-5) Specific gravity of Urine by 1.017 1.003-1.030 Automated test strip (test code = 65145-8) blood urine (test code = blood negative negative urine) pH of Urine (test code = 5.500 5-9 5766-5) protein urine (UA) (test code = negative negative protein urine (UA)) Urobilinogen [Presence] in normal 0.2-1.0 Urine (test code = 25468-4) Nitrite [Presence] in Urine by negative negative Test strip (test code = 5802-4) Leukocyte esterase [Presence] negative negative in Urine by Automated test strip (test code = 52832-0) Erythrocytes [#/volume] in =1-5 0-5 Urine by Automated count (test code = 798-9) Leukocytes [#/area] in Urine =1-5 0-5 sediment by Automated count (test code = 86249-4) Epithelial cells [Presence] in <1 0-5 Urine sediment by Light microscopy (test code = 23796-1) Bacteria identified in Urine by none detected none detect Culture (test code = 630-4) Casts [#/area] in Urine =2-5 none detect sediment by Automated count (test code = 48354-4) urine culture added? (test code no = urine culture added?) [facility] by [id number] 11:40:00 Test Item Value Reference Range Interpretation Comments Bacteria identified in no growth at 48 hrs. Urine by Culture (test code = 630-4) [facility] (dipstick) panel - [id number] 10:42:00 Test Item Value Reference Range Interpretation Comments Leukocytes (test code = Leukocytes) Negative Nitrite (test code = Nitrite) negative Urobilinogen (test code = .2 Urobilinogen) Protein (test code = Protein) Negative pH (test code = pH) 6.0 Blood (test code = Blood) Moderate Specific [place] (test code = 1.020 Specific [place]) Ketone (test code = Ketone) Negative Bilirubin (test code = Bilirubin) Negative Glucose (test code = Glucose) Negative [facility] (dipstick) panel - [id number] 10:42:00 Test Item Value Reference Range Interpretation Comments Leukocytes (test code = Leukocytes) Negative Nitrite (test code = Nitrite) negative Urobilinogen (test code = .2 Urobilinogen) Protein (test code = Protein) Negative pH (test code = pH) 6.0 Blood (test code = Blood) Moderate Specific [place] (test code = 1.020 Specific [place]) Ketone (test code = Ketone) Negative Bilirubin (test code = Bilirubin) Negative Glucose (test code = Glucose) Negative [facility]
[2021-06-24 13:15] LABS: Absolute Lymphocytes (CBC) 1.9 K/uL (0.7-4.9); Hematocrit 39.8 % (39.6-49.0); Lymphocytes % 21.9 % (15.3-44.8); MPV 7.9 fL (7.6-11.3); RBC Red Blood Cell Count 4.64 M/uL (4.33-5.43)
[2021-06-24] MEDS ORDERED: NA CHLORIDE 0.9% 500 ML ONE ×2 (13:15→15:09)
[2021-06-24 13:16] LABS: Protime INR 1.03
--- NOTE | 2021-06-24 13:24 | RAD REPORT ---
EXAM DESCRIPTION: CT - Head Brain Wo Cont - 06/24/2021 1:13 pm CLINICAL HISTORY: HEADACHE Headache, drowsiness COMPARISON: Ct Stroke Brain Wo Cont dated 02/12/2020; Head Brain Wo Cont dated 07/03/2018 TECHNIQUE: All CT scans are performed using dose optimization technique as appropriate and may inclu de automated exposure control or mA/KV adjustment according to patient size. FINDINGS: No intracranial hemorrhage, hydrocephalus or extra-axial fluid collection.Mild generalized brain atrophy is present with mild periventricular and deep white matter chronic microvascular ische amanda changes.No areas of brain edema or evidence of midline shift. The paranasal sinuses and mastoids are essentially clear. The calvarium is intact. IMPRESSION: No acute intracranial abnormality.
[2021-06-24 13:35] LABS: Albumin 3.4 g/dL (3.4-5.0); Bilirubin Direct 0.1 mg/dL (0-0.2); Bilirubin Total 0.3 mg/dL (0.2-1.0); Magnesium 1.9 mg/dL (1.8-2.4); Potassium 4.1 mmol/L (3.5-5.1); Protein, Total 7.6 g/dL (6.4-8.2); Troponin High Sensitivity 13.6 pg/mL (<58.9)
--- NOTE | 2021-06-24 13:36 | RAD REPORT ---
EXAM DESCRIPTION: RAD - Chest Single View - 06/24/2021 1:31 pm CLINICAL HISTORY: CHEST PAIN Chest pain. COMPARISON: Chest Single View dated 05/17/2020; Chest Single View dated 02/12/2020; Chest Pa And Lat ( 2 Views) dated 06/21/2018; Chest Single View dated 06/16/2017 FINDINGS: Portable technique limits examination quality. The lungs are mildly emphysematous but grossly clear. The heart is normal in size. No displaced fract ures. IMPRESSION: No acute intrathoracic process suspected.
--- NOTE | 2021-06-24 13:50 | RAD REPORT ---
EXAM DESCRIPTION: US - Extrem Venous W Compress Isidro - 06/24/2021 1:39 pm CLINICAL HISTORY: Pain;Swelling Bilateral leg edema and swelling. COMPARISON: No comparisons TECHNIQUE: Real-time sonographic interrogation of the left and right lower extremity deep venous sys tems was performed. FINDINGS: Normal compressibility, flow augmentation, phasic flow and spontaneous flow is identified in both the left and right lower extremity deep venous systems. IMPRESSION: No sonographic evidence of left or right lower extremity deep venous thrombosis.
[2021-06-24] MEDS ORDERED: ASPIRIN 81 MG CHEWABLE TABLET ONE (15:09)
[2021-06-24] MEDS ORDERED: FOLIC ACID 5 MG/ML VIAL ONE (15:10)
[2021-06-24] MEDS ORDERED: NA CHLORIDE 0.9% 50 ML ONE (15:10)
--- NOTE | 2021-06-24 15:11 | ER ---
Nurse's Notes [facility] Name: Jaswant Funes Age: 76 yrs Sex: Male : 1945 Arrival Date: 06/24/2021 Time: 12:36 Bed 25 Private MD: Diagnosis: Dizziness and giddiness;Weakness;Transient cerebral ischemic attack, unspecified;Syncope Near Presentation: 06/24 12:42 Chief complaint: Patient states: Ears ringing with NG getting slowly worse since ll1 . L arm tingling started today. Reports L leg swelling. Coronavirus screen: Vaccine status: Patient reports receiving the 2nd dose of the covid vaccine. Client denies travel out of the [place] in the last 14 days. At this time, the client does not indicate any symptoms associated with coronavirus-19. Ebola Screen: Patient denies travel to an Ebola-affected area in the 21 days before illness onset. Initial Sepsis Screen: Does the patient meet any 2 criteria? No. Patient's initial sepsis screen is negative. Does the patient have a suspected source of infection? No. Patient's initial sepsis screen is negative. Risk Assessment: Do you want to hurt yourself or someone else? Patient reports no desire to harm self or others. Onset of symptoms was June 17, 2021. 12:42 Method Of Arrival: Wheelchair ll1 12:42 Acuity: TODD 3 ll1 Historical: - Allergies: 12:42 Morphine; ll1 - PMHx: 12:42 Bat Bite - left hand; BPH; GERD; Hypertension; Rattlesnake Bite - right hand; ll1 - PSHx: 12:42 None; ll1 - Immunization history:: Client reports receiving the 2nd dose of the Covid vaccine. - Social history:: Smoking status: Patient denies any tobacco usage or history of. - Family history:: not pertinent. Screenin:10 Abuse screen: Denies threats or abuse. Nutritional screening: No deficits noted. jd3 Tuberculosis screening: No symptoms or risk factors identified. Fall Risk Ambulatory Aid- None/Bed Rest/Nurse Assist (0 pts). Gait- Normal/Bed Rest/Wheelchair (0 pts) Mental Status- Oriented to own ability (0 pts). Total Tucker Fall Scale indicates No Risk (0-24 pts). 13:10 VAN Screening: Arm Drift: Patient shows no arm weakness. Patient is VAN negative. The jd3 patient has not been NPO before screening. The patient is currently on the following diet: regular The patient is alert, able to follow commands. The patient does not exhibit slurred or garbled speech The patient is not exhibiting difficulty speaking. The patient does not exhibit difficulty understanding words. The patient is able to swallow own secretions with no drooling or need for suction. Patient tolerated one teaspoon of water. No drooling, immediate coughing, gurgling, or clearing of the throat was noted. The patient tolerated 90mL of water. No drooling, immediate coughing, gurgling, or clearing of the throat was noted. The patient passed the bedside swallow screening. Oral medications may be given as ordered. Contact Physician for further diet orders. Provider notified of bedside swallow screening results: Lalo Kevin MD. Assessment: 13:11 General: Appears in no apparent distress. comfortable, Behavior is calm, cooperative, jd3 appropriate for age. Pain: Complains of pain in left arm Quality of pain is described as numb. Neuro: Level of Consciousness is awake, alert, obeys commands, Oriented to person, place, time, situation. Cardiovascular: Capillary refill < 3 seconds Patient's skin is warm and dry. Rhythm is regular. Respiratory: Airway is patent Respiratory effort is even, unlabored, Respiratory pattern is regular, symmetrical, Denies cough, shortness of breath. GI: No signs and/or symptoms were reported involving the gastrointestinal system. : No signs and/or symptoms were reported regarding the genitourinary system. EENT: Reports ringing in right ear. Derm: Skin is intact, Skin is dry, Skin is normal, Skin temperature is warm. Musculoskeletal: Circulation, motion, and sensation intact. Range of motion: intact in all extremities. 14:25 Reassessment: Patient appears in no apparent distress at this time. Patient and/or jd3 family updated on plan of care and expected duration. Pain level reassessed. Patient is alert, oriented x 3, equal unlabored respirations, skin warm/dry/pink. pt voices anxiety. provider notified. 15:22 Reassessment: Patient appears in no apparent distress at this time. Patient and/or jd3 family updated on plan of care and expected duration. Pain level reassessed. Patient is alert, oriented x 3, equal unlabored respirations, skin warm/dry/pink. pt taken for MRI at this time. 17:45 Reassessment: Patient appears in no apparent distress at this time. Patient and/or jd3 family updated on plan of care and expected duration. Pain level reassessed. Patient is alert, oriented x 3, equal unlabored respirations, skin warm/dry/pink. Dr. Mcgowan at beside talking about plan of care. plan to discharge pt in ER. awaiting ride. pt teaching over need for fallow-up. pt reported understanding of discharge instructions. Vital Signs: 12:42 Weight 78.02 kg; Height 5 ft. 5 in. (165.10 cm); Pain 10/10; ll1 12:43 BP 153 / 92; Pulse 72; Resp 17 S; Temp 97.7(TE); Pulse Ox 100% on R/A; jd3 14:25 BP 127 / 75; Pulse 58; Resp 14 S; Pulse Ox 100% on R/A; jd3 17:44 BP 146 / 82; Pulse 60; Resp 18 S; Pulse Ox 100% on R/A; jd3 12:42 Body Mass Index 28.62 (78.02 kg, 165.10 cm) ll1 ED Course: 12:36 Patient arrived in ED. ds1 12:41 Lalo Kevin MD is Attending Physician. arely 12:41 Arm band placed on Patient placed in an exam room, on a stretcher. ll1 12:43 Juan Goncalves RN is Primary Nurse. jd3 12:44 Triage completed. ll1 13:06 Inserted saline lock: 20 gauge in right antecubital area, using aseptic technique. jd3 Blood collected. 13:10 Patient has correct armband on for positive identification. Bed in low position. Call jd3 light in reach. Side rails up X 1. plater hot dip on. Pulse ox on. NIBP on. 13:13 CT Head Brain wo Cont In Process Unspecified. EDMS 13:31 XRAY Chest (1 view) In Process Unspecified. EDMS 13:39 US Extremity Venous W Compression Isidro In Process Unspecified. EDMS 15:10 Drew Mcgowan DO is Hospitalizing Provider. arely 16:00 Brain Wo Cont In Process Unspecified. EDMS 16:25 US Carotid Artery Bilateral In Process Unspecified. EDMS 17:21 Malina Greenwood DO is Referral Physician. arely 17:22 Alejandro Urrutia MD is Referral Physician. arely 17:22 Colin Mace MD is Referral Physician. arely 17:45 No provider procedures requiring assistance completed. IV discontinued, intact, jd3 bleeding controlled, No redness/swelling at site. Pressure dressing applied. Administered Medications: 13:51 Drug: NS 0.9% 500 ml Route: IV; Rate: bolus; Site: right antecubital; jd3 14:50 Follow up: Response: No adverse reaction; IV Status: Completed infusion jd3 15:16 Drug: Aspirin Chewable Tablet 324 mg Route: PO; jd3 16:15 Follow up: Response: No adverse reaction jd3 16:34 Drug: foLIC Acid 1 mg Route: IVPB; Site: right antecubital; jd3 17:30 Follow up: Response: No adverse reaction; IV Status: Completed infusion jd3 16:34 Drug: NS 0.9% 500 ml Route: IV; Rate: bolus; Site: right antecubital; jd3 17:30 Follow up: Response: No adverse reaction; IV Status: Completed infusion jd3 17:37 Drug: Tylenol 1000 mg Route: PO; jd3 17:48 Follow up: Response: No adverse reaction jd3 Outcome: 15:10 Decision to Hospitalize by Provider. arely 17:23 Discharge ordered by . arely 17:47 Condition: stable jd3 17:47 Discharge instructions given to patient, Instructed on discharge instructions, follow up and referral plans. medication usage, Demonstrated understanding of instructions, follow-up care, medications, Prescriptions given X 2. 18:24 Patient left the ED. jd3 18:24 Discharged to home via wheelchair, with family. jd3 Signatures: Dispatcher [employer] [facility] Lalo Kevin MD MD cha Sanford, Demi ds1 Juan Goncalves RN RN Neri Estrada RN RN ll1 Corrections: (The following items were deleted from the chart) 13:19 13:12 NS 0.9% 500 ml IV at bolus in right antecubital jd3 jd3 15:23 15:22 Reassessment: Patient appears in no apparent distress at this time. Patient jd3 and/or family updated on plan of care and expected duration. Pain level reassessed. Patient is alert, oriented x 3, equal unlabored respirations, skin warm/dry/pink. provider at bedside discussing plan of care jd3 17:47 14:25 BP 127 / 75; Pulse 48bpm; Resp 14bpm; Spontaneous; Pulse Ox 100% RA; jd3 jd3 1747 17:45 Reassessment: Patient appears in no apparent distress at this time. Patient jd3 and/or family updated on plan of care and expected duration. Pain level reassessed. Patient is alert, oriented x 3, equal unlabored respirations, skin warm/dry/pink. jd3
--- NOTE | 2021-06-24 15:11 | EDPHYS ---
Physician Documentation [facility] Name: Jaswant Funes Age: 76 yrs Sex: Male : 1945 Arrival Date: 06/24/2021 Time: 12:36 Bed 25 Private MD: BARBARA Physician Lalo Kevin HPI: 06/24 15:05 This 76 yrs old Male presents to ER via Wheelchair with complaints of Ear arely Ringing. 15:05 The patient's problem is reported as paresthesias, in left upper extremity, in left arely lower extremity, weakness, that is generalized. Onset: The symptoms/episode began/occurred yesterday. Duration: The episodes are intermittent. Context: symptoms became apparent at an unknown time, occurred at home, occurred while the patient was at rest. The symptoms are alleviated by nothing. The symptoms are aggravated by nothing. The patient presents with dizziness, lightheadedness, sense of spinning. Onset: The symptoms/episode began/occurred 1 day(s) ago. Context: occurred at home, occurred while the patient was sitting. Associated signs and symptoms: Pertinent positives: headache, near-syncope. Associated signs and symptoms: Pertinent positives: headache, lightheadedness. Historical: - Allergies: 12:42 Morphine; ll1 - PMHx: 12:42 Bat Bite - left hand; BPH; GERD; Hypertension; Rattlesnake Bite - right hand; ll1 - PSHx: 12:42 None; ll1 - Immunization history:: Client reports receiving the 2nd dose of the Covid vaccine. - Social history:: Smoking status: Patient denies any tobacco usage or history of. - Family history:: not pertinent. ROS: 15:05 Constitutional: Negative for fever, chills, and weight loss, Eyes: Negative for injury, arely pain, redness, and discharge, ENT: Negative for injury, pain, and discharge, Neck: Negative for injury, pain, and swelling, Cardiovascular: Negative for chest pain, palpitations, and edema, Respiratory: Negative for shortness of breath, cough, wheezing, and pleuritic chest pain, Abdomen/GI: Negative for abdominal pain, nausea, vomiting, diarrhea, and constipation, Back: Negative for injury and pain, : Negative for injury, bleeding, discharge, and swelling, MS/Extremity: Negative for injury and deformity, Skin: Negative for injury, rash, and discoloration, Psych: Negative for depression, anxiety, suicide ideation, homicidal ideation, and hallucinations, Allergy/Immunology: Negative for hives, rash, and allergies, Endocrine: Negative for neck swelling, polydipsia, polyuria, polyphagia, and marked weight changes, Hematologic/Lymphatic: Negative for swollen nodes, abnormal bleeding, and unusual bruising. 15:05 Neuro: Positive for dizziness, headache, near syncope. Exam: 15:05 Radiologist reports: negative arely 15:05 Constitutional: This is a well developed, well nourished patient who is awake, alert, and in no acute distress. Head/Face: Normocephalic, atraumatic. Eyes: Pupils equal round and reactive to light, extra-ocular motions intact. Lids and lashes normal. Conjunctiva and sclera are non-icteric and not injected. Cornea within normal limits. Periorbital areas with no swelling, redness, or edema. ENT: Nares patent. No nasal discharge, no septal abnormalities noted. Tympanic membranes are normal and external auditory canals are clear. Oropharynx with no redness, swelling, or masses, exudates, or evidence of obstruction, uvula midline. Mucous membranes moist. Neck: Trachea midline, no thyromegaly or masses palpated, and no cervical lymphadenopathy. Supple, full range of motion without nuchal rigidity, or vertebral point tenderness. No Meningismus. Chest/axilla: Normal chest wall appearance and motion. Nontender with no deformity. No lesions are appreciated. Cardiovascular: Regular rate and rhythm with a normal S1 and S2. No gallops, murmurs, or rubs. Normal PMI, no JVD. No pulse deficits. Respiratory: Lungs have equal breath sounds bilaterally, clear to auscultation and percussion. No rales, rhonchi or wheezes noted. No increased work of breathing, no retractions or nasal flaring. Abdomen/GI: Soft, non-tender, with normal bowel sounds. No distension or tympany. No guarding or rebound. No evidence of tenderness throughout. Back: No spinal tenderness. No costovertebral tenderness. Full range of motion. Male : Normal genitalia with no discharge or lesions. Skin: Warm, dry with normal turgor. Normal color with no rashes, no lesions, and no evidence of cellulitis. MS/ Extremity: Pulses equal, no cyanosis. Neurovascular intact. Full, normal range of motion. Neuro: Awake and alert, GCS 15, oriented to person, place, time, and situation. Cranial nerves II-XII grossly intact. Motor strength 5/5 in all extremities. Sensory grossly intact. Cerebellar exam normal. Normal gait. Psych: Awake, alert, with orientation to person, place and time. Behavior, mood, and affect are within normal limits. 15:05 ECG was reviewed by the Attending Physician. Vital Signs: 12:42 Weight 78.02 kg; Height 5 ft. 5 in. (165.10 cm); Pain 10/10; ll1 12:43 BP 153 / 92; Pulse 72; Resp 17 S; Temp 97.7(TE); Pulse Ox 100% on R/A; jd3 14:25 BP 127 / 75; Pulse 58; Resp 14 S; Pulse Ox 100% on R/A; jd3 17:44 BP 146 / 82; Pulse 60; Resp 18 S; Pulse Ox 100% on R/A; jd3 12:42 Body Mass Index 28.62 (78.02 kg, 165.10 cm) ll1 MDM: 12:41 Patient medically screened. arely 15:08 Differential diagnosis: CVA, TIA, metabolic disorder. Differential diagnosis: cardiac arely arrhythmia, CVA, generalized weakness, idiopathic dizziness, near-syncope. Data reviewed: vital signs, nurses notes, lab test result(s), EKG, radiologic studies, CT scan, doppler, MRI. Data interpreted: monitoring and evaluation advisor: rate is 48 beats/min, rhythm is regular, Pulse oximetry: on room air is 100 %. Test interpretation: by ED physician or midlevel provider: ECG, plain radiologic studies. Counseling: I had a detailed discussion with the patient and/or guardian regarding: the historical points, exam findings, and any diagnostic results supporting the discharge/admit diagnosis, lab results, radiology results. 17:19 Physician consultation: Drew Mcgowan DO regarding admission, to the telemetry unit. arely patient's condition, and will see patient in ED, discharges patient from the emergency department, want me to dispo with follow up , see [facility] note. 06/24 12:51 Order name: Basic Metabolic Panel; Complete Time: 15: jd3 06/24 12:51 Order name: CBC with Diff; Complete Time: 15: jd3 06/24 12:51 Order name: LFT's; Complete Time: 15: [facility] 06/24 12:51 Order name: Magnesium; Complete Time: 15: [facility] 06/24 12:51 Order name: NT PRO-BNP; Complete Time: 15: [facility] 06/24 12:51 Order name: PT-INR; Complete Time: 15: [facility] 06/24 12:51 Order name: Troponin HS; Complete Time: 15: [facility] 06/24 12:51 Order name: XRAY Chest (1 view); Complete Time: 15: [facility] 06/24 13:02 Order name: CT Head Brain wo Cont; Complete Time: 15: [facility] 06/24 13:02 Order name: US Extremity Venous W Compression Isidro; Complete Time: 15: [facility] 06/24 13:02 Order name: Asprin; Complete Time: 15: [facility] 06/24 15:02 Order name: US Carotid Artery Bilateral; Complete Time: 17:17 [facility] 06/24 15:57 Order name: SARS-COV-2 RT PCR (Document "Date of Onset" if Symptomatic) 06/24 12:51 Order name: EKG; Complete Time: 12:51 [facility] 06/24 12:51 Order name: Cardiac monitoring; Complete Time: 12:53 [facility] 06/24 12:51 Order name: EKG - Nurse/Tech; Complete Time: 12:53 [facility] 06/24 12:51 Order name: IV Saline Lock; Complete Time: 13:05 [facility] 06/24 12:51 Order name: Labs collected and sent; Complete Time: 13: [facility] 06/24 12:51 Order name: O2 Per Protocol; Complete Time: 12:53 [facility] 06/24 12:51 Order name: O2 Sat Monitoring; Complete Time: 12:53 [facility] 06/24 15:24 Order name: Brain Wo Cont; Complete Time: 16:34 EDMS EC:05 Rate is 71 beats/min. Rhythm is regular. QRS [place] is Normal. [place] interval is normal. QRS arely interval is normal. QT interval is normal. No Q waves. T waves are Normal. No ST changes noted. Clinical impression: Normal ECG and No evidence of ischemia. Interpreted by me. Reviewed by me. Administered Medications: 13:51 Drug: NS 0.9% 500 ml Route: IV; Rate: bolus; Site: right antecubital; jd3 14:50 Follow up: Response: No adverse reaction; IV Status: Completed infusion jd3 15:16 Drug: Aspirin Chewable Tablet 324 mg Route: PO; jd3 16:15 Follow up: Response: No adverse reaction jd3 16:34 Drug: foLIC Acid 1 mg Route: IVPB; Site: right antecubital; jd3 17:30 Follow up: Response: No adverse reaction; IV Status: Completed infusion jd3 16:34 Drug: NS 0.9% 500 ml Route: IV; Rate: bolus; Site: right antecubital; jd3 17:30 Follow up: Response: No adverse reaction; IV Status: Completed infusion jd3 17:37 Drug: Tylenol 1000 mg Route: PO; jd3 17:48 Follow up: Response: No adverse reaction jd3 Disposition Summary: 06/24/21 17:23 Discharge Ordered Location: Home(06/24/21 17:23) arely Problem: new(06/24/21 17:23) arely Symptoms: have improved(06/24/21 17:23) arely Condition: Fair(06/24/21 17:23) arely Diagnosis - Dizziness and giddiness(06/24/21 17:23) arely - Weakness arely - Transient cerebral ischemic attack, unspecified(06/24/21 17:23) arely - Syncope Near(06/24/21 17:23) arely Followup: arely - With: Malina Greenwood DO - When: Tomorrow - Reason: Recheck today's complaints, Continuance of care, Re-evaluation by your physician Followup: arely - With: Alejnadro Urrutia MD - When: 2 - 3 days - Reason: Recheck today's complaints, Re-evaluation by your physician Followup: arely - With: Colin Mace MD - When: 2 - 3 days - Reason: Recheck today's complaints, Re-evaluation by your physician Discharge Instructions: - Discharge Summary Sheet arely - Chronic Back Pain arely - Dizziness arely - Near-Syncope arely - Stroke Prevention arely - Weakness arely - Near-Syncope, [id number] arely - Chronic Back Pain, Azcg-ns-Ixcw arely - Transient Ischemic Attack, Ijzo-ai-[id number] arely - Weakness, Rxzc-ke-[id number] arely - Aspirin and Your Heart arely - Dizziness, Uvfa-ia-[id number] arely Forms: - Medication Reconciliation Form arely - Thank You Letter arely - Antibiotic Education arely - Prescription Opioid Use arely Prescriptions: - Pepcid 20 mg Oral Tablet - take 1 tablet by ORAL route every 12 hours for 10 days; 20 tablet; Refills: 0, arely Product Selection Permitted - Coreg 3.125 mg Oral Tablet - take 1 tablet by ORAL route every 12 hours with food; 40 tablet; Refills: 0, arely Product Selection Permitted Signatures: Dispatcher [employer] EDMS Lalo Kevin MD MD cha Davies, Jonathon RN RN jNeri Cyr RN RN ll1 Corrections: (The following items were deleted from the chart) 15:24 15:03 MR STROKE PROTOCOL+MRI.RAD.BRZ ordered. [facility] EDPR 17:19 15:10 Observation arely arely 17:19 15:10 Prezas, Drew arely arely 17:19 15:10 Telemetry/MedSurg (observation) arely arely 17:19 15:10 Fair arely arely 17:19 15:10 new arely arely 17:19 15:10 have improved arely arely 17:19 15:10 Standard arely arely 17:19 15:10 arely arely 17:19 15:10 Dizziness and giddiness arely arely 17:19 15:10 Transient cerebral ischemic attack, unspecified arely arely 17:19 16:34 Syncope Near arely arely
--- NOTE | 2021-06-24 16:12 | RAD REPORT ---
EXAM DESCRIPTION: MRI - Brain Wo Cont - 06/24/2021 4:03 pm CLINICAL HISTORY: DIZZINESS Headache, drowsiness COMPARISON: Head Brain Wo Cont dated 06/24/2021; Extrem Venous W Compress Isidro dated 06/24/2021; Brain Wo Cont dated 02/13/2020 TECHNIQUE: Multi-sequence, multiplanar MR imaging of the brain was performed without contrast. FINDINGS: No intracranial hemorrhage, hydrocephalus or extra-axial fluid collections.Moderate genera lized brain atrophy. Mild periventricular and deep white matter chronic microvascular ischemic change s. No edema or shift of midline structures. No findings to suspect brain mass. DWI is negative for ac daniel CVA. Midline structures are normally formed. Mastoid air cells and paranasal sinuses are clear. IMPRESSION: Kuai-in-pxtacaon generalized brain atrophy. Negative for acute process such as CVA, bleed or hydrocephalus.
--- NOTE | 2021-06-24 16:35 | RAD REPORT ---
EXAM DESCRIPTION: - CP - 06/24/2021 4:25 pm CLINICAL HISTORY: DIZZINESS Headache, drowsiness COMPARISON: Carotid Artery Bilateral dated 02/13/2020 TECHNIQUE: Real-time sonographic evaluation of both carotid systems was performed. Doppler interroga tion was performed with waveform tracing bilaterally. FINDINGS: Normal high resistance waveforms are noted in both external carotid arteries. The common c arotid arteries and internal carotid arteries show normal low resistance waveforms. Minimal plaque is seen in both carotid bulbs. Peak systolic and end diastolic velocity values and the ICA/CCA ratios are in the non-hemodynamically significant range. Antegrade flow seen in both vertebral arteries. IMPRESSION: Minimal plaque is seen in both carotid bulbs. No evidence of a hemodynamically significant stenosis.
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
[2021-06-24] MEDS ORDERED: ACETAMINOPHEN 500 MG TAB ONE (17:27)
[2021-06-24 19:02] VITALS: TEMP 97.7; O2SAT 100
[2021-06-24 19:05] VITALS: BP 146/82
--- NOTE | 2021-06-26 15:19 | EKG ---
Test Date: 2021-06-24 Test Time: 12:59:55 Manager Business Process: KARLOS MEASUREMENT RESULTS: Intervals: Rate: 71 TX: 174 QRSD: 86 QT: 360 QTc: 391 [place]: P: 57 TX: 174 QRS: 58 T: 71 INTERPRETIVE STATEMENTS: Normal sinus rhythm Normal ECG Compared to ECG 05/17/2020 17:28:52 No significant changes Electronically Signed On 06-26-21 15:15:05 MANAGER ACQUISITION by Alejandro Urrutia
== END 2021-06-24 18:24 | disposition home or self-care (01) ==
LOC: ER 12:29
DX: G45.9 Transient cerebral ischemic attack, unspecified (principal); R53.1 Weakness; R55 Syncope and collapse; I10 Essential (primary) hypertension; N40.0 Benign prostatic hyperplasia without lower urinary tract symptoms; Z20.822 Contact with and (suspected) exposure to COVID-19; Z88.5 Allergy status to narcotic agent; Z82.49 Family history of ischemic heart disease and other diseases of the circulatory system; Z80.0 Family history of malignant neoplasm of digestive organs
CPT/HCPCS: 96365; 96361; 93005; 85025; 80048; 36415; 83735; 85610; 80329; 80076; 84484; 83880; 70450; 71045; 93880; 93970; 70551; 99284; U0003; J7040 ×2